=== PATIENT | female | born 1945 | race Caucasian/White ===

== ENCOUNTER → 2017-05-16 | Outpatient (CLI) | payer OTHER | LOC: FIMAGING 14:37 | PROVIDERS: ATTEND Internal Medicine | DX: Z12.31 Encounter for screening mammogram for malignant neoplasm of breast (principal) ==

== ENCOUNTER 2017-06-29 00:43 | Inpatient (IN) | payer OTHER ==
[2017-06-29] MEDS ORDERED: MAGNESIUM SULF 2 GM/WATER 50 ML BAG IV ONE (01:03)
[2017-06-29] MEDS ORDERED: MAGNESIUM SULF 2 GM/WATER 50 ML IV ONE (01:16)
[2017-06-29] MEDS ORDERED: LORazepam 2 MG/ML INJ ONE (01:17)
[2017-06-29] MEDS ORDERED: LORazepam 2 MG/ML INJ IVP ONE (01:19)
[2017-06-29] MEDS ORDERED: NS 1,000 ML IV ONE (01:21)
[2017-06-29 01:22] LABS: PLATELET COUNT 354 10^3/uL (150-400)
--- NOTE | 2017-06-29 01:26 | CPEKG ---
Heart Rate: 102 RR Interval: 588 QRSD Interval: 96 QT Interval: 368 QTC Interval: 480 QRS [place]: 45 T Wave [place]: 19 EKG Severity - ABNORMAL ECG - EKG Impression: sinsus tachycardia Electronically Signed By: Mckayla Irizarry 29-Jun-2017 07:38:58
--- NOTE | 2017-06-29 02:08 | EDPHY ---
H & P Stated Complaint: rapid hr Time Seen by Provider: 06/29/17 01:47 HPI/ROS: HPI The patient presents with palpitations since midnight, brought in by ambulance. Paramedics report that she is in a sinus tachycardia at a rate of 140. The patient said she was awakened with these. They were associated with nausea. She has not any chest pain, shortness of breath, vomiting. She does not have any dizziness or lightheadedness. As she said she was feeling well yesterday and went out to dinner. She had a cataract operation performed about 4 days ago. She she is on now steroid eyedrops as well as antibiotic eyedrops. She denies any other new medications. She has no prior history of similar. She believes she had a cardiac stress test several years ago which was unremarkable.. REVIEW OF SYSTEMS Constitutional: No fever, no chills. Eyes: No discharge. ENT: No sore throat. Cardiovascular: No chest pain, no palpitations. Respiratory: No cough, no shortness of breath. Gastrointestinal: No abdominal pain, no vomiting. Genitourinary: No hematuria. Musculoskeletal: No back pain. Skin: No rashes. Neurological: No headache. PMHx: Hypertension, hyperlipidemia Soc Hx: Lives at home PHYSICAL General Appearance: Alert, no distress Eyes: Pupils equal and round no pallor or injection ENT, Mouth: Mucous membranes moist Respiratory: There are no retractions, lungs are clear to auscultation Cardiovascular: Regular rate and rhythm Gastrointestinal: Abdomen is soft and non-tender, no masses, bowel sounds normal Neurological: A&O, moves all extremities Skin: Warm and dry, no rashes Musculoskeletal: Neck is supple non tender Extremities: symmetrical, full range of motion Psychiatric: Patient is oriented X 3, there is no agitation Source: Patient, EMS Exam Limitations: No limitations - Personal History Current Tetanus Diphtheria and Acellular Pertussis (TDAP): Yes - Medical/Surgical History Hx Asthma: No Hx Chronic Respiratory Disease: No Hx Diabetes: No Hx Cardiac Disease: Yes Hx Renal Disease: No Hx Cirrhosis: No Hx Alcoholism: No Hx HIV/AIDS: No Hx Splenectomy or Spleen Trauma: No Other PMH: HTN, Hyperlipidemia, Tubal Ligation, Appendectomy, Tonsilectomy - Social History Smoking Status: Never smoked Constitutional: Initial Vital Signs Temperature (C) 36.6 C 06/29/17 00:53 Heart Rate 150 H 06/29/17 00:53 Respiratory Rate 18 06/29/17 00:53 Blood Pressure 148/108 H 06/29/17 00:53 O2 Sat (%) 95 06/29/17 00:53 O2 Delivery Mode Room Air Allergies/Adverse Reactions: No Known Allergies Allergy (Unverified 06/29/17 00:52) Home Medications: Medication Instructions Recorded Lisinopril [Zestril 40 mg (RX)] 40 mg PO DAILY 07/02/13 Simvastatin [Zocor 20 mg (RX)] 20 mg PO DAILY18 07/02/13 amLODIPine BESYLATE [Norvasc 5 mg 5 mg PO DAILY 07/02/13 (RX)] HCTZ (*) 06/29/17 Medical Decision Making - Diagnostics EKG Interpretation: EKG: Complete interpretation has been separately recorded in the [facility] archive. Summary impression: Tachycardia with rate of 102, normal sinus rhythm , QT interval measures at 480 Imaging Results: Chest x-ray one view shows no cardiomegaly, no infiltrate, interpreted by me, radiology interpretation is pending. Imaging: I viewed and interpreted images myself Differential Diagnosis: 71-year-old female history of hypertension hyperlipidemia presents brought in by ambulance for palpitations. On monitor here initially, she appears to be in SVT. She was given fluids. It was then noted that she had a short run of ventricular tachycardia. She was given magnesium an additional fluids. She then spontaneously converted to a normal sinus rhythm with slightly prolonged QT. She felt much better after this. Labs, chest x-ray were checked and were unremarkable. Given her age and comorbidities, I feel she should be admitted for further evaluation of this SVT. We will keep her on the playground monitor. I have consulted with Dr. Martinez of the hospitalist service and we will admit her. - Data Points Laboratory Results: Laboratory Results 06/29/17 00:55 06/29/17 00:55 06/29/17 06/29/17 06/29/17 00:55 00:55 00:55 WBC RBC Hgb Hct MCV MCH MCHC RDW Plt Count MPV Neut % (Auto) Lymph % (Auto) Story % (Auto) Eos % (Auto) Baso % (Auto) Nucleat RBC Rel Count Absolute Neuts (auto) Absolute Lymphs (auto) Absolute Monos (auto) Absolute Eos (auto) Absolute Basos (auto) Absolute Nucleated RBC Immature Gran % Immature Gran # D-Dimer 0.37 ug/mLFEU ug/mLFEU (0.00-0.50) Sodium 143 mEq/L mEq/L (135-145) Potassium 3.7 mEq/L mEq/L (3.5-5.2) Chloride 104 mEq/L mEq/L (97-110) Carbon Dioxide 23 mEq/l mEq/l (22-31) Anion Gap 16 mEq/L mEq/L (8-16) BUN 15 mg/dL mg/dL (7-23) Creatinine 0.8 mg/dL mg/dL (0.6-1.0) Estimated GFR > 60 Glucose 111 mg/dL H mg/dL (70-100) Calcium 10.1 mg/dL mg/dL (8.5-10.4) Phosphorus 3.9 mg/dL mg/dL (2.5-4.5) Magnesium 2.1 mg/dL mg/dL (1.6-2.3) Troponin I < 0.012 ng/mL ng/mL (0.000-0.034) TSH 5.870 uIU/mL H uIU/mL (0.465-4.680) 06/29/17 00:55 WBC 10.23 10^3/uL H 10^3/uL (3.80-9.50) RBC 5.15 10^6/uL 10^6/uL (4.18-5.33) Hgb 15.4 g/dL g/dL (12.6-16.3) Hct 45.8 % % (38.0-47.0) MCV 88.9 fL fL (81.5-99.8) MCH 29.9 pg pg (27.9-34.1) MCHC 33.6 g/dL g/dL (32.4-36.7) RDW 13.1 % % (11.5-15.2) Plt Count 354 10^3/uL 10^3/uL (150-400) MPV 9.9 fL fL (8.7-11.7) Neut % (Auto) 51.1 % % (39.3-74.2) Lymph % (Auto) 38.7 % % (15.0-45.0) Story % (Auto) 6.6 % % (4.5-13.0) Eos % (Auto) 2.6 % % (0.6-7.6) Baso % (Auto) 0.7 % % (0.3-1.7) Nucleat RBC Rel Count 0.0 % % (0.0-0.2) Absolute Neuts (auto) 5.22 10^3/uL 10^3/uL (1.70-6.50) Absolute Lymphs (auto) 3.96 10^3/uL H 10^3/uL (1.00-3.00) Absolute Monos (auto) 0.68 10^3/uL 10^3/uL (0.30-0.80) Absolute Eos (auto) 0.27 10^3/uL 10^3/uL (0.03-0.40) Absolute Basos (auto) 0.07 10^3/uL 10^3/uL (0.02-0.10) Absolute Nucleated RBC 0.00 10^3/uL 10^3/uL (0-0.01) Immature Gran % 0.3 % % (0.0-1.1) Immature Gran # 0.03 10^3/uL 10^3/uL (0.00-0.10) D-Dimer Sodium Potassium Chloride Carbon Dioxide Anion Gap BUN Creatinine Estimated GFR Glucose Calcium Phosphorus Magnesium Troponin I TSH Medications Given: Discontinued Medications Magnesium Sulfate (Magnesium Sulf 2 Gm (Premix)) 50 mls @ 50 mls/hr IV EDNOW ONE Stop: 06/29/17 02:15 Last Admin: 06/29/17 01:22 Dose: 50 mls Sodium Chloride (Ns) 1,000 mls @ 0 mls/hr IV ONCE ONE; Wide Open PRN Reason: Protocol Stop: 06/29/17 01:22 Last Admin: 06/29/17 01:23 Dose: 1,000 mls Lorazepam (Ativan Injection) 0.5 mg IVP EDNOW ONE Stop: 06/29/17 01:20 Last Admin: 06/29/17 02:30 Dose: Not Given Potassium Chloride (Klor-Con) 40 meq PO ONCE ONE Stop: 06/29/17 03:10 Last Admin: 06/29/17 05:07 Dose: 40 meq Departure - Departure
[2017-06-29] MEDS ORDERED: ONDANSETRON DISINTEGRATING 4 MG TAB PO PRN (03:07)
[2017-06-29] MEDS ORDERED: ACETAMINOPHEN 325 MG TAB PO PRN (03:07)
[2017-06-29] MEDS ORDERED: ONDANSETRON 4 MG/2 ML VIAL IVP PRN (03:07)
[2017-06-29] MEDS ORDERED: POTASSIUM CL 20 MEQ TAB PO ONE (03:09)
--- NOTE | 2017-06-29 04:52 | GHP ---
[f rep st] HISTORY AND PHYSICAL DATE OF ADMISSION: 06/29/2017 CHIEF COMPLAINT: SVT, palpitations. HISTORY OF PRESENT ILLNESS: A 71-year-old female with history of hypertension, hyperlipidemia, and arthritis, who was brought in by ambulance with palpitations. EMS reported sinus tachycardia with rate of 140. She was awakened with a racing heart and felt like she was going to . Thirty minutes later, she developed nausea, but no emesis. No chest pain, shortness of breath, dizziness, or lightheadedness. She went out to dinner with her , had a burrito and a Mala without any issues. She had left cataract surgery 4 days ago and is currently on steroid and antibiotic eyedrops. She is currently enrolled in a study in which she receives a supplement, which is either multivitamin, cocoa, versus placebo. She drinks 3 cups of coffee a day. She walks with her at least 40-50 minutes a day and goes to the gym a couple times a week without ever having chest pain, palpitations, or shortness of breath. No PND, orthopnea, or lower extremity edema. She had a normal exercise treadmill test June 2013. In the ER, she was noted to be in SVT with heart rate in the 140s and had 5 beats of nonsustained VT, but converted to normal sinus rhythm without medications. REVIEW OF SYSTEMS: I completed a 10-point review of systems, negative except as noted in HPI. PAST MEDICAL HISTORY: Hypertension, hyperlipidemia, hip arthritis. PAST SURGICAL HISTORY: Appendectomy, tubal ligation, tonsillectomy, left cataract surgery. FAMILY HISTORY: Mother with coronary disease in the 50s. SOCIAL HISTORY: No tobacco. Has 1 alcoholic drink a week. No drugs. Is very active with walking or going to the gym. ALLERGIES: None. HOME MEDICATIONS: 1. Norvasc 5 mg daily. 2. Simvastatin 20 mg daily. 3. Zestril 40 mg daily. 4. Hydrochlorothiazide. 5. A drug study supplement daily. PHYSICAL EXAMINATION: VITAL SIGNS: Temperature afebrile, blood pressure 140/80 , heart rate 81 to 140s, respirations 16, 94% on room air. GENERAL: Well- appearing female, sitting up in bed, no acute distress. HEENT: PERRLA. Left eye with shield. CV: Regular rate and rhythm. No murmurs, gallops, or rubs. No lower extremity edema. LUNGS: Clear. No crackles or wheezing. ABDOMEN: Soft, nontender, nondistended. Positive bowel sounds. : No Arreguin. MUSCULOSKELETAL: 5/5 upper and lower extremity strength. NEURO: Two through 12 intact. PSYCH: Alert and oriented x3. LABORATORY DATA: WBC 10, hemoglobin 15, hematocrit 45, platelets 354. D-dimer is 0.37. Sodium 143, potassium 3.7, chloride 104, carbon dioxide 23, creatinine 0.8, glucose 111, calcium 10.1, phos 3.9, Mag 2.1. Troponin less than 0.012. TSH is 5.8. Chest x-ray is personally reviewed. No evidence of infection or edema. EKG: Personally reviewed, junctional tachycardia. Rhythm strip showed 4-5 beats of unsustained VT. ASSESSMENT AND PLAN: 1. Supraventricular tachycardia: She converted to normal rate and rhythm, spontaneous in the emergency room. D-dimer and troponin are negative. No ischemic changes on EKG. She denies chest pain or shortness of breath. TSH is elevated at 5. We will monitor on telemetry. Repeat troponin. Can consider an echocardiogram. 2. Nonsustained ventricular tachycardia, 4-5 beats: Mag and K were repleted. No evidence of ischemia with negative troponin. Has had a negative exercise treadmill in 2013. 3. Hypertension: Resume home medications. 4. Hyperlipidemia: Statin. 5. Deep venous thrombosis prophylaxis: Lovenox. 6. Disposition: Patient warrants observation admission given acute supraventricular tachycardia, palpitations requiring telemetry. Repeat cardiac enzymes. The patient may be able to discharge later today, if clinically stable. /[id number]/MODL MTDD
--- NOTE | 2017-06-29 05:09 | CPEKG ---
Heart Rate: 65 RR Interval: 923 P-R Interval: 140 QRSD Interval: 88 QT Interval: 416 QTC Interval: 433 P [place]: 37 QRS [place]: 32 T Wave [place]: 38 EKG Severity - NORMAL ECG - EKG Impression: SINUS RHYTHM Electronically Signed By: Mckayla Irizarry 29-Jun-2017 07:37:57
[2017-06-29] MEDS ORDERED: ENOXAPARIN 40 MG/0.4 ML SYR SC SCH (09:00)
[2017-06-29] MEDS ORDERED: HYDROCHLOROTHIAZIDE 12.5 MG PO SCH (12:15)
[2017-06-29] MEDS: LISINOPRIL 40 MG TAB PO SCH (12:43)
[2017-06-29] MEDS: amLODIPine BESYLATE 5 MG TAB PO SCH (12:43)
[2017-06-29] MEDS: HYDROCHLOROTHIAZIDE 12.5 MG CAP PO SCH (12:43)
--- NOTE | 2017-06-29 14:15 | ASMTCASEMG ---
Living Arrangements What is your living Answers: With Spouse arrangement? Who do you live with? Type Of Residence What kind of residence do Answers: House you live in? Discharge Plan Comments Coordination Status Comments Notes: Pt is a 71 y/o female admitted for SVT and palpitations. Pt will most likely d/c independent when medically stable. No therapies ordered at this time. CM available for changes. Plan: Independent Date Signed: 06/29/2017 02:14 PM Electronically Signed By:REBECCA Menjivar
[2017-06-29] MEDS: APIXABAN 5 MG TAB PO SCH ×2 (14:40→21:25)
[2017-06-29] MEDS: POLYMYXIN B SULFATE/TMP 10 ML OPHT.BTL LEFTEYE SCH ×2 (15:56→21:25)
[2017-06-29] MEDS: prednisoLONE ACET 1% 5 ML OPHT.BTL LEFTEYE SCH ×2 (15:56→21:24)
[2017-06-29] MEDS ORDERED: ATORVASTATIN CALCIUM 10 MG TAB PO SCH (18:00)
[2017-06-29] MEDS ORDERED: NON-FORMULARY NEW DRUG (Simvastatin [Zocor 20 Mg] 20 MG) PO SCH (18:00)
--- NOTE | 2017-06-29 18:18 | ECHO ---
[email or web address] [address] [address] Main: [phone] Fax: Transthoracic Echocardiogram Name: SEN TAPIA MR#: [id number] Study Date: 06/29/2017 Study Time: 02:02 PM Date of : 1945 Age: 71 year(s) Height: 154.9 cm (61 in.) Weight: 58.51 kg (129 lb.) BSA: 1.57 m2 Gender: Female Examination: Echo Indication: SVT with episodes of NS-VT Image Quality: Contrast: Requested by: Manjula Dunlap BP: 173 mmHg/98 mmHg Heart Rate: Rhythm: Indication: SVT with episodes of NS-VT Procedure Staff Auricular Therapist: Carmencita Regalado [facility] Reading Physician: Real Mcelroy Requesting Provider: Conclusions: Normal size left ventricle. No LV hypertrophy. Global hypercontractility of the left ventricle. The ejection fraction is estimated to be 75-80 %. No regional wall motion abnormality. Normal diastolic LV function. Normal size right ventricle. The left atrium is mildly dilated. The right atrium is normal in size. Mild to moderate mitral regurgitation. Mild aortic cusp calcification is noted. Mild aortic valve regurgitation is present. Moderate tricuspid regurgitation is present. The pulmonary artery pressure is mildly increased. No pericardial effusion. Measurements: Chambers Valvular Assessment AV/MV Valvular Assessment TV/PV Normal Normal Normal Name Value Range Name Value Range Name Value Range Ao Guerita (MM): 3.0 cm (2.2 cm-3.7 AV meanP mmHg ( - ) TR Vmax: 3.01 mm/s ( - ) cm) AR (PHT): 466 ms ( - ) TR PGmax: 36 mmHg ( - ) IVSd (2D): 1.0 cm (0.6 cm-1.1 MV E Vmax: 0.99 m/s ( - ) syst. PAP: 41 mmHg ( - ) cm) MV A Vmax: 1.16 m/s ( - ) LVDd (2D): 4.9 cm (3.9 cm-5.3 MV E/A: 0.85 ( - ) cm) LVDs (2D): 2.5 cm (2.1 cm-4 cm) LVPWd (2D): 0.8 cm ( - ) LVEF (MOD4): 76 % (>=55 %) Patient: SEN TAPIA Study Date: 06/29/2017 Page 1 of 2 02:02 PM EF Range: 75-80 % Continued Measurements: Chambers Valvular Assessment AV/MV Valvular Assessment TV/PV Name Value Name Value Name Value LADs: 3.7 cm MV E/E' Septal: 15.40 CVP (est.): 5 mmHg LADs Lon.1 cm MV E/E' Lateral: 15.20 LA Area: 19.7 cm2 AR Vmax: 4.69 cm/s Additional Vessels Name Value Ao Ascendin.0 cm Findings: Left Ventricle: Normal size left ventricle. No LV hypertrophy. Global hypercontractility of the left ventricle. The ejection fraction is estimated to be 75-80 %. No regional wall motion abnormality. Normal diastolic LV function. Right Ventricle: Normal size right ventricle. Left Atrium: The left atrium is mildly dilated. Right Atrium: The right atrium is normal in size. Mitral Valve: The mitral valve is normal in appearance and function. Mild to moderate mitral regurgitation. Aortic Valve: The aortic valve is tri-leaflet. Mild aortic cusp calcification is noted. Mild aortic valve regurgitation is present. Tricuspid Valve: The tricuspid valve is normal in appearance and function. Moderate tricuspid regurgitation is present. The pulmonary artery pressure is mildly increased. Pulmonic Valve: Pulmonary valve not well visualized. Aorta: The aorta is normal. Pericardium: No pericardial effusion. (No Signature Object) Patient: SEN TAPIA Study Date: 06/29/2017 Page 2 of 2 02:02 PM [id number]
[2017-06-29 18:28] LABS: PLATELET COUNT 305 10^3/uL (150-400)
--- NOTE | 2017-06-29 18:29 | PDCARPN ---
Cardiology Progress Note Assessment/Plan: Assessment: Admitted by Rishabh Lou MD, with EP after coming in with SVT, and episodes of VT. Dr Lou ordered an ECHO, and if EF is > 40% , he will start Sotolol 120 mg BID With EKG 2 hrs after each dose. ECHO is now read showing EF at 70 %. Will get Sotolol started. I did visit with Lurdes as she walked in the [place], and she is aware of this plan. She is in agreement to start the Sotolol Load. Plan: 06/29/17 18:24 Objective: Vital Signs (8 Hrs) Temp Pulse Resp BP Pulse Ox 06/29/17 16:35 36.6 C 64 12 144/82 H 94 06/29/17 11:07 36.6 C 66 12 173/98 H 97 Intake/Output (24 Hrs) 06/28/17 06/29/17 06/30/17 05:59 05:59 05:59 Intake Total 1730 Output Total 1300 Balance 430 Intake: Oral (ml) 730 IV Infused (ml) 1000 Output: Urine (ml) 1300 Toilet 1300 Other: Weight 58.96 kg Number of Voids Toilet 2 Result Diagrams: 06/29/17 00:55 06/29/17 00:55 Cardiac Labs: Cardiac Lab Results (72 Hrs) 06/29/17 05:30 Troponin I 0.013 ICD10 Worksheet Patient Problems: Problems Problem Status Onset Chest pain Acute
[2017-06-29 18:41] LABS: INR 1.1 (0.83-1.16); PROTIME(PATIENT) 14.4 SEC (12.0-15.0)
[2017-06-29] MEDS ORDERED: SOTALOL HCL 80 MG TAB PO SCH (21:00)
[2017-06-29] MEDS: SIMVASTATIN 20 MG PO SCH (21:24)
--- NOTE | 2017-06-29 22:11 | GCON ---
[f rep st] CONSULTATION REFERRING PHYSICIAN: Nerissa Martinez MD HISTORY OF PRESENT ILLNESS: This is a 71-year-old female with past history of hypertension, dyslipid emia, and arthritis, who was in the usual state of health and went to [employer] dinner, had 1 M argarita during dinner, which she is not out of the ordinary for her and eventually after watching [employer] went to bed. When she woke up around midnight, she felt her heart racing and she felt as if she was going to pass out. She developed some nausea without any vomiting. No chest pain, rodo rtness of breath, lightheadedness, or dizziness. She had cataract surgery 4 days ago and is currentl y on steroids and antibiotic eye drops. She is generally very active and does not have limitations i n terms of her activities. She had a normal stress test in June 2013. With the above history, t he patient came to the emergency room and was found to be in atrial flutter in 2:1 conduction with oc casional 1:1 conduction related aberrancy versus nonsustained VT. She self converted into normal sin us rhythm and was kept overnight. REVIEW OF SYSTEMS: Other than above is negative. PAST MEDICAL HISTORY: Hypertension, dyslipidemia, hip arthritis. PAST SURGICAL HISTORY: Appendectomy, tubal ligation, tonsillectomy, left cataract surgery. FAMILY HISTORY: Mother with coronary artery disease in the 50s. SOCIAL HISTORY: No tobacco. One alcoholic drink a week. No drug abuse. Is very active. ALLERGIES: None. HOME MEDICATIONS: Norvasc 5 mg daily, simvastatin 20 mg daily, 40 mg daily, hydrochloroth iazide. PHYSICAL EXAM: VITAL SIGNS: Stable. Blood pressure 140/80, pulse of 80, respiratory rate 16. HEEN T: Pupils equal reacting to light accommodating. Mucous membranes moist. No JVD. No lymphadenopat hy. No thyromegaly. CHEST: Good air entry bilaterally equal. CARDIOVASCULAR: Regular no S3. No murmurs. ABDOMEN: Soft, nontender. No guarding or rigidity. Bowel sounds present. EXTREMITIES: No edema. NEUROLOGIC: Grossly nonfocal. PSYCH: Alert and oriented x3. SKIN: No rashes noted. LABORATORY DATA: White count of 10, TSH of 5.8. Troponin less than 0.012. Monitoring results evalu ated and the patient has flutter with some nonsustained VT. Echocardiogram shows normal EF. Mild-to -moderate MR, [id number] TR. IMPRESSION AND PLAN: 1. This is a 71-year-old female with hypertension, who comes in with symptomatic atrial flutter with some occasional nonsustained ventricular tachycardia versus 1:1 conduction and aberrancy. Concernin g the patient's symptoms, I believe the rhythm control would be the optimal option and hence we will start her on sotalol 120 mg p.o. twice daily. The patient's CHADS score is 4. I have explained to h er the risks and benefits of oral anticoagulation and she is in favor of oral anticoagulation and we will start the same. If she has breakthrough episodes despite the use of antiarrhythmic, then we gerard l consider ablation therapy. 2. Hypertension. This is currently under good control. No changes are needed. 3. Dyslipidemia. We will continue to manage as an outpatient. Thank you for letting us participate in the patient's care. /[id number]/MODL
--- NOTE | 2017-06-29 23:41 | CPEKG ---
Heart Rate: 50 RR Interval: 1200 P-R Interval: 144 QRSD Interval: 86 QT Interval: 520 QTC Interval: 475 P [place]: 36 QRS [place]: 61 T Wave [place]: 58 EKG Severity - NORMAL ECG - EKG Impression: SINUS RHYTHM Electronically Signed By: Silvestre Brasher 30-Jun-2017 06:33:34
[2017-06-29] MEDS: SOTALOL HCL 80 MG TAB PO SCH (23:44)
[2017-06-30 04:21] LABS: INR 1.17 (0.83-1.16); PROTIME(PATIENT) 15.1 SEC (12.0-15.0)
[2017-06-30] MEDS: prednisoLONE ACET 1% 5 ML OPHT.BTL LEFTEYE SCH ×4 (07:03→20:07)
[2017-06-30] MEDS: POLYMYXIN B SULFATE/TMP 10 ML OPHT.BTL LEFTEYE SCH ×4 (07:03→20:07)
[2017-06-30] MEDS: amLODIPine BESYLATE 5 MG TAB PO SCH (09:40)
[2017-06-30] MEDS: APIXABAN 5 MG TAB PO SCH ×2 (09:41→20:07)
[2017-06-30] MEDS: HYDROCHLOROTHIAZIDE 12.5 MG CAP PO SCH (09:41)
[2017-06-30] MEDS: LISINOPRIL 40 MG TAB PO SCH (09:41)
[2017-06-30] MEDS: SOTALOL HCL 80 MG TAB PO SCH ×2 (09:42→20:07)
--- NOTE | 2017-06-30 11:51 | CPEKG ---
Heart Rate: 47 RR Interval: 1277 P-R Interval: 136 QRSD Interval: 90 QT Interval: 492 QTC Interval: 435 P [place]: 39 QRS [place]: 53 T Wave [place]: 50 EKG Severity - OTHERWISE NORMAL ECG - EKG Impression: SINUS BRADYCARDIA Electronically Signed By: Silvestre Brasher 30-Jun-2017 14:26:56
--- NOTE | 2017-06-30 14:13 | PDCARPN ---
Cardiology Progress Note Assessment/Plan: Assessment: Admitted by Rishabh Lou MD, with EP after coming in with SVT, and episodes of VT. Dr Lou ordered an ECHO, and if EF is > 40% , he will start Sotolol 120 mg BID With EKG 2 hrs after each dose. ECHO is now read showing EF at 70 %. Will get Sotolol started. I did visit with Lurdes as she walked in the han[place], and she is aware of this plan. She is in agreement to start the Sotolol Load. Plan: 06/29/17 18:24 06/30/17 14:09 Walking the halls and feeling well today. She has no lightheadedness or SOB, No palpitations. Tolerating the Sotalol load well. No positional symptoms of orthostasis. PLAN: Home tomorrow after noon on Sotalol 120 BID if she continues to tolerate the medication. Subjective: I have been walking the halls and having no problems or symptoms. Reviewed/Discussed With: family, multidisciplinary team Objective: Vital Signs (8 Hrs) Temp Pulse Resp BP Pulse Ox 06/30/17 12:00 37.1 C 47 L 12 145/82 H 97 06/30/17 08:00 36.3 C 57 L 18 161/87 H 97 Intake/Output (24 Hrs) 06/29/17 06/30/17 07/01/17 05:59 05:59 05:59 Intake Total 2030 Output Total 3100 Balance -1070 Intake: Oral (ml) 1030 IV Infused (ml) 1000 Output: Urine (ml) 3100 Toilet 3100 Other: Weight 58.96 kg Intake Quantity Yes Sufficient Number of Voids Toilet 2 Result Diagrams: 06/29/17 18:15 06/30/17 03:42 Cardiac Labs: Cardiac Lab Results (72 Hrs) 06/29/17 05:30 Troponin I 0.013 - Physical Exam Constitutional: no apparent distress Cardiovascular: regular rate and rhythm, no murmurs, no rubs Respiratory: clear to auscultate bilat, no crackles, no wheezes Skin: warm, no edema Neurologic: AAOx3 Psychiatric: cooperative, interactive ICD10 Worksheet Patient Problems: Problems Problem Status Onset Chest pain Acute
--- NOTE | 2017-06-30 14:23 | HOSPPROG ---
Hospitalist Progress Note Assessment/Plan: 71-year-old female admitted with an SVT and found to have atrial flutter at 2: 21 a.m. And 1-1 conduction. There is also episodes of an SVT in which the patient self converted. She has been stable in sinus rhythm and because of the an SVT will be started on sotalol. Patient's rhythm has been stable in NSR no chest pain or shortness of breath. She has a Karthikeyan score of 4. -cardiac dysrhythmia with atrial flutter at 2:21 a.m. 1-1 and an SVT self converted. Now on sotalol with a normal QT interval. Plan: Continue dosing sotalol. She is currently at her 2nd dose today. QT intervals mood normal. Monitors been stable on NSR. Will continue to monitor -hypertension currently in good control. -status post bilateral cataracts recently and doing well. She had basic lens implants and is seen well and doing well and continuing her eyedrops. Plan: Continue monitor technician ECG monitor and dosing sotalol. Case is discussed with Cardiology. ECG reviewed. QT interval 0.49, rhythm is NSR at 55. QTC is 0.435. No prolongation is evident. Time: 40 min Subjective: Reports she is feeling well without complaints no chest pain shortness of breath. Vision is good as she is status post bilateral cataracts. Objective: Vital Signs Temp Pulse Resp BP Pulse Ox 37.1 C 47 L 12 145/82 H 97 06/30/17 12:00 06/30/17 12:00 06/30/17 12:00 06/30/17 12:00 06/30/17 12:00 Laboratory Results 06/29/17 18:15 06/30/17 03:42 06/29/17 06/30/17 07/01/17 05:59 05:59 05:59 Intake Total 2030 Output Total 3100 Balance -1070 PT 15.1 SEC (12.0-15.0) H 06/30/17 03:42 INR 1.17 (0.83-1.16) H 06/30/17 03:42 - Time Spent With Patient Time Spent with Patient: greater than 35 minutes Time Spent with Patient: Greater than 35 minutes spent on this patients care, greater than 50% of time spent counseling, educating, and coordinating care regarding the above mentioned plan. - Pending Discharge Pending Discharge Within 24 Hours: Yes Pending Discharge Date: 07/01/17 Pending Discharge Time: 11:00 - Physical Exam Constitutional: no apparent distress Eyes: PERRL, anicteric sclera Ears, Nose, Mouth, Throat: moist mucous membranes, hearing normal Cardiovascular: regular rate and rhythym, no murmur, rub, or gallop, other ( Monitor review shows normal sinus rhythm without ectopy.) Respiratory: no respiratory distress, no rales or rhonchi Gastrointestinal: normoactive bowel sounds, soft, non-tender abdomen, no palpable masses Neurologic: AAOx3, CN II-XII Intact Psychiatric: interacting appropriately ICD10 Worksheet Patient Problems: Problems Problem Status Onset Chest pain Acute
--- NOTE | 2017-06-30 15:23 | PDMN ---
Medical Necessity Medical necessity: Patient meets inpatient criteria per physician note and [facility] [place] (new symptomatic atrial flutter with occasional non-sustained VT vs 1:1 conduction with aberrancy which self-converted; Sotalol loading initiated ; LOS will be > 2 midnights for prolonged monitoring while new medication initiated requiring cardiac monitoring.)
[2017-06-30] MEDS: SIMVASTATIN 20 MG PO SCH (17:52)
--- NOTE | 2017-06-30 22:02 | CPEKG ---
Heart Rate: 79 RR Interval: 759 P-R Interval: 148 QRSD Interval: 84 QT Interval: 404 QTC Interval: 464 P North Reading: 40 QRS North Reading: 67 EKG Severity - ABNORMAL ECG - EKG Impression: SINUS RHYTHM EKG Impression: NONSPECIFIC T ABNORMALITIES, ANT-LAT LEADS Electronically Signed By: Silvestre Brasher 01-Jul-2017 09:30:47
[2017-07-01] MEDS: prednisoLONE ACET 1% 5 ML OPHT.BTL LEFTEYE SCH (05:35)
[2017-07-01] MEDS: POLYMYXIN B SULFATE/TMP 10 ML OPHT.BTL LEFTEYE SCH (05:36)
[2017-07-01] MEDS: HYDROCHLOROTHIAZIDE 12.5 MG CAP PO SCH (07:43)
[2017-07-01] MEDS: SOTALOL HCL 80 MG TAB PO SCH (07:44)
[2017-07-01] MEDS: APIXABAN 5 MG TAB PO SCH (07:44)
[2017-07-01] MEDS: amLODIPine BESYLATE 5 MG TAB PO SCH (07:44)
[2017-07-01] MEDS: LISINOPRIL 40 MG TAB PO SCH (07:44)
--- NOTE | 2017-07-01 10:29 | CPEKG ---
Heart Rate: 42 RR Interval: 1429 P-R Interval: 152 QRSD Interval: 90 QT Interval: 504 QTC Interval: 422 P Donahue: 47 QRS Donahue: 52 T Wave Donahue: 46 EKG Severity - OTHERWISE NORMAL ECG - EKG Impression: SINUS BRADYCARDIA Electronically Signed By: Silvestre Brasher 02-Jul-2017 09:51:59
--- NOTE | 2017-07-01 11:24 | PDCARPN ---
Cardiology Progress Note Assessment/Plan: Assessment: Admitted by Rishabh Lou MD, with EP after coming in with SVT, and episodes of VT. Dr Lou ordered an ECHO, and if EF is > 40% , he will start Sotolol 120 mg BID With EKG 2 hrs after each dose. ECHO is now read showing EF at 70 %. Will get Sotolol started. I did visit with Lurdes as she walked in the [place], and she is aware of this plan. She is in agreement to start the Sotolol Load. Plan: 06/29/17 18:24 06/30/17 14:09 Walking the halls and feeling well today. She has no lightheadedness or SOB, No palpitations. Tolerating the Sotalol load well. No positional symptoms of orthostasis. PLAN: Home tomorrow after noon on Sotalol 120 BID if she continues to tolerate the medication. 07/01/17 11:21 Lurdes continues to do well. She has no lightheadedness or dizziness with the Sotalol. She has had her last dose this morning. She is to stay until after noon to ensure she is doing well. EKG at 10:00 QTcF 447, HR 42 and tolerating it well. She is walking the halls doing laps. Plan for discharge after noon. I spoke with Dr Lou, He recommends decreasing Sotalol dose to 80 mg BID, and follow up with him in 2 weeks. Follow up at clinic with Dr Lou in 2 weeks. Sooner should she become symptomatic. Will sign off. 07/01/17 12:06 Subjective: I feel great. Have been walking laps in [place]. Reviewed/Discussed With: multidisciplinary team Objective: Vital Signs (8 Hrs) Temp Pulse Resp BP Pulse Ox 07/01/17 07:48 36.3 C 53 L 16 182/78 H 98 07/01/17 04:00 36.7 C 54 L 16 137/61 H 92 Intake/Output (24 Hrs) 06/30/17 07/01/17 07/02/17 05:59 05:59 05:59 Intake Total 850 Output Total 2100 Balance -1250 Intake: Oral (ml) 850 IV Intake (ml) 0 Output: Urine (ml) 2100 Toilet 2100 Other: Number of Stools Toilet 1 Result Diagrams: 06/29/17 18:15 06/30/17 03:42 EK:00 AM HR 42, QTcF 447 - Physical Exam Cardiovascular: regular rate and rhythm, no murmurs, no rubs Respiratory: clear to auscultate bilat, no crackles, no wheezes Skin: warm, no edema Neurologic: AAOx3 Psychiatric: cooperative, interactive ICD10 Worksheet Patient Problems: Problems Problem Status Onset Paroxysmal SVT (supraventricular tachycardia) Acute Paroxysmal VT Acute Chest pain Acute
[2017-07-01 11:52] VITALS: BP 165/71; PULSE 47; RESP 18; TEMP 97.5; O2SAT 95
--- NOTE | 2017-07-01 12:27 | ASMTLACE ---
MAEGANE Length of stay for Answers: 3 days current admission Acuity / Level of Answers: Yes Care: Did the patient have an inpatient admission? # of Emergency department Answers: 1-2 visits in the last 6 months Score: 7 Date Signed: 07/01/2017 12:26 PM Electronically Signed By:CHAR Singer
--- NOTE | 2017-07-01 15:51 | ASDISCHSUM ---
Discharge Information Plan Status:Home with No Needs Medically Cleared to Leave:06/30/2017 Discharge Date:07/01/2017 12:50 PM CM D/C Disposition:Home, Routine, Self-Care ADT D/C Disposition:Home, Routine, Self-Care Projected Discharge Date:07/01/2017 12:50 PM Transportation at D/C:Family Discharge Delay Reason: Follow-Up Date:07/01/2017 12:50 PM Discharge Slot: Final Diagnosis: Placement Information Patient Contact Information Contact Name:AP Relationship: Address:[address] City:[place] Alternate Phone: [facility]/Zip Code:[place] [address] Email: Financial Information Financial Class:Medicare Advantage Plans Primary Plan Desc:[facility] [employer] Primary Plan Number:[id number] Secondary Plan Desc: Secondary Plan Number: Assessment Information LACE LACE Length of stay for Answers: 3 days current admission Acuity / Level of Answers: Yes Care: Did the patient have an inpatient admission? # of Emergency department Answers: 1-2 visits in the last 6 months Score: 7 Date Signed: 07/01/2017 12:26 PM Electronically Signed By:CHAR Signer [facility] Initial CM Assessment Living Arrangements What is your living Answers: With Spouse arrangement? Who do you live with? Type Of Residence What kind of residence do Answers: House you live in? Discharge Plan Comments Coordination Status Comments Notes: Pt is a 71 y/o female admitted for SVT and palpitations. Pt will most likely d/c independent when medically stable. No therapies ordered at this time. CM available for changes. Plan: Independent Date Signed: 06/29/2017 02:14 PM Electronically Signed By:REBECCA Menjivar Intervention Information Intervention Type:*MEHRDAD-Signed Date of Service:06/29/2017 10:22 AM Patient Type:Observation Staff Member:Libby Nunes Hours: Discipline: Severity: Comment:
[2017-07-01] MEDS ORDERED: SOTALOL HCL 80 MG TAB PO SCH (21:00)
--- NOTE | 2017-07-02 13:15 | GDS ---
[f rep st] DISCHARGE SUMMARY NEW AND ACUTE DIAGNOSES: 1. Nonsustained ventricular tachycardia. 2. Palpitations. 3. Hypertension. 4. Atrial fibrillation and flutter, all with nonsustained ventricular tachycardia at 1:1 conduction and aberrancy. 5. Anticoagulation with Eliquis for atrial flutter. CONSULTATION: Cardiology. PROCEDURES: Echocardiogram, showing normal wall motion and EF of 70%. HOSPITAL COURSE: A 71-year-old female, presented with acute palpitations and was noted on the monito r to have brief episodes of nonsustained ventricular tachycardia. She had a normal echocardiogram wi th an EF of 70%. She was started on sotalol. ECG was monitored and showed no evidence of QT interva l prolongation. She tolerated 5 initial doses without prolongation and, thus, was discharged to [facility] followup. DISCHARGE MEDICATIONS: New medications are Eliquis 5 mg p.o. twice daily, sotalol 80 mg twice daily. Continued medications are simvastatin 20 mg, lisinopril 40 mg daily, Norvasc 5 mg daily, prednisolo ne acetate eye drops, polymyxin B eye drops, hydrochlorothiazide 12.5 mg a day. PLAN: The patient will follow up with Rishabh Lou in approximately 2 weeks. Her PCP is Shyanne Mckeon . TIME: This discharge required 45 minutes, greater than 50% to counseling services manager and coordinate care. /[id number]/MODL
== END 2017-07-01 12:50 | disposition home or self-care (01) | DRG 310 ==
LOC: EDUNIT# → F2W 08:00 → OBSVTOIN 06-30 15:06
PROVIDERS: ADMIT Internal Medicine; ATTEND Internal Medicine
DX: I47.2 Ventricular tachycardia (principal); I10 Essential (primary) hypertension; R00.2 Palpitations; I48.91 Unspecified atrial fibrillation; I48.92 Unspecified atrial flutter; E78.5 Hyperlipidemia, unspecified; Z79.01 Long term (current) use of anticoagulants; Z98.42 Cataract extraction status, left eye
CPT/HCPCS: G0378; J1650; J2060; J3475

== ENCOUNTER 2017-07-13 19:39 | Emergency (ER) | payer OTHER ==
[2017-07-13 19:52] VITALS: RESP 16
[2017-07-13] MEDS ORDERED: NS 1,000 ML IV ONE (20:01)
[2017-07-13] MEDS ORDERED: fentaNYL 100 MCG/2 ML INJ IVP ONE (20:01)
--- NOTE | 2017-07-13 20:04 | EDPHY ---
H & P Time Seen by Provider: 07/13/17 19:45 HPI/ROS: CHIEF COMPLAINT: Abdominal pain HISTORY OF PRESENT ILLNESS: History of appendectomy and tubal ligation more than 40 years ago. Has abdominal pain which is lower and bilateral since early this morning. Associated with some nausea today and is worse with oral intake. No diarrhea or vomiting. Not better worse with position. Does not radiate.Takes sotalol for atrial fibrillation. Symptoms still moderate. REVIEW OF SYSTEMS: Eye: no change in vision ENT: no sore throat Cardiac: no chest pain or syncope Pulmonary: no cough or SOB Abdomen: HPI Musculoskeletal: no back pain Skin: no rash Neuro: no headache Constitutional: no fever : no urinary symptoms, no urinary frequency or dysuria A comprehensive 10 point review of systems is otherwise negative aside from elements mentioned in the history of present illness. PAST MEDICAL HISTORY: Includes hypertension, appendectomy, tubal ligation, atrial fibrillation on Eliquis. Social history: here with General Appearance: Alert and conversant, cooperative. Eyes: No scleral icterus. ENT, Mouth: Normal mucous membranes. Respiratory: Normal respiratory effort, breath sounds equal, lungs are clear to auscultation. Cardiovascular: Regular rate and rhythm. Gastrointestinal: Left lower quadrant tenderness left side greater than right and bowel sounds are present. No rebound or guarding. No peritoneal signs. No pulsatile mass. No hernia appreciated. Neurological: Alert, face symmetric, normal motor and sensory in extremities. Skin: Warm and dry, no rashes. Musculoskeletal: No peripheral edema. Psychiatric: Not agitated. Emergency Department course/MDM: Fentanyl 50 mcg IV, i-STAT and CT abdomen and pelvis to evaluate for diverticulitis or bowel obstruction. Discussed CT results, constipation without perforation or obstruction or infection, ED treatment initiated. 2243: Oral magnesium citrate and an enema, had some gas in the bathroom, would prefer to go home and treat her constipation there. Ambulatory, appears comfortable, did not have peritoneal signs on exam. I think that her decision is reasonable. Offered further ED treatments and declined. Smoking Status: Never smoked Constitutional: Initial Vital Signs Temperature (C) 36.8 C 07/13/17 19:45 Heart Rate 59 L 07/13/17 19:45 Respiratory Rate 16 07/13/17 19:45 Blood Pressure 195/93 H 07/13/17 19:45 O2 Sat (%) 94 07/13/17 19:45 O2 Delivery Mode Room Air Allergies/Adverse Reactions: No Known Allergies Allergy (Verified 07/14/17 07:03) Home Medications: Medication Instructions Recorded Lisinopril [Zestril 40 mg (*)] 40 mg PO DAILY@62907/02/13 Simvastatin [Zocor 20 mg] 20 mg PO DAILY@182907/02/13 amLODIPine BESYLATE [Norvasc 5 mg 5 mg PO DAILY@62907/02/13 (*)] Hydrochlorothiazide 12.5 mg PO DAILY@62906/29/17 prednisoLONE ACET 1% [Pred Forte 1 drops LEFTEYE BID 06/29/17 1% (*)] Apixaban [Eliquis] 5 mg PO BID@629,182907/13/17 Sotalol HCl [Betapace 80 MG (*)] 80 mg PO BID@629,182907/13/17 Medical Decision Making - Diagnostics Imaging Results: CT per Dr. Gamez shows constipation otherwise negative. 2112. Imaging: Discussed imaging studies w/ callisthenics instructor Radiologist Differential Diagnosis: Differential considered including but not limited to mesenteric ischemia, diverticulitis, UTI, bowel obstruction. - Data Points Laboratory Results: Laboratory Results 07/13/17 20:11 07/13/17 20:11 Medications Given: Discontinued Medications Fentanyl (Sublimaze) 50 mcg IVP EDNOW ONE Stop: 07/13/17 20:02 Last Admin: 07/13/17 20:21 Dose: 50 mcg Sodium Chloride (Ns) 1,000 mls @ 0 mls/hr IV EDNOW ONE; Wide Open PRN Reason: Protocol Stop: 07/13/17 20:02 Last Admin: 07/13/17 20:22 Dose: 1,000 mls Magnesium Citrate (Magnesium Citrate) 300 ml PO EDNOW ONE Stop: 07/13/17 21:25 Last Admin: 07/13/17 21:55 Dose: 300 ml Departure - Departure Disposition: Home, Routine, Self-Care Clinical Impression: Constipation Qualifiers: Constipation type: unspecified constipation type Qualified Code(s): K59.00 - Constipation, unspecified Condition: Good Instructions: Constipation (ED) Referrals: Shyanne Mckeon MD [Primary Care Provider] - As per Instructions
[2017-07-13 20:18] LABS: PLATELET COUNT 277 10^3/uL (150-400)
[2017-07-13] MEDS ORDERED: IOPAMIDOL (ISOVUE-300) 100 ML BTL ONE (20:18)
[2017-07-13 20:26] VITALS: O2SAT 93
[2017-07-13] MEDS ORDERED: MAGNESIUM CITRATE 300 ML BOTTLE PO ONE (21:24)
[2017-07-13 22:50] VITALS: BP 156/96; PULSE 68; TEMP 98.4
== END 2017-07-13 22:49 | disposition home or self-care (01) ==
DX: K59.00 Constipation, unspecified (principal); E86.9 Volume depletion, unspecified; I10 Essential (primary) hypertension; Z90.49 Acquired absence of other specified parts of digestive tract; Z79.01 Long term (current) use of anticoagulants; Z98.51 Tubal ligation status
CPT/HCPCS: 74177; 96361; 96374; 99285; J3010; Q9967; 82947-QW

== ENCOUNTER 2017-07-14 06:46 | Inpatient (IN) | payer OTHER ==
[2017-07-14] MEDS ORDERED: fentaNYL 100 MCG/2 ML INJ IVP ONE (07:24)
[2017-07-14] MEDS ORDERED: NS 500 ML IV ONE (07:24)
[2017-07-14] MEDS ORDERED: MAGNESIUM CITRATE 300 ML BOTTLE PO ONE (07:26)
[2017-07-14] MEDS ORDERED: DOCUSATE SODIUM 100 MG CAP PO ONE (07:26)
[2017-07-14] MEDS ORDERED: ONDANSETRON 4 MG/2 ML VIAL IVP ONE (07:26)
[2017-07-14 07:36] LABS: PLATELET COUNT 278 10^3/uL (150-400)
--- NOTE | 2017-07-14 07:36 | EDPHY ---
H & P Time Seen by Provider: 07/14/17 07:21 HPI/ROS: CHIEF COMPLAINT: Constipation, abdominal pain HISTORY OF PRESENT ILLNESS: Patient is a 71-year-old female with a history of tubal ligation appendectomy who presents to the emergency department with ongoing abdominal discomfort and constipation. The patient was seen in the emergency department yesterday for the same complaint. Patient states 2 nights ago she developed some lower abdominal discomfort. Her pain worsened and was accompanied by nausea. She subsequent came to the emergency department on 2017. She was seen by Dr. Murillo. A CT scan was performed which showed severe constipation. There is abundant amount of stool throughout the entire colon, completely impacting the entire colon solid per report. Patient was given an enema in the emergency department. She was given Mag citrate orally and discharged home. Upon arriving home she vomited. She has been inability keep anything down. She has been unable to take her medications. She has ongoing abdominal discomfort. She has been able to urinate with no dysuria or frequency. No fevers or chills. Patient states that she had an episode of ventricular tachycardia in June and was started on sotalol. This is her only new medication. She has an appointment with Dr. Ruiz today. REVIEW OF SYSTEMS: My complete review of systems is negative except as mentioned in the HPI. Past Medical/Surgical History: Includes hypertension, atrial fibrillation, episode of V-tach Past surgical history: Includes tubal ligation, appendectomy, tonsillectomy Social history: Patient is . She lives at home. Smoking Status: Never smoked Physical Exam: 37.7, 149/79, 76, 16, 94% on room air GENERAL: Mild acute distress, alert. HEENT: Eyes normal to inspection, normal pharynx, no signs of dehydration. NECK: No thyromegaly, no lymphadenopathy, supple. RESPIRATORY: Clear to auscultation bilaterally, no rales, rhonchi or wheezing. CVS: Regular rate and rhythm, no rubs, murmurs, or gallops. ABDOMEN: Soft, lower abdominal tenderness to palpation with no rebound or guarding, minimal distension, no organomegaly. BACK: Normal to inspection, no CVA tenderness. SKIN: Normal color, no rash, warm, dry. No pallor. EXTREMITIES: No pedal edema, no calf tenderness, no Homans sign or cords, no joint swelling. NEURO/PSYCH: Alert and oriented x3, normal mood and affect, normal motor sensory exam. No obvious cranial nerve deficit. Constitutional: Initial Vital Signs Temperature (C) 37.7 C 07/14/17 07:04 Heart Rate 76 07/14/17 07:04 Respiratory Rate 16 07/14/17 07:04 Blood Pressure 149/79 H 07/14/17 07:04 O2 Sat (%) 94 07/14/17 07:04 O2 Delivery Mode Room Air Allergies/Adverse Reactions: No Known Allergies Allergy (Verified 07/14/17 07:03) Home Medications: Medication Instructions Recorded Lisinopril [Zestril 40 mg (*)] 40 mg PO DAILY@62907/02/13 Simvastatin [Zocor 20 mg] 20 mg PO DAILY@182907/02/13 amLODIPine BESYLATE [Norvasc 5 mg 5 mg PO DAILY@62907/02/13 (*)] Hydrochlorothiazide 12.5 mg PO DAILY@62906/29/17 prednisoLONE ACET 1% [Pred Forte 1 drops LEFTEYE BID 06/29/17 1% (*)] Apixaban [Eliquis] 5 mg PO BID@0630,182907/13/17 Sotalol HCl [Betapace 80 MG (*)] 80 mg PO BID@0630,182907/13/17 Medical Decision Making ED Course/Re-evaluation: In the emergency department I discussed possible etiologies with the patient and her . I reviewed the patient's previous medical record including her visit from 07/13/2017. Differential Diagnosis: My differential includes but is not limited to constipation, perforation, small- bowel obstruction, dehydration - Data Points Laboratory Results: 07/14/17 07/14/17 07:22 07:22 WBC Pending RBC Pending Hgb Pending Hct Pending MCV Pending MCH Pending MCHC Pending RDW Pending Plt Count Pending MPV Pending Neut % (Auto) Pending Lymph % (Auto) Pending [place] % (Auto) Pending Eos % (Auto) Pending Baso % (Auto) Pending Nucleat RBC Rel Count Pending Absolute Neuts (auto) Pending Absolute Lymphs (auto) Pending Absolute Monos (auto) Pending Absolute Eos (auto) Pending Absolute Basos (auto) Pending Absolute Nucleated RBC Pending Immature Gran % Pending Immature Gran # Pending Sodium Pending Potassium Pending Chloride Pending Carbon Dioxide Pending Anion Gap Pending BUN Pending Creatinine Pending Estimated GFR Pending Glucose Pending Calcium Pending Total Bilirubin Pending Conjugated Bilirubin Pending Unconjugated Bilirubin Pending AST Pending ALT Pending Alkaline Phosphatase Pending Total Protein Pending Albumin Pending Lipase Pending Departure - Departure Disposition: [facility] Acute Clinical Impression: Abdominal pain Qualifiers: Abdominal location: lower abdomen, unspecified Qualified Code(s): R10.30 - Lower abdominal pain, unspecified Constipation Qualifiers: Constipation type: unspecified constipation type Qualified Code(s): K59.00 - Constipation, unspecified Condition: Fair Referrals: Shyanne Mckeon MD [Primary Care Provider] - As per Instructions
[2017-07-14] MEDS ORDERED: ONDANSETRON 4 MG/2 ML VIAL ONE (08:00)
[2017-07-14] MEDS ORDERED: BISACODYL 10 MG SUPP PR ONE (10:15)
[2017-07-14] MEDS ORDERED: [UNRECOGNIZED DRUG - OTHER] PR ONE (12:26)
[2017-07-14] MEDS: NS 1,000 ML IV SCH (12:26)
[2017-07-14] MEDS ORDERED: METHYLNALTREXONE BROMIDE 12 MG/0.6 ML INJ SC ONE (13:00)
[2017-07-14] MEDS ORDERED: ONDANSETRON 4 MG/2 ML VIAL IVP PRN (13:06)
--- NOTE | 2017-07-14 14:35 | ASMTCASEMG ---
Living Arrangements What is your living Answers: With Spouse arrangement? Who do you live with? Type Of Residence What kind of residence do Answers: House you live in? Discharge Plan Comments Coordination Status Comments Notes: Pt is a 71 y/o female admitted for constipation and abdominal pain. Therapies have been ordered and awaiting recommendation. Needs are TBD at this time. CM to follow. Plan: TBD Date Signed: 07/14/2017 02:34 PM Electronically Signed By:REBECCA Menjivar
[2017-07-14] MEDS: ENOXAPARIN 60 MG/0.6 ML SYR SC SCH ×2 (15:16→20:45)
[2017-07-14] MEDS: PIPERACILLIN/TAZO 3.375 GM/DEX 50 ML IV SCH (17:33)
--- NOTE | 2017-07-14 17:43 | PDGENHP ---
History and Physical History and Physical: CC: Abdominal pain HISTORY: This patient comes to the emergency room today complaining of diffuse abdominal pain which is worst across the lower abdomen and started yesterday morning. The pain is been present consistently since that time with some waxing and waning but over the last 24 hr certainly has been continually getting worse and is now extreme in her estimation. She has had several episodes of nausea and vomiting. There is no blood in the emesis. She had a small bowel movement yesterday morning none since then and says she does not feel like she was having any significant change in bowel function recently. She denies any chills or sweats, urinary symptoms, blood in the stools. She has never had an episode of pain quite like this. She came to the ER here yesterday with the same symptoms and was felt to be constipated. She had a CT scan which was read as showing marked constipation without other concerning findings. The patient was given some magnesium citrate and discharged from the ER. At home she started vomiting and continued to vomit. She came back to the ER today with ongoing symptoms and again is diagnosed with severe constipation and admitted to hospital with plans to evacuate her bowels. She does have a history of a colonoscopy 20+ years ago for cancer screening which showed diverticuli but no other abnormalities She has history of appendectomy and tubal ligation but no other abdominal surgeries or abdominal injuries. There is no history of any other digestive or abdominal illnesses that she can recall. Notably she was admitted to this hospital a couple weeks ago with atrial fibrillation and apparently also had what was felt to be some ventricular tachycardia. She had been referred by Dr. Ruiz for admission. She was started on Eliquis and sotalol at that time. She has been tolerating these medicines well at home without any cardiac symptoms but has been unable to get these medicines in over the last couple days with the above GI symptoms. Notably an echocardiogram during that admission showed an ejection fraction of 70%. ROS: A comprehensive 10 system review revealed no other significant findings PAST MEDICAL HISTORY: Atrial fibrillation Possible ventricular tachycardia hypertension Hyperlipidemia Osteoarthritis Appendectomy Tubal ligation FAMILY MEDICAL HISTORY: Her father had coronary disease SOCIAL HISTORY: She is lives at home with her . She uses no tobacco or alcohol MEDICATIONS: The patients list has been reconciled by our clinical pharmacist in the EMR. I have reviewed the list and ordered appropriate medicines. PHYSICAL EXAMINATION: Vital Signs: Her highest temperature early this morning was at 37.7. This evening she has developed a temperature 38.4 degrees. Other vital signs are stable Premises Technician: Sinus rhythm Examination: General: alert, oriented, good mentation During my 1st visit with the patient she was in extreme pain which again she described as a diffuse crampy abdominal pain but notably worse across the lower abdomen. After some pain medicine and institution of other treatments she is now much more comfortable and much more relaxed Skin: warm, dry, good color, no rash HEENT: normal Neck: no mass or jvd Resps: relaxed Lungs: clear breath sounds Heart: regular, no murmur Abdomen: soft, mildly distended, diffusely tender without rebound or guarding, most notably tender in the suprapubic area, bowel sounds are quite infrequent and quiet, no mass or palpable hernia Upper Extremities: normal Lower Extremities: no edema, warm No Bleeding or bruising Neurologic: normal speech/language, normal occupational health professional, no focal weakness IV site: looks normal [place]ORATORY [place]: [place] [address] which is up from 12,000 thousand yesterday in the ER and notably it was approximately 10,000 last week at the previous hospitalization Metabolic panel is unremarkable RADIOLOGY STUDIES: I did review her CT images from her ER visit yesterday with Dr. Canales of Radiology. Her colon is certainly full of stool from the cecum to the rectum. In addition there is some mild fluid distension of small bowel in several segments of the bowel but there is not a pattern that would suggest a transition point or obstruction. Notably however I also notice some significant areas of inflammation around diverticuli in the distal sigmoid colon. There is no abscess or free air. I subsequently reviewed her CT with Dr. Canales of Radiology and he agrees that there is some evidence to suggest diverticulitis. ASSESSMENT: 1- acute diverticulitis with severe pain but no evidence of perforation or abscess 2- severe constipation. This may be adding to her discomfort, question whether it is caused by the diverticulitis 3- known history of diverticulosis based on colonoscopy, last study Greater than 20 years ago 4- new diagnosis of atrial fibrillation was made last week, currently unable to take her anticoagulant orally so will need to give parenterally 5- question of ventricular tachycardia last week, unable to take her sotalol now , will review with Cardiology and see what recommendations they have for current management I have discussed all the above in detail with the patient and her at the bedside over period of 3 different visits. They understand the diagnoses and the treatment recommendations and are in agreement. PLANS: -inpatient admission hospital -IV hydration, NPO -IV antibiotics have been started to cover bowel purnima -avoiding Levaquin for now because of her recent ventricular tachycardia -pain management -will not give any laxative here enemas at this point until we get diverticulitis quite a down; she will eventually need management of the constipation -if she recovers with a conservative course of therapy, would recommend colonoscopy in 6-8 weeks to review for any other possible pathology -if she does not recover well will consider repeating CT scan and determine what other therapy would be indicated I have reviewed the patient's case in detail with Dr. Rupert Canales I have reviewed the patient's past medical records as part of this assessment, including previous hospital admission records and ER visit records, radiology images
[2017-07-14] MEDS: prednisoLONE ACET 1% 5 ML OPHT.BTL LEFTEYE SCH ×2 (17:55→17:59)
--- NOTE | 2017-07-14 18:34 | PDMN ---
Medical Necessity Medical necessity: C/M review: Patient meets INPT criteria under MCG M-150 Divertivculitis, acute: Acute and persistent - diverticulitis, severe constipation from cecum to rectum (on CT 07/13/2017), severe abdominal pain, inability to take oral anticoagulation or oral Sotalol, 86% RA sat, requiring planned Cardiology consult, ongoing NPO, IV NS 75 ml/hr. infusion, IV Zosyn Q 6 hrs., subcutaneous Lovenox BID, IV Morphine and IV Zofran as needed, pulse oximetry, cardiac monitoring, supplemental O2, acute inpt PT/OT, comorbid several bouts of nausea/vomiting prior to this admission, ED visit 07/13/2017 for dx constipation, newly diagnosed atrial fibrillation last week, question of possible ventricular tachycardia. MD anticipaters > 2 MN LOS for ongoing med nec for eval and TX of above. Patient is Medicare Advantage which follows guidelines CMS puts forth.
[2017-07-15] MEDS: PIPERACILLIN/TAZO 3.375 GM/DEX 50 ML IV SCH ×5 (00:01→23:05)
[2017-07-15 04:59] LABS: PLATELET COUNT 222 10^3/uL (150-400)
[2017-07-15] MEDS: NS 1,000 ML IV SCH (05:56)
[2017-07-15] MEDS: ENOXAPARIN 60 MG/0.6 ML SYR SC SCH ×2 (09:42→20:13)
[2017-07-15] MEDS: prednisoLONE ACET 1% 5 ML OPHT.BTL LEFTEYE SCH ×3 (09:43→20:12)
--- NOTE | 2017-07-15 12:40 | HOSPPROG ---
Hospitalist Progress Note Assessment/Plan: DIAGNOSES: # acute diverticulitis with severe pain but no evidence of perforation or abscess # severe constipation. This may be adding to her discomfort, question whether it is caused by the diverticulitis # known history of diverticulosis based on colonoscopy, last study Greater than 20 years ago # acute encephalopathy with hallucinations caused by her a febrile illness and pain medicines (new problem today requiring change in management) # new diagnosis of atrial fibrillation was made last week, currently unable to take her anticoagulant orally so will need to give parenterally # question of ventricular tachycardia last week, unable to take her sotalol now PLANS: -continue current antibiotics -allow small volumes of clear liquids as tolerated today -again will not try any bowel evacuation until diverticulitis is notably better -will try to minimize narcotic and other MECHANICAL FITTER side effect medications within the balance of acceptable pain management; can use Toradol if necessary -continue cardiac monitoring -continue Lovenox until she is able to effectively take Eliquis again for her AFib -I reviewed her questionable V-tach history in detail with Dr. Garcia today. As this was nonsustained and she was not having syncopes or heart failure and had a good echocardiogram, will keep her on heart monitor but not use any antiarrhythmic medications. Should she have any and unstable rhythms we can give her amiodarone SUBJECTIVE: Pain is notably better today and she is not having any fever symptoms, no longer having any nausea or vomiting No bowel movement Has had some brief periods of visual hallucinations but has not otherwise been confused or agitated, no auditory hallucinations OBJECTIVE Vitals reviewed: Some low-grade fever but notably lower than yesterday so far, vitals otherwise stable Pairer, my review: All sinus rhythm Exam: alert oriented, overall looks much more relaxed and comfortable than yesterday skin warm dry color ok resps not labored lungs clear BSs heart regular abd soft still some mild distension, and some lower abdominal tenderness in the mid and right but no guarding or rebound, seems much less tender than yesterday limbs warm, no edema iv site ok Laboratory data: White blood cell count notably better today, otherwise CBC mostly stable, slight dilutional anemia Metabolic panel normal Objective: Vital Signs Temp Pulse Resp BP Pulse Ox 37.9 C 79 20 121/68 H 92 07/15/17 08:00 07/15/17 08:00 07/15/17 08:00 07/15/17 08:00 07/15/17 08:00 Laboratory Results 07/15/17 03:55 07/15/17 03:55 07/14/17 07/15/17 07/16/17 06:59 06:59 06:59 Intake Total 848 Output Total 525 Balance 323 - Time Spent With Patient Time Spent with Patient: greater than 35 minutes Time Spent with Patient: Greater than 35 minutes spent on this patients care, greater than 50% of time spent counseling, educating, and coordinating care regarding the above mentioned plan. ICD10 Worksheet Patient Problems: Problems Problem Status Onset Abdominal pain Acute Chest pain Acute Paroxysmal SVT (supraventricular tachycardia) Acute Paroxysmal VT Acute
--- NOTE | 2017-07-15 14:50 | ASMTCMCOM ---
CM Note CM Note Notes: Pt currently on IVF, IV ABX for diverticulitis and conservative treatment for constipation. No surgery planned at this time. Anticipate d/c with no CM needs but will continue to follow for any change in needs. Date Signed: 07/15/2017 02:49 PM Electronically Signed By:CHAR Singer
[2017-07-15] MEDS ORDERED: METOPROLOL TARTRATE 5 MG/5 ML INJ ONE (19:10)
--- NOTE | 2017-07-15 19:17 | HOSPPROG ---
Hospitalist Progress Note Assessment/Plan: 1899: notified by RN that pt is in SVT w/ HR >150s. RN said that pt unable to take antiarrhythmic meds bc her diet is "clear liquids , but no po meds." Chart review revealed newly Dx'd AF/AFlutter. Also had SVT and stable VT on recent admission. Saw and examined pt. She appeared stable. VS- 150s-160 initially. BP 140/97. Gen: alert, fatigued appearing elderly F in no AD. CV: tachy rate, irreg rhythm. Radial pulse inconsistent w/ HR. Resp: CTAB no RRW. Telemetry: narrow complex QRS, rapid rate, irregular rhythm. A/P: irregular narrow complex tachyarrhythmia c/w AF RVR. Gave metoprolol 5mg IVP x 3 doses to slow down HR which was unsuccessful -- lowered HR down to 140s. Called on-call Wax Bleacher Dr. Garcia who recommends starting diltiazem drip. Starting diltiazem drip tonight. Ordering EKG for AM. Consider to restart cardiac meds in the AM if pt tolerating diet and no QT prolongation. Objective: Vital Signs Temp Pulse Resp BP Pulse Ox 36.6 C 94 20 138/73 H 89 L 07/15/17 15:37 07/15/17 15:37 07/15/17 15:37 07/15/17 15:37 07/15/17 15:37 Laboratory Results 07/15/17 03:55 07/15/17 03:55 07/14/17 07/15/17 07/16/17 05:59 05:59 05:59 Intake Total 848 1224 Output Total 525 350 Balance 323 874 ICD10 Worksheet Patient Problems: Problems Problem Status Onset Abdominal pain Acute Chest pain Acute Paroxysmal SVT (supraventricular tachycardia) Acute Paroxysmal VT Acute
[2017-07-15] MEDS: METOPROLOL TARTRATE 5 MG/5 ML INJ IVP PRN ×2 (19:25→19:59)
[2017-07-15] MEDS ORDERED: METOPROLOL TARTRATE 5 MG/5 ML INJ IVP SCH (19:30)
[2017-07-15] MEDS ORDERED: DILTIAZEM 125 MG in D5W 125 ML IV SCH ×2 (20:30→21:00)
[2017-07-15] MEDS: DILTIAZEM HCL/D5W 125 ML IV SCH (20:55)
[2017-07-15] MEDS: PROMETHAZINE HCL 25 MG/ML INJ IVP PRN (22:07)
[2017-07-16] MEDS: PIPERACILLIN/TAZO 3.375 GM/DEX 50 ML IV SCH ×4 (05:41→23:39)
[2017-07-16] MEDS ORDERED: SOTALOL HCL 80 MG TAB PO SCH (06:30)
[2017-07-16] MEDS: DILTIAZEM HCL/D5W 125 ML IV SCH (07:09)
[2017-07-16] MEDS: PROMETHAZINE HCL 25 MG/ML INJ IVP PRN (07:28)
[2017-07-16] MEDS: ENOXAPARIN 60 MG/0.6 ML SYR SC SCH ×2 (07:46→20:57)
[2017-07-16] MEDS: prednisoLONE ACET 1% 5 ML OPHT.BTL LEFTEYE SCH ×2 (08:09→20:56)
--- NOTE | 2017-07-16 10:24 | HOSPPROG ---
Hospitalist Progress Note Assessment/Plan: CRITICAL CARE NOTE: > 105 MINS OF CRITICAL CARE TIME OVERALL TODAY I was called to see the patient this morning because of significant increase in oxygen needs. She had been doing fine on a couple L of nasal cannula through the night but this morning has now needed 15 L by non-rebreather mask for oxygenation. Notably the patient did have recurrence of her atrial fibrillation overnight and initially had fast heart rates but was started on some metoprolol and diltiazem is now rate controlled. Her blood pressures have remained good though her respiratory rate is a bit faster. As I visit the patient this morning she does notice that it is harder to take a deep breath and feels like her abdomen is preventing her from taking deep breath. There is some increased pain in her belly and some fullness to her belly that her worse than yesterday. The pain is now more diffuse than it was yesterday but she still has predominantly right lower quadrant and suprapubic pain. She denies having any pleuritic pain and she is on anticoagulants. There is no pain or swelling in her legs that she notices. At 1 point she thought she may have noticed some pressure in her chest this morning. This is not present at this time. She has not been having fever symptoms nausea or vomiting. No other new symptoms See examination and other data below DIAGNOSES: # free air under diaphragm, strongly suspect acute bowel perforation # acute hypoxemic respiratory failure appears most likely due to her distended painful abdomen with elevated diaphragms and bilateral atelectasis # her atrial fibrillation has recurred overnight requiring rate control which we are accomplishing without hypotension so far, and without heart failure # acute diverticulitis is the presumed cause of her acute abdominal presentation though this is a presumptive diagnosis; # severe constipation. This may be adding to her discomfort, question whether it is caused by the diverticulitis # known history of diverticulosis based on colonoscopy, last study Greater than 20 years ago # acute encephalopathy with hallucinations caused by her a febrile illness and pain medicines * This is not recurred today # new diagnosis of atrial fibrillation was made last week, currently unable to take her anticoagulant orally so will need to give parenterally # question of ventricular tachycardia last week; I reviewed her chart in detail with Dr. Heri Garcia from the previous admission where there had been a question of V-tach. We have no actual documentation of the episode of nonsustained V-tach and did occur during her 1st ever episode of AFib while the AFib was running rapid. Would need to question whether she actually was having some rate-related aberrancy or other cause of what might have looked like V- tach. Of note at that time her echocardiogram showed 75-80% EF with no wall motion abnormalities, [id number] MR and moderate TR but no other concerning changes. She has no history of angina or coronary disease. I reviewed her situation in detail with Dr. Kem chávez and he will be visiting her just now She will need to go to the operating room today for correction of her acute abdominal issue which is presumably a bowel perforation. At this point the patient has stable hemodynamics and despite needing a lot of oxygen is getting by at think from a respiratory standpoint but may need some assistance with BiPAP if her pH and pCO2 are off. Anticipate that she will likely need ICU stay after surgery and will contact the ICU charge nurse PLANS: -continue current antibiotics -NPO -stat surgical consult is in process -ABG CBC Chem panels type and cross and troponin are all ordered stent pending -continue diltiazem drip, follow blood pressures very closely -continue cardiac monitoring -hold Lovenox for now -I reviewed her questionable V-tach history in detail with Dr. Garcia today. Not really certain if this was actual 4 beat run of V-tach or if this was just some rate-related aberrancy during her rapid AFib in the ER last week. As this was nonsustained and she was not having syncopes or heart failure and had a good echocardiogram, will keep her on heart monitor but not use any antiarrhythmic medications. Should she have any and unstable rhythms we can give her amiodarone SUBJECTIVE: See above Notably she has not had any more hallucinations since yesterday morning OBJECTIVE Vitals reviewed: Still tachycardic and irregular with her heart rate but much better controlled than last night, blood pressures are good, respirations a little bit rapid, no fever Early Childhood Director, my review: Rapid atrial fibrillation will as high as 170s during the night but now in the [address] range on diltiazem Exam: alert oriented, overall looks reasonably relaxed but is using non-rebreather mask and more tachypneic than yesterday skin warm dry color ok, no cyanosis or jaundice resps mildly labored lungs somewhat diminished breath sounds with minimal inferior bilateral crackles and a smaller appearing respiratory volume than yesterday heart rapid and irregular abd more distended and not is soft, a appears to have some mild rebound, tender throughout her belly but again the tenderness is worst at the suprapubic and right lower quadrant limbs warm, no edema iv site ok Laboratory data: I have ordered blood gas CBC Chem panels INR troponin and type and cross also been and done stat all pending I ordered a portable chest x-ray which was done and I reviewed at the bedside on the portable machine; obvious large amount of free air under the diaphragm with elevated left and right hemidiaphragm and bibasilar atelectasis Objective: Vital Signs Temp Pulse Resp BP Pulse Ox 37.3 C 110 H 18 119/80 90 L 07/16/17 07:19 07/16/17 08:15 07/16/17 08:15 07/16/17 08:15 07/16/17 08:15 Laboratory Results 07/15/17 03:55 07/15/17 03:55 07/15/17 07/16/17 07/17/17 06:59 06:59 06:59 Intake Total 848 2957 Output Total 525 875 Balance 323 2082 ICD10 Worksheet Patient Problems: Problems Problem Status Onset Abdominal pain Acute Chest pain Acute Paroxysmal SVT (supraventricular tachycardia) Acute Paroxysmal VT Acute
[2017-07-16] MEDS: NS 1,000 ML IV SCH (10:38)
--- NOTE | 2017-07-16 10:57 | CPEKG ---
Heart Rate: 114 RR Interval: 526 QRSD Interval: 88 QT Interval: 332 QTC Interval: 458 QRS Mobile: 44 T Wave Mobile: -37 EKG Severity - ABNORMAL ECG - EKG Impression: ATRIAL FIBRILLATION, V-RATE 82-155 EKG Impression: BORDERLINE T ABNORMALITIES, DIFFUSE LEADS EKG Impression: ATRIAL FIBRILLATION IS NEW IN COMPARISON TO PRIOR Electronically Signed By: Real Mcelroy 17-Jul-2017 08:21:15
--- NOTE | 2017-07-16 11:15 | GCON ---
[f rep st] CONSULTATION DATE OF CONSULTATION: 07/16/2017 CHIEF COMPLAINT: Intraabdominal free air. HISTORY OF PRESENT ILLNESS: This is a 71-year-old female admitted to the medical service now since the . Briefly, the patient presented the previous day complaining of abdominal pain. CT scan was performed on July 13, which showed an extensive amount of colonic stool, but was otherwise unremarkable and had also had some small amount of small bowel dilatation, but was negative for any other acute findings. In any rate, the patient was subsequently discharged home, only to present back the following morning complaining of persistent abdominal pain. She was subsequently admitted to the medical service and has been on that service since that time, she states at that time the pain was lower in her pelvis, left greater than right. At the time of admission, her white blood cell count was elevated and she was subsequently placed on empiric antibiotics for possible diverticulitis. It was also noted at admission that she was back in atrial fibrillation and has been on IV anticoagulants and a diltiazem drip for rate control since that time. On my examination, she is tachycardic. She is in a moderate amount of distress, complaining of abdominal pain now, right greater than left. She otherwise states that she feels well. She has been persistently nauseated and continues to vomit. She has also been febrile. PAST MEDICAL HISTORY: Atrial fibrillation, hyperlipidemia, osteoarthritis. PAST SURGICAL HISTORY: Appendectomy and tubal ligation. FAMILY HISTORY: Noncontributory. SOCIAL HISTORY: Denies illicit drug use. Is . Her , John, is at the bedside. MEDICATIONS: Current medications reviewed. She received Lovenox 60 mg this morning at 9, is also currently on diltiazem drip for a-fib rate control and Zosyn for empiric diverticulitis coverage. ALLERGIES: None. REVIEW OF SYSTEMS: A full 10-point review was performed. PHYSICAL EXAM: VITAL SIGNS: Temperature 37.3, blood pressure 119/80, heart rate 110, and she is 90% on 8 L O2. CONSTITUTIONAL: She is in a mild amount of distress and appears uncomfortable. EYES: Her pupils are equal, round, and reactive to light and accommodation. Her extraocular movements are intact. EARS, NOSE, MOUTH, THROAT: Dry mucous membranes. Normal hearing. CARDIOVASCULAR: She has an irregularly irregular rhythm with an elevated rate. No murmurs. RESPIRATORY: She is in a mild amount of respiratory distress. No rales or rhonchi. She is using accessory muscles to breathe. GI: Her abdomen is distended. It is tender to palpation with rebound tenderness. SKIN : Warm. There is a small rash in the inferior portion of her right abdomen and bruising consistent with her Lovenox injections. MUSCULOSKELETAL: Full strength, no tenderness, normal joint range of motion. NEUROLOGIC: Alert and oriented x3. Cranial nerves 2-12 intact. No weakness. No numbness. PSYCH: She is interacting appropriately. She is not anxious or encephalopathic. LYMPH , HEME, IMMUNOLOGIC: No appreciable supraclavicular or groin lymphadenopathy appreciated. LABS: White blood cell count 9, was 14 yesterday, H and H low at 11.6 and 34.9. Platelets are 222. Chemistry is largely unremarkable. CT scan performed on the first, the images of which were personally reviewed, show moderate amount of stool throughout the colon. A couple of distended small bowel loops. No intraabdominal free fluid or free air. Chest film, also personally reviewed, performed today shows a very large amount of pneumoperitoneum. ASSESSMENT AND PLAN: 71-year-old female with acute perforated viscus of unknown origin. I discussed my findings on both the CT scan and physical exam with the patient. It is unclear where her perforation is coming from, more than likely colonic in nature given the significant amount of colonic stool burden. At any rate, the patient requires urgent celiotomy. I discussed the risks, benefits, and alternatives with her including bleeding given the fact that she received 60 mg of Lovenox and is on that twice a day and has been for some time, as well as damage to surrounding organs, abscess, and need for an ileostomy or colostomy depending on what I find. She is in agreement and wishes to proceed. We will plan to proceed urgently to the operating room for exploration. /[id number]/MODL MTDD
[2017-07-16 11:18] LABS: PLATELET COUNT 234 10^3/uL (150-400)
[2017-07-16] MEDS ORDERED: BUPIVACAINE 0.25% 30 ML SDV ONE ×2 (11:31→11:35)
[2017-07-16 11:34] LABS: INR 1.24 (0.83-1.16); PROTIME(PATIENT) 15.8 SEC (12.0-15.0)
--- NOTE | 2017-07-16 11:46 | PDANEPAE ---
ANE History of Present Illness free air s/f exp lap ANE Past Medical History - Cardiovascular History Hx Hypertension: Yes Hx Arrhythmias: Yes Hx Palpitations: Yes Cardiovascular History Comment: a fib, ?v-tach. good EF. dr. shen note reviewed in detail - Pulmonary History Hx Oxygen in Use at Home: No Hx Sleep Apnea: No - Endocrine History Hx Diabetes: No Endocrine History Comment: dyslipidemia - GI History Hx Gastrointestinal Disorders: Yes Gastrointestinal History Comment: diverticulitis, now with suspected perforation - Chronic Pain History Chronic Pain: No ANE Review of Systems Review of Systems: - Exercise capacity Exercise capacity: <4 METS ANE Patient History - Allergies Allergies/Adverse Reactions: No Known Allergies Allergy (Verified 07/14/17 07:03) - Home Medications Home medications: home medication list seen and reviewed Home Medications: Lisinopril [Zestril 40 mg (*)] 40 mg PO DAILY@30 07/02/13 [Last Taken 07/13/17 ] Simvastatin [Zocor 20 mg] 20 mg PO DAILY@18307/02/13 [Last Taken 07/13/17] amLODIPine BESYLATE [Norvasc 5 mg (*)] 5 mg PO DAILY@30 07/02/13 [Last Taken 07/13/17] Hydrochlorothiazide 12.5 mg PO DAILY@30 06/29/17 [Last Taken 07/13/17] prednisoLONE ACET 1% [Pred Forte 1% (*)] 1 drops LEFTEYE BID 06/29/17 [Last Taken 07/14/17] Apixaban [Eliquis] 5 mg PO BID@0630,1830 07/13/17 [Last Taken 07/13/17 18:30] Sotalol HCl [Betapace 80 MG (*)] 80 mg PO BID@0630,1830 07/13/17 [Last Taken 06/01 18:30] - NPO status NPO Status: no food or drink >8 hours - Anes Hx Anes Hx: no prior problems - Smoking Hx Smoking Status: Never smoked - Alcohol Use Alcohol Use: Rarely ANE Labs/Vital Signs - Labs Result Diagrams: 07/15/17 03:55 07/15/17 03:55 - Vital Signs Blood Pressure: 119/80 Heart Rate: 110 Respiratory Rate: 18 O2 Sat (%): 90 Height: 154.94 cm Weight: 61.2 kg ANE Physical Exam - Airway Neck exam: FROM Mallampati Score: Class 2 Mouth exam: normal dental/mouth exam - Pulmonary Pulmonary: expiratory wheeze, respiratory distress - Cardiovascular Cardiovascular: no murmur, rub, or gallop, irregularly irregular - ASA Status ASA Status: III, E ANE Anesthesia Plan Anesthesia Plan: general endotracheal anesthesia Lines/Monitors: arterial line (+/- a-line)
--- NOTE | 2017-07-16 11:48 | PDHPUP ---
History & Physical Update H&P update statement: This history and physical update is based on an assessment of the patient which was completed after admission or registration (within 24 hours), but prior to the surgery/procedure. H&P update: H&P reviewed & patient examined, no change in patient's condition since H&P completed
[2017-07-16] MEDS ORDERED: PROPOFOL/EMULSION 500 MG/50 ML BOTTLE IV ONE (11:51)
[2017-07-16] MEDS ORDERED: fentaNYL 100 MCG/2 ML INJ ONE ×2 (11:51→15:09)
[2017-07-16] MEDS ORDERED: ROCURONIUM 50 MG/5 ML VIAL ONE (11:52)
[2017-07-16] MEDS ORDERED: DEXAMETHASONE 4 MG/ML VIAL ONE (11:52)
[2017-07-16] MEDS ORDERED: LIDOCAINE 2% 100 MG/5 ML SYR ONE (11:52)
[2017-07-16] MEDS ORDERED: ONDANSETRON 4 MG/2 ML VIAL ONE (11:52)
[2017-07-16] MEDS ORDERED: PHENYLEPHRINE HCL 100 MCG/ML SYR ONE (11:52)
[2017-07-16] MEDS ORDERED: LIDOCAINE HCL 160 MG/4 ML LTA KIT TP ONE (11:54)
[2017-07-16] MEDS ORDERED: PHENYLEPHRINE 10 MG/ML SDV ONE (12:15)
[2017-07-16] MEDS ORDERED: LABETALOL HCL 5 MG/ML 20 ML MDV ONE (12:39)
[2017-07-16] MEDS ORDERED: ACETAMINOPHEN 500 MG TAB PO PRN (13:32)
[2017-07-16] MEDS ORDERED: PROMETHAZINE HCL 25 MG/ML INJ IVP PRN (13:32)
[2017-07-16] MEDS ORDERED: ONDANSETRON 4 MG/2 ML VIAL IVP PRN (13:32)
[2017-07-16] MEDS ORDERED: MEPERIDINE 25 MG/ML SYR IVP PRN (13:32)
[2017-07-16] MEDS ORDERED: LR 500 ML IV PRN (13:32)
[2017-07-16] MEDS ORDERED: OXYCODONE/APAP 5/325 TAB PO PRN (13:32)
[2017-07-16] MEDS ORDERED: METOCLOPRAMIDE 10 MG/2 ML VIAL IVP PRN (13:32)
[2017-07-16] MEDS ORDERED: DEXAMETHASONE 4 MG/ML VIAL IVP PRN (13:32)
[2017-07-16] MEDS ORDERED: ALBUTEROL 3 ML DEYVIAL IH PRN (13:32)
[2017-07-16] MEDS ORDERED: NALOXONE HCL 0.4 MG/ML INJ IVP PRN (13:32)
[2017-07-16] MEDS ORDERED: PHENYLEPHRINE HCL 100 MCG/ML SYR IVP PRN (13:32)
[2017-07-16] MEDS ORDERED: LABETALOL HCL 5 MG/ML 20 ML MDV IVP PRN (13:32)
[2017-07-16] MEDS ORDERED: HYDROCODONE/APAP 5/325 TAB PO PRN (13:32)
[2017-07-16] MEDS ORDERED: PROPOFOL 200 MG/20 ML VIAL ONE (14:07)
[2017-07-16] MEDS ORDERED: SUGAMMADEX SODIUM 200 MG/2 ML VIAL IVP ONE (14:12)
--- NOTE | 2017-07-16 15:08 | POSTOPPROG ---
Post Op Note Date of Operation: 07/16/17 Surgeon: Kem Campa Anesthesiologist: Freddy Anesthesia: GET(General Endotracheal) Pre-op Diagnosis: perforated Viscus, intra-abdominal free air Post-op Diagnosis: Hinchey grade 3 diverticulitis, free air Procedure: Ex-lap, sigmoid colectomy with Trent's pouch, washout Findings: diseased sigmoid, pus in all 4 quadrants Inf/Abcess present in the surg proc area at time of surgery?: Yes Depth: Organ Space EBL: Minimal Total fluids administered: 3000cc NS washout Drains: Mikhail Fisher Specimen(s): sigmoid colon
[2017-07-16] MEDS: fentaNYL 100 MCG/2 ML INJ IVP PRN ×2 (15:11→15:23)
[2017-07-16] MEDS: LR 1,000 ML IV SCH (17:36)
--- NOTE | 2017-07-16 19:17 | POSTANESTH ---
Post Anesthetic Evaluation Cardiovascular Status: Normal, Stable Respiratory Status: Normal, Stable, Tx Decrease in SpO2 Level of Consciousness/Mental Status: Can Participate in Eval Pain Control: Adequate, Prn Tx Ordered Nausea/Vomiting Control: Adequate, Prn Tx Ordered Complications Possibly Related to Anesthesia: None Noted
--- NOTE | 2017-07-17 01:48 | GOP ---
[f rep st] OPERATIVE REPORT DATE OF OPERATION: 07/16/2017 SURGEON: Kem Campa MD WORKGROUP LEADER: None. ANESTHESIA: General endotracheal. ANESTHESIOLOGIST: Zach Hayes MD. PREOPERATIVE DIAGNOSIS: Perforated viscus with intraabdominal free air. POSTOPERATIVE DIAGNOSIS: Hinchey grade 3 diverticulitis with intraabdominal free pus and air. PROCEDURE PERFORMED: 1. Exploratory laparotomy. 2. Sigmoid colectomy. 3. Mobilization of splenic flexure. 4. End colostomy with Trent's pouch. FINDINGS: Gross purulence noted in all 4 quadrants, sigmoid colon thick and edematous with adherent omentum. Remainder of the abdominal viscera unremarkable. SPECIMENS: Sigmoid colon. ESTIMATED BLOOD LOSS: 20 cc. DESCRIPTION OF PROCEDURE: The patient was greeted in the preoperative suite. Risks and benefits were concerned. She was then brought back to the operative suite and placed on the OR table in supine position. After all anesthesia machines including SCDs were on and functioning, a [employer] time-out was performed. After successful induction of general anesthesia, the patient's abdomen was prepped and draped in typical sterile fashion. The patient was also placed in low lithotomy position with all pressure points appropriately padded, and a Arreguin catheter was placed. I commenced the surgery by making a generous midline incision. I carried it down to the subcutaneous tissue, and upon entering the fascia, a large whoosh of air was identified. Just beneath this, purulent fluid was identified as well. I evacuated the fluid and took cultures. I then began to systematically run the bowel. I started at the terminal ileum and ran this proximally to the ligament of Treitz and found no pathology within the small bowel. I then ran the colon from the cecum through the ascending, hepatic flexure, transverse, splenic flexure, descending, and sigmoid colon. I found no significant pathology with the exception of the sigmoid colon which was very densely adherent to the left pelvic sidewall and very firm to the touch. It also had a significant portion of the omentum densely adherent to it. I mobilized the omentum off this. I initially found no perforation site other than a lot of purulence and dense adhesions around the sigmoid colon. I mobilized the right colon to ensure that there was no cecal pathology. The patient had a previous appendectomy and had some scar tissue to this site, but the remainder of the colon and small bowel was unremarkable. I also systematically ran the stomach and proximal duodenum to the ligament of Treitz and again found no significant pathology. After I found no other pathology other than that identified in the sigmoid colon, I identified a site distally at the rectosigmoid junction and successfully divided the colon at this site. I then took the mesentery proximally to a site in the descending colon which was healthy as well. I then amputated and passed this off. Back table examination showed that there was a small perforation with feculent material extruding from it in the sigmoid colon. I then irrigated the patient's abdomen with 3 L sterile saline, noting clear effluent in the suction canister. I then mobilized the descending colon including the splenic flexure in preparation for my colostomy. I marked both ends of the rectal stump on either side with blue Prolene sutures. After sufficient mobilization of the descending colon, I placed a separate 19-Czech PANDA into the pelvis via a separate stab incision in the left lower quadrant. It was attached to the skin with a silk suture. After irrigation, gowns, gloves, and a sterile procedure kit were then brought in. Prior to closing, I chose a site in the rectus fascia and made a circumferential incision through this through which I brought out my end colostomy. I then closed the midline fascia with a # 1 PDS suture. I irrigated the subcutaneous tissue with saline. I closed the skin with cuca. I then matured my colostomy which everted well with interrupted 3-0 Vicryl stitches over which a two-piece ostomy appliance was placed. Digitization of the ostomy showed that it was widely patent and full of stool. Sterile dressings were placed. The patient was then extubated in the operative suite and taken to the PACU in satisfactory condition. DRAINS: 19-Czech channel drain into the pelvis. COUNTS: All counts were reported as correct x2. /[id number]/MODL MTDD
[2017-07-17 04:55] LABS: PLATELET COUNT 271 10^3/uL (150-400)
[2017-07-17] MEDS: PIPERACILLIN/TAZO 3.375 GM/DEX 50 ML IV SCH ×3 (05:25→16:51)
[2017-07-17] MEDS: LR 1,000 ML IV SCH ×2 (05:54→20:45)
[2017-07-17] MEDS: ENOXAPARIN 60 MG/0.6 ML SYR SC SCH ×2 (09:27→20:40)
[2017-07-17] MEDS: prednisoLONE ACET 1% 5 ML OPHT.BTL LEFTEYE SCH ×2 (09:48→20:46)
--- NOTE | 2017-07-17 11:04 | SOAPPROG ---
SOAP Progress Note Assessment/Plan: Assessment/Plan: - 71yo F s/p ex-lap, sigmoidectomy, end colostomy for perforated sigmoid diverticulitis (Hinchey 3) - VSS, HDS, afebrile - pain well controlled - abdomen is soft, appropriately tender. Ostomy is swollen but has sweat in the appliance. Incision covered with clean dressing - dc NGT, dc kim, ambulate, ok for sips - cont IV abx given gross contamination, cultures were taken intra-op 07/17/17 11:02 07/17/17 11:04 Subjective: feels well, breathing better. Just worked with therapy Objective: Vital Signs Temp Pulse Resp BP Pulse Ox 37.1 C 81 15 147/77 H 92 07/17/17 08:00 07/17/17 08:00 07/17/17 08:00 07/17/17 08:00 07/17/17 08:00 Microbiology 07/16/17 12:27 Gram Stain - Final Abdomen - Aspirate Laboratory Results 07/17/17 04:02 07/17/17 04:02 07/16/17 07/17/17 07/18/17 05:59 05:59 05:59 Intake Total 2957 3037 52 Output Total 875 1465 175 Balance 2082 1572 -123 PT 15.8 SEC (12.0-15.0) H 07/16/17 11:00 INR 1.24 (0.83-1.16) H 07/16/17 11:00 ICD10 Worksheet Patient Problems: Problems Problem Status Onset Abdominal pain Acute Chest pain Acute Paroxysmal SVT (supraventricular tachycardia) Acute Paroxysmal VT Acute
--- NOTE | 2017-07-17 17:23 | ASMTCMCOM ---
CM Note CM Note Notes: POD#1 s/p expl lap, sigmoidectomy and new colostomy. Pt lives at home w/. PT recommending HHC. Met w/pt to discuss. She is open to HHC; will benefit from home RN for new ostomy care/education. Pt is also open to PT at home but is not sure she will need it by the time she dc'd from hosp; will reassess this closer to dc. Pt 's will look into HHC agencies and let us know tomorrow which agency. CM will follow. Date Signed: 07/17/2017 05:23 PM Electronically Signed By:Lurdes Lewis RN
--- NOTE | 2017-07-17 17:29 | HOSPPROG ---
Hospitalist Progress Note Assessment/Plan: * Perforated diverticulitis s/p sigmoid colectomy - end colostomy with Mixon' s pouch -NGT out, taking sips * Peritonitis - gross pus contamination during OR -IV Zosyn * Acute respiratory failure - due to abdominal distention - improved * Afib -resume sotalol -watch daily EKG for QT prolongation with re-initiation -SQ Lovenox - back to Eliquis when taking PO * Metabolic encephalopathy - improved * HTN -holding home meds - resume when BP increases Subjective: Feeling well Objective: Vital Signs Temp Pulse Resp BP Pulse Ox 37.0 C 74 16 138/84 H 92 07/17/17 16:00 07/17/17 16:00 07/17/17 16:00 07/17/17 16:00 07/17/17 16:00 Microbiology 07/16/17 12:27 Gram Stain - Final Abdomen - Aspirate 07/16/17 12:27 Mycobacterial Smear (ALEXANDREA) - Final Abdomen - Aspirate Laboratory Results 07/17/17 04:02 07/17/17 04:02 07/16/17 07/17/17 07/18/17 05:59 05:59 05:59 Intake Total 2957 3037 936 Output Total 875 1465 445 Balance 2082 1572 491 PT 15.8 SEC (12.0-15.0) H 07/16/17 11:00 INR 1.24 (0.83-1.16) H 07/16/17 11:00 CXR viewed, my personal interpretation is - free air, possible CHF tele reviewed, now back to NSR - Physical Exam Constitutional: no apparent distress, appears nourished, not in pain Cardiovascular: regular rate and rhythym, no murmur, rub, or gallop Respiratory: no respiratory distress, no rales or rhonchi, clear to auscultation Gastrointestinal: normoactive bowel sounds, soft, non-tender abdomen, no palpable masses Skin: no rashes or abrasions, no fluctuance, no induration Neurologic: AAOx3, sensation intact bilaterally Psychiatric: interacting appropriately, not anxious, not encephalopathic, thought process linear ICD10 Worksheet Patient Problems: Problems Problem Status Onset Abdominal pain Acute Chest pain Acute Paroxysmal SVT (supraventricular tachycardia) Acute Paroxysmal VT Acute
[2017-07-17] MEDS: SOTALOL HCL 80 MG TAB PO SCH (20:40)
[2017-07-18] MEDS: PIPERACILLIN/TAZO 3.375 GM/DEX 50 ML IV SCH ×4 (00:32→17:53)
[2017-07-18 05:21] LABS: PLATELET COUNT 241 10^3/uL (150-400)
[2017-07-18] MEDS: ENOXAPARIN 60 MG/0.6 ML SYR SC SCH (08:12)
[2017-07-18] MEDS: SOTALOL HCL 80 MG TAB PO SCH ×2 (08:12→20:22)
[2017-07-18] MEDS: prednisoLONE ACET 1% 5 ML OPHT.BTL LEFTEYE SCH ×2 (08:13→08:29)
--- NOTE | 2017-07-18 09:18 | CPEKG ---
Heart Rate: 64 RR Interval: 938 P-R Interval: 144 QRSD Interval: 92 QT Interval: 440 QTC Interval: 454 P [place]: 46 QRS [place]: 77 T Wave [place]: 42 EKG Severity - ABNORMAL ECG - EKG Impression: SINUS RHYTHM EKG Impression: NORMAL SINUS RHYTHM HAS REPLACED ATRIAL FIBRILLATION Electronically Signed By: Real Mcelroy 19-Jul-2017 12:13:09
--- NOTE | 2017-07-18 10:16 | SOAPPROG ---
SOAP Progress Note Assessment/Plan: Assessment/Plan: - 71yo F s/p ex-lap, sigmoidectomy, end colostomy for perforated sigmoid diverticulitis (Hinchey 3) - VSS, HDS, afebrile - pain minimal - abdomen is soft, stoma is pink and swollen with sweat in the appliance. - tolerating sips, will adv to clears today - ok to shower, needs dressing replaced after shower 07/17/17 11:02 07/17/17 11:04 07/18/17 10:13 Subjective: voiding, walking, tolerating clears without issue Objective: Vital Signs Temp Pulse Resp BP Pulse Ox 36.8 C 67 20 144/72 H 90 L 07/18/17 07:32 07/18/17 07:32 07/18/17 07:32 07/18/17 07:32 07/18/17 07:32 Microbiology 07/16/17 12:27 Mycobacterial Smear (ALEXANDREA) - Final Abdomen - Aspirate 07/16/17 12:27 Gram Stain - Final Abdomen - Aspirate Laboratory Results 07/18/17 04:10 07/18/17 04:10 07/17/17 07/18/17 07/19/17 05:59 05:59 05:59 Intake Total 3037 2086 Output Total 1465 660 200 Balance 1572 1426 -200 PT 15.8 SEC (12.0-15.0) H 07/16/17 11:00 INR 1.24 (0.83-1.16) H 07/16/17 11:00 ICD10 Worksheet Patient Problems: Problems Problem Status Onset Abdominal pain Acute Chest pain Acute Paroxysmal SVT (supraventricular tachycardia) Acute Paroxysmal VT Acute
--- NOTE | 2017-07-18 13:49 | GCON ---
[f rep st] CONSULTATION DATE OF CONSULTATION: 07/18/2017 REFERRING PHYSICIAN: Savanah Garcia MD REASON FOR CONSULTATION: Perforated sigmoid diverticulitis with gross fecal contamination for further evaluation. CHIEF COMPLAINT: Abdominal pain. HISTORY OF PRESENT ILLNESS: This is a 71-year-old female with a past medical history significant for hypertension, dyslipidemia, who started to develop abdominal pain Monday night. She states that it got bad the next day , so she had gotten worse, so she came to the ER on where she had a CAT scan. CAT scan showed she had constipation. She was given an enema and then sent home, but by Monday, she continued to have worsening pain. She also vomited, and therefore, she came back. She denies any fevers or shaking chills. She continued to have worsening abdominal pain. A chest x-ray was done which showed air under the diaphragm. Surgery was consulted, and she was taken to the OR. In the OR, she was found to have a perforated sigmoid diverticulitis with gross pus in all 4 quadrants. Cultures were taken. 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 She was placed on Zosyn therapy and is maintained on that at present. She had an elevated white blood cell count on admission, which has sort of fluctuated during her course. She had a left shift, which has since resolved as of this morning. Her temperatures have been stable, and she is not febrile at present. She actually feels clinically better with far less abdominal pain overall. Infectious Disease is now consulted for evaluation and opinion. PAST MEDICAL HISTORY: Significant for hypertension, dyslipidemia, atrial fibrillation, and history of ventricular tachycardia. PAST SURGICAL HISTORY: Significant for appendectomy, tubal ligation. SOCIAL HISTORY: Nonsmoker. Drinks alcohol socially. Lives with her . ALLERGIES: No known drug allergies. FAMILY HISTORY: Significant for coronary artery disease. MEDICATIONS: As per JUL. REVIEW OF SYSTEMS: GENERAL: No fevers or shaking chills. HEENT: Head: No headaches. Eyes: No change in vision. ENT: No sore throat, difficulty swallowing, ear pain, or ear drainage. CARDIOVASCULAR: No chest pain or rapid heartbeat. RESPIRATORY: No shortness of breath. She has mild cough. No sputum production. ABDOMEN: As above. : No dysuria. MUSCULOSKELETAL: Denies any lower extremity edema or joint effusions or pain. SKIN: Denies any rashes. PHYSICAL EXAMINATION: VITAL SIGNS: Temperature current 37.0, pulse is 61, blood pressure 145/76, saturations are 90% on 1 L O2 via nasal cannula, respiratory rate of 16. GENERAL: She is resting in bed in no acute respiratory distress. Awake, alert, and oriented x3. HEENT. Head is normocephalic, atraumatic. Eyes without conjunctival injection or petechiae. Oropharynx is clear. No posterior erythema or thrush. CARDIOVASCULAR: S1, S2. Regular rate and rhythm. RESPIRATORY: Clear to auscultate bilaterally. No rhonchi or rales appreciated. ABDOMEN: Bowel sounds present. Mildly distended. Colostomy noted. Midline incision site covered with operative dressing. I did not take down. EXTREMITIES: Without joint effusions or lower extremity edema. SKIN: No obvious rashes. LABORATORY DATA: White blood cell count 10.8, hemoglobin 10.0, platelets are 241, neutrophil count of 69%. Sodium 141, potassium 3.8, chloride is 98, bicarb is 28, BUN is 25, creatinine is 0.5. LFTs done yesterday within the normal range. Cultures as stated above. Fungal cultures in progress. Negative AFB smear. ASSESSMENT: 1. Feculent peritonitis after perforated sigmoid diverticulitis, status post sigmoid colectomy and end colostomy. 2. Leukocytosis - multifactorial. PLAN: Patient is currently on Zosyn therapy, which I will continue for now for broad-spectrum empiric antimicrobial coverage given the above. Brief operative note shows gross contamination and pus in all 4 quadrants. Cultures at present just showing mixed intestinal purnima. Will add CRP to a.m. labs and see if this will be helpful to follow going forward. She will likely need at least 2 weeks of therapy, possibly longer if by chance she ends up developing an abscess. She may need followup imaging closer to the end of therapy given the above nature of presentation. Patient was not on antibiotics prior to coming into the hospital. She had a brief hospital stay in June for 3 days for cardiac issues. Upper GI perforations have a higher risk for concomitant involvement with Kierra compared to Lower GI perforations. Given that and that she has not had recent antibiotic exposure will hold off on antifungal coverage for now but will follow fungal cultures closely. I thank you very much for the opportunity to care for your patient in consultation. /[id number]/MODL MTDD
--- NOTE | 2017-07-18 15:41 | ASMTCMCOM ---
CM Note CM Note Notes: ID saw patient today and recommends 2 weeks of IV antibiotic therapy. I sent a referral to [facility], and [facility]adi will come speak with patient tomorrow about her insurance benefits. I also sent a referral to [facility] - patient will definitely need an RN and may have PT if she likes. Case Management will follow. Date Signed: 07/18/2017 03:40 PM Electronically Signed By:Farheen Whaley RN
--- NOTE | 2017-07-18 19:19 | HOSPPROG ---
Hospitalist Progress Note Assessment/Plan: * Perforated diverticulitis s/p sigmoid colectomy - end colostomy with Mixon' s pouch -clear liquids * Peritonitis - gross pus contamination during OR -IV Zosyn * Acute respiratory failure - due to abdominal distention - improved * Afib -resume sotalol -watch daily EKG for QT prolongation with re-initiation -back to Eliquis, taking PO * Metabolic encephalopathy - improved * HTN -resume meds when BP increases Subjective: No new complaints, tolerating clears. Objective: Vital Signs Temp Pulse Resp BP Pulse Ox 36.8 C 60 20 142/71 H 91 L 07/18/17 17:15 07/18/17 17:15 07/18/17 17:15 07/18/17 17:15 07/18/17 17:15 Microbiology 07/16/17 12:27 Gram Stain - Final Abdomen - Aspirate 07/16/17 12:27 Mycobacterial Smear (ALEXANDREA) - Final Abdomen - Aspirate Laboratory Results 07/18/17 04:10 07/18/17 04:10 07/17/17 07/18/17 07/19/17 05:59 05:59 05:59 Intake Total 3037 2086 1740 Output Total 7624 130 1322 Balance 1572 1426 700 PT 15.8 SEC (12.0-15.0) H 07/16/17 11:00 INR 1.24 (0.83-1.16) H 07/16/17 11:00 EKG viewed, my personal interpretation is - no QT prolongation tele reviewed - NSR - Physical Exam Constitutional: no apparent distress, appears nourished, not in pain Cardiovascular: regular rate and rhythym, no murmur, rub, or gallop Respiratory: no respiratory distress, no rales or rhonchi, clear to auscultation Gastrointestinal: normoactive bowel sounds, soft, non-tender abdomen, no palpable masses Skin: no rashes or abrasions, no fluctuance, no induration Neurologic: AAOx3, sensation intact bilaterally Psychiatric: interacting appropriately, not anxious, not encephalopathic, thought process linear ICD10 Worksheet Patient Problems: Problems Problem Status Onset Abdominal pain Acute Chest pain Acute Paroxysmal SVT (supraventricular tachycardia) Acute Paroxysmal VT Acute
[2017-07-19] MEDS: PIPERACILLIN/TAZO 3.375 GM/DEX 50 ML IV SCH ×2 (00:22→06:25)
[2017-07-19 05:09] LABS: PLATELET COUNT 272 10^3/uL (150-400)
[2017-07-19] MEDS: HYDROCHLOROTHIAZIDE 12.5 MG CAP PO SCH (06:25)
[2017-07-19] MEDS: amLODIPine BESYLATE 5 MG TAB PO SCH (06:25)
[2017-07-19] MEDS: LISINOPRIL 40 MG TAB PO SCH (06:25)
[2017-07-19] MEDS: APIXABAN 5 MG TAB PO SCH ×2 (06:25→17:55)
[2017-07-19] MEDS ORDERED: HYDROCHLOROTHIAZIDE 12.5 MG PO SCH (06:30)
[2017-07-19] MEDS: SOTALOL HCL 80 MG TAB PO SCH ×2 (09:14→20:23)
[2017-07-19] MEDS: prednisoLONE ACET 1% 5 ML OPHT.BTL LEFTEYE SCH (09:15)
[2017-07-19] MEDS: PIPERACILLIN/TAZO 4.5 GM/DEX 100 ML IV SCH ×2 (12:29→17:55)
--- NOTE | 2017-07-19 13:30 | PCMIDPN ---
Assessment/Plan: Assessment/Plan: 1. Feculent peritonitis secondary to perforated sigmoid diverticulitis: - s/p wash out, sigmoid colectomy and end colostomy -Cx now with PSa and GNR LF. still in progress. suseceptibilities pending -Fungal cx pending -Currnelty on zosyn therapy. -Mild leukocytosis persists but trending down. Continue to follow closely. -Culture results reviewed with patient -care coordinated with RODRIGUE Stoll zosyn 4.5gm q6- Subjective: afebrile. feels better. siting in chair. tolerated clear well. less abdominal pain overall. now with stool in colostomy bag. Denies sob, or other symptoms. Objective: Vital Signs Temp Pulse Resp BP Pulse Ox 37.1 C 57 L 12 150/79 H 90 L 07/19/17 11:55 07/19/17 11:55 07/19/17 11:55 07/19/17 11:55 07/19/17 11:55 Microbiology 07/16/17 12:27 Gram Stain - Final Abdomen - Aspirate 07/16/17 12:27 Mycobacterial Smear (ALEXANDREA) - Final Abdomen - Aspirate Laboratory Results 07/19/17 05:00 07/19/17 05:00 07/18/17 07/19/17 07/20/17 05:59 05:59 05:59 Intake Total 2086 2180 240 Output Total 660 1545 1440 Balance 1426 635 -1200 C-Reactive Protein 83.9 mg/L (<10.0) H 07/19/17 05:00 - Physical Exam General Appearance: alert, no apparent distress Respiratory: lungs clear Cardiac/Chest: regular rate, rhythm Extremities: No swelling Abdomen: normal bowel sounds, non-tender, soft, other (colostomy with stool noted) Skin: No erythema ICD10 Worksheet Patient Problems: Problems Problem Status Onset Abdominal pain Acute Chest pain Acute Paroxysmal SVT (supraventricular tachycardia) Acute Paroxysmal VT Acute
[2017-07-19] MEDS ORDERED: PROTOCOL POTASSIUM 1 DOSE MISC PRN (14:08)
[2017-07-19] MEDS ORDERED: PROTOCOL MAGNESIUM 1 DOSE IV PRN (14:08)
--- NOTE | 2017-07-19 14:08 | HOSPPROG ---
Hospitalist Progress Note Assessment/Plan: * Perforated diverticulitis s/p sigmoid colectomy - end colostomy with Mixon' s pouch -clear liquids -Diet per Surgery * Peritonitis - gross pus contamination during OR -culture c/w pseudomonas -IV Zosyn per ID * Acute respiratory failure - due to abdominal distention - resolved * Afib -resume sotalol -watch daily EKG for QT prolongation with re-initiation -back to Eliquis, taking PO * Metabolic encephalopathy - improved * HTN -tolerating home meds * Hypokalemia, start replacement protocol Plan: per above monitor HR and BP closely Zosyn PT/OT Subjective: pain is well controlled. HR ok. BP is ok. Objective: Vital Signs Temp Pulse Resp BP Pulse Ox 37.1 C 57 L 12 150/79 H 90 L 07/19/17 11:55 07/19/17 11:55 07/19/17 11:55 07/19/17 11:55 07/19/17 11:55 Microbiology 07/16/17 12:27 Gram Stain - Final Abdomen - Aspirate 07/16/17 12:27 Mycobacterial Smear (ALEXANDREA) - Final Abdomen - Aspirate Laboratory Results 07/19/17 05:00 07/19/17 05:00 07/18/17 07/19/17 07/20/17 05:59 05:59 05:59 Intake Total 2086 2180 240 Output Total 660 1545 1440 Balance 1426 635 -1200 PT 15.8 SEC (12.0-15.0) H 07/16/17 11:00 INR 1.24 (0.83-1.16) H 07/16/17 11:00 - Physical Exam Constitutional: no apparent distress Eyes: PERRL, EOMI Ears, Nose, Mouth, Throat: moist mucous membranes Cardiovascular: regular rate and rhythym, no murmur, rub, or gallop, No edema Respiratory: no respiratory distress, no rales or rhonchi, clear to auscultation Gastrointestinal: No distension Skin: warm Neurologic: AAOx3 Psychiatric: interacting appropriately, not anxious, not encephalopathic, thought process linear Lymph, Heme, Immunologic: No petechiae ICD10 Worksheet Patient Problems: Problems Problem Status Onset Abdominal pain Acute Chest pain Acute Paroxysmal SVT (supraventricular tachycardia) Acute Paroxysmal VT Acute
[2017-07-19] MEDS ORDERED: POTASSIUM CL 10 MEQ TAB PO ONE ×2 (15:03→18:00)
--- NOTE | 2017-07-19 16:09 | ASMTCMCOM ---
CM Note CM Note Notes: Pts case reviewed in morning rounds. Ingrid from [facility] met w/ pt to discuss cost. Pt will use [facility]. CM followed up w/ [facility]. [facility] is able to accept pt. CM met w/ pt and discussed d/c plans. Pt is agreeable to plan. CM to follow. Plan: ANTHONY, RN, PT with [facility] Date Signed: 07/19/2017 04:08 PM Electronically Signed By:REBECCA Menjivar
--- NOTE | 2017-07-19 17:48 | SOAPPROG ---
SOAP Progress Note Assessment/Plan: Assessment: 71yo F s/p ex-lap, sigmoidectomy, end colostomy for perforated sigmoid diverticulitis (Hinchey 3) S: Doing well. Pain is well controlled. Tolerating clears well. Eager to start eating. O: Alert Afebrile VSS No WOB Abdomen is soft, nontender. Stoma is pink with brown liquid stool in bag. Serosanguinous fluid in PANDA drain. +BS Plan: Advance diet as tolerated. Continue to monitor. 07/19/17 17:46 Objective: Vital Signs Temp Pulse Resp BP Pulse Ox 36.9 C 73 15 124/71 H 90 L 07/19/17 15:27 07/19/17 15:27 07/19/17 15:27 07/19/17 15:27 07/19/17 15:27 Microbiology 07/16/17 12:27 Mycobacterial Smear (ALEXANDREA) - Final Abdomen - Aspirate 07/16/17 12:27 Gram Stain - Final Abdomen - Aspirate Laboratory Results 07/19/17 05:00 07/19/17 05:00 07/18/17 07/19/17 07/20/17 05:59 05:59 05:59 Intake Total 2086 2180 680 Output Total 660 1545 2140 Balance 1426 635 -1460 PT 15.8 SEC (12.0-15.0) H 07/16/17 11:00 INR 1.24 (0.83-1.16) H 07/16/17 11:00 ICD10 Worksheet Patient Problems: Problems Problem Status Onset Abdominal pain Acute Chest pain Acute Paroxysmal SVT (supraventricular tachycardia) Acute Paroxysmal VT Acute
[2017-07-19] MEDS: ATORVASTATIN CALCIUM 10 MG TAB PO SCH (17:55)
[2017-07-19] MEDS ORDERED: NON-FORMULARY NEW DRUG (Simvastatin [Zocor 20 Mg] 20 MG) PO SCH (18:30)
[2017-07-19] MEDS: HYDROCODONE/APAP 5/325 TAB PO PRN (22:24)
[2017-07-20] MEDS: PIPERACILLIN/TAZO 4.5 GM/DEX 100 ML IV SCH ×5 (00:25→23:42)
[2017-07-20] MEDS: HYDROCODONE/APAP 5/325 TAB PO PRN ×4 (03:28→22:20)
[2017-07-20 05:00] LABS: PLATELET COUNT 326 10^3/uL (150-400)
[2017-07-20] MEDS: amLODIPine BESYLATE 5 MG TAB PO SCH (05:50)
[2017-07-20] MEDS: LISINOPRIL 40 MG TAB PO SCH (05:50)
[2017-07-20] MEDS: APIXABAN 5 MG TAB PO SCH ×2 (05:50→17:44)
[2017-07-20] MEDS: HYDROCHLOROTHIAZIDE 12.5 MG CAP PO SCH (05:51)
[2017-07-20] MEDS ORDERED: POTASSIUM CL 10 MEQ TAB PO ONE (08:03)
[2017-07-20] MEDS: SOTALOL HCL 80 MG TAB PO SCH ×2 (08:08→20:56)
[2017-07-20] MEDS: prednisoLONE ACET 1% 5 ML OPHT.BTL LEFTEYE SCH (08:33)
--- NOTE | 2017-07-20 08:43 | PCMIDPN ---
Assessment/Plan: Polymicrobial peritonitis due to perf diverticulitis s/p Ex-lap, sigmoid colectomy with Trent's pouch - doing well, ate full diet for first time this AM, stool in ostomy bag, bowel sound present, AF. Patient looks remarkably well --continue high dose Zosyn for polymicrobial infection including PsA. --patient aware that completing antibiotic therapy may involve IV abx/PICC --currently not on fungal coverage GPC on gram stain that are not growing out could also reflect tobi and in this high risk case would add micafungin for antifungal coverage while await maturity of cultures. micro peritoneal fluid: gram stain : 3+GPC, 2+ GPR, 1+ GNR --> cx on GNR growing so far da silva-S PsA and Ecoli sensi pending peritoneal fungal cx: pending Subjective: patient feeling well, minimal abdominal pain ate regular diet this AM without problems. Objective: Vital Signs Temp Pulse Resp BP Pulse Ox 36.8 C 62 18 159/79 H 95 07/20/17 07:15 07/20/17 08:08 07/20/17 07:15 07/20/17 08:08 07/20/17 07:15 Microbiology 07/16/17 12:27 Mycobacterial Smear (ALEXANDREA) - Final Abdomen - Aspirate 07/16/17 12:27 Gram Stain - Final Abdomen - Aspirate Laboratory Results 07/20/17 04:22 07/20/17 04:22 07/19/17 07/20/17 07/21/17 05:59 05:59 05:59 Intake Total 2180 1610 Output Total 1545 3265 Balance 635 -1655 C-Reactive Protein 83.9 mg/L (<10.0) H 07/19/17 05:00 - Physical Exam General Appearance: alert, no apparent distress, non-toxic EENT: pale conjunctiva, No thrush Respiratory: lungs clear, No accessory muscle use, No crackles Neck: supple Cardiac/Chest: regular rate, rhythm Extremities: No pedal edema Abdomen: normal bowel sounds, soft, distended (very mild), other (stoma pink and healthy appearing to L of midline incision, midline incision without erythema or drainage) Skin: pallor, No rash Neuro/Psych: alert, normal mood/affect, oriented x 3 - Time Spent With Patient Time Spent with Patient: greater than 25 minutes Time Spent with Patient: Greater than 25 minutes spent on this patients care, greater than 50% of time spent counseling, educating, and coordinating care regarding the above mentioned plan. ICD10 Worksheet Patient Problems: Problems Problem Status Onset Abdominal pain Acute Chest pain Acute Paroxysmal SVT (supraventricular tachycardia) Acute Paroxysmal VT Acute
--- NOTE | 2017-07-20 08:57 | SOAPPROG ---
SOAP Progress Note Assessment/Plan: Assessment/Plan: - 71yo F s/p ex-lap, sigmoidectomy, end colostomy for perforated sigmoid diverticulitis (Hinchey 3) - VSS, HDS, afebrile - pain well controlled - WBC 10 from 10, Cx growing out pseudomonas and e coli, appreciate ID asistance - Path reviewed with patient, no Ca, ends viable. - making progress. 07/17/17 11:02 07/17/17 11:04 07/18/17 10:13 07/20/17 08:55 07/20/17 08:56 Subjective: feels well, pain is controlled. Tolerating regular diet. Objective: Vital Signs Temp Pulse Resp BP Pulse Ox 36.8 C 62 18 159/79 H 95 07/20/17 07:15 07/20/17 08:08 07/20/17 07:15 07/20/17 08:08 07/20/17 07:15 Microbiology 07/16/17 12:27 Gram Stain - Final Abdomen - Aspirate 07/16/17 12:27 Mycobacterial Smear (ALEXANDREA) - Final Abdomen - Aspirate Laboratory Results 07/20/17 04:22 07/20/17 04:22 07/19/17 07/20/17 07/21/17 05:59 05:59 05:59 Intake Total 2180 1610 Output Total 1545 3265 Balance 635 -1655 PT 15.8 SEC (12.0-15.0) H 07/16/17 11:00 INR 1.24 (0.83-1.16) H 07/16/17 11:00 ICD10 Worksheet Patient Problems: Problems Problem Status Onset Abdominal pain Acute Chest pain Acute Paroxysmal SVT (supraventricular tachycardia) Acute Paroxysmal VT Acute
--- NOTE | 2017-07-20 09:44 | WOCRNPDOC ---
WOCRN Advanced Assessment Note - Colostomy Assessment, Advanced Left Lower Abdomen Colostomy Stoma Colostomy Appliance Intact: Yes Colostomy Appliance Currently in Use: Two Piece Flat, 2 3/4, Cut to Fit Stoma Color: Red Stoma Turgor: Moist Stoma Shape: Oval Stoma Height: Protruding Mucocutaneus Junction: Intact Colostomy Effluent: Mixed Fecal/Serosangenous Colostomy Details: End, Trent's Pouch Peristomal Skin: Intact Colostomy Comment/Treatment Details: Teaching 1 and 2 done with patient. Educational materials given. Pouch change demonstrated with some patient participation. Stoma is healthy and producing with good bowel sounds. Stoma is only seperated from midline incision by 1 cm and appliance overlaps onto cuca. Discussed one vs two piece options and with patient's preference for one piece options the initial supplies will be ordered from [employer]. Patient fits in a 2 3/4 appliance. Patient did a return demo of emptying pouch and is very willing and able to learn. hot iron worker will round again tomorrow. Please have patient participate in all care, including changing and emtpying pouch. Secure start initiated with josy. Patient prefers [employer] lock and roll to [employer].
[2017-07-20] MEDS: MICAFUNGIN NA 100 MG in NS 100 ML IV SCH (10:20)
--- NOTE | 2017-07-20 13:15 | HOSPPROG ---
Hospitalist Progress Note Assessment/Plan: * Perforated diverticulitis s/p sigmoid colectomy - end colostomy with Mixon' s pouch -regular diet -Diet per Surgery * Peritonitis - gross pus contamination during OR -culture c/w pseudomonas -IV Zosyn per ID -Micafungin per ID * Acute respiratory failure - due to abdominal distention - resolved * Afib -on home med: sotalol -Eliquis * Metabolic encephalopathy - resolved * HTN -tolerating home meds. BP is appropriate * Hypokalemia, replace PRN per protocol Plan: per above monitor HR and BP closely Zosyn, Micafungin per ID Will likely need a PICC line PT/OT Seen twice including during team rounds. d/w nurse, charge nurse, pharmacist, and block and case maker. Subjective: tolerating a regular diet. minimial pain. no resp complaints. Objective: Vital Signs Temp Pulse Resp BP Pulse Ox 36.6 C 60 16 127/74 H 94 07/20/17 11:08 07/20/17 11:08 07/20/17 11:08 07/20/17 11:08 07/20/17 11:08 Microbiology 07/16/17 12:27 Gram Stain - Final Abdomen - Aspirate 07/16/17 12:27 Mycobacterial Smear (ALEXANDREA) - Final Abdomen - Aspirate Laboratory Results 07/20/17 04:22 07/20/17 04:22 07/19/17 07/20/17 07/21/17 05:59 05:59 05:59 Intake Total 2180 1610 Output Total 1545 3265 Balance 635 -1655 PT 15.8 SEC (12.0-15.0) H 07/16/17 11:00 INR 1.24 (0.83-1.16) H 07/16/17 11:00 - Physical Exam Constitutional: no apparent distress, appears nourished Eyes: PERRL, EOMI Ears, Nose, Mouth, Throat: moist mucous membranes Cardiovascular: regular rate and rhythym, no murmur, rub, or gallop Respiratory: no respiratory distress Gastrointestinal: soft, non-tender abdomen Skin: warm Musculoskeletal: generalized weakness Neurologic: AAOx3 Psychiatric: interacting appropriately, not anxious, not encephalopathic, thought process linear Lymph, Heme, Immunologic: No petechiae ICD10 Worksheet Patient Problems: Problems Problem Status Onset Abdominal pain Acute Chest pain Acute Paroxysmal SVT (supraventricular tachycardia) Acute Paroxysmal VT Acute
[2017-07-20] MEDS: ATORVASTATIN CALCIUM 10 MG TAB PO SCH (17:44)
[2017-07-21 04:05] LABS: PLATELET COUNT 343 10^3/uL (150-400)
[2017-07-21] MEDS: PIPERACILLIN/TAZO 4.5 GM/DEX 100 ML IV SCH ×3 (06:13→18:32)
[2017-07-21] MEDS: LISINOPRIL 40 MG TAB PO SCH (06:18)
[2017-07-21] MEDS: HYDROCHLOROTHIAZIDE 12.5 MG CAP PO SCH ×2 (06:18→07:17)
[2017-07-21] MEDS: amLODIPine BESYLATE 5 MG TAB PO SCH (06:18)
[2017-07-21] MEDS: APIXABAN 5 MG TAB PO SCH ×2 (06:18→18:32)
[2017-07-21] MEDS ORDERED: POTASSIUM CL 10 MEQ TAB PO ONE (09:07)
[2017-07-21] MEDS: SOTALOL HCL 80 MG TAB PO SCH ×2 (09:39→21:32)
[2017-07-21] MEDS: prednisoLONE ACET 1% 5 ML OPHT.BTL LEFTEYE SCH (09:39)
[2017-07-21] MEDS: MICAFUNGIN NA 100 MG in NS 100 ML IV SCH (09:40)
--- NOTE | 2017-07-21 10:53 | PCMIDPN ---
Assessment/Plan: Polymicrobial peritonitis due to perf diverticulitis s/p Ex-lap, sigmoid colectomy with Trent's pouch - patient doing remarkably well. Very mild persistent WBC elevation without any clinically abnormal findings --continue high dose Zosyn for polymicrobial infection including PsA. --cannot receive FQ due to Sotalol therapy --plan Zosyn continuous infusion 18 g this daily, stop date 08/07/17 --continue to monitor cultures --Care coordinated with Dr. Campa, tentatively plan dc tomorrow - ok from ID standpoint micro peritoneal fluid: gram stain : 3+GPC, 2+ GPR, 1+ GNR --> cx on GNR growing so far da silva-S PsA and Ecoli - da silva S peritoneal fungal cx: pending meds zosyn 4.5gm IV [id number] #2 Subjective: minimal abdominal pain no c/o ready to go home Objective: Vital Signs Temp Pulse Resp BP Pulse Ox 36.6 C 64 18 165/98 H 97 07/21/17 08:00 07/21/17 09:39 07/21/17 08:00 07/21/17 09:39 07/21/17 08:00 Microbiology 07/16/17 12:27 Gram Stain - Final Abdomen - Aspirate Laboratory Results 07/21/17 03:57 07/21/17 03:57 07/20/17 07/21/17 07/22/17 05:59 05:59 05:59 Intake Total 1610 1650 125 Output Total 3265 45 50 Balance -1655 1605 75 C-Reactive Protein 83.9 mg/L (<10.0) H 07/19/17 05:00 - Physical Exam General Appearance: alert, no apparent distress EENT: No thrush Respiratory: lungs clear, No accessory muscle use Cardiac/Chest: irregularly irregular Extremities: No pedal edema Abdomen: normal bowel sounds, non-tender, soft, other (Ostomy bag full of stool) , No distended Pelvic Exam: No kim Skin: warm/dry, pallor, No diaphoresis, No rash Neuro/Psych: alert, normal mood/affect, oriented x 3 - Time Spent With Patient Time Spent with Patient: greater than 35 minutes (Reviewed PICC line risk factors, antibiotic allergy, risk of C diff - reviewed w patient and ) Time Spent with Patient: Greater than 35 minutes spent on this patients care, greater than 50% of time spent counseling, educating, and coordinating care regarding the above mentioned plan. ICD10 Worksheet Patient Problems: Problems Problem Status Onset Abdominal pain Acute Chest pain Acute Paroxysmal SVT (supraventricular tachycardia) Acute Paroxysmal VT Acute
[2017-07-21] MEDS ORDERED: ALTEPLASE 2 MG VIAL IVP PRN (11:24)
--- NOTE | 2017-07-21 11:32 | PDIAF ---
- Diagnosis Diagnosis: Polymicrobial peritonitis Code Status: Full Code - Medication Management Discharge Medications: Medications to Continue on Transfer Lisinopril [Zestril 40 mg (*)] 40 mg PO DAILY@62907/02/13 [Last Taken 07/13/17 ] Simvastatin [Zocor 20 mg] 20 mg PO DAILY@182907/02/13 [Last Taken 07/13/17] amLODIPine BESYLATE [Norvasc 5 mg (*)] 5 mg PO DAILY@62907/02/13 [Last Taken 07/13/17] Hydrochlorothiazide 12.5 mg PO DAILY@62906/29/17 [Last Taken 07/13/17] prednisoLONE ACET 1% [Pred Forte 1% (*)] 1 drops LEFTEYE BID 06/29/17 [Last Taken 07/14/17] Apixaban [Eliquis] 5 mg PO BID@0630,182907/13/17 [Last Taken 07/13/17 18:30] Sotalol HCl [Betapace 80 MG (*)] 80 mg PO BID@629,182907/13/17 [Last Taken 06/01 18:30] Prison Antibiotics: zosyn 4.5 gm IV continuous infusion Prison Antibiotic Stop Date: 08/07/17 Discharge Medications: Refer to the Discharge Home Medication list for PRN reason. PICC Care - Routine: Yes - Orders Services needed: Home Care, Registered Nurse Home Care Face to Face: I certify that this patient was under my care and that I had the required [id number] encounter meeting the encounter requirements on the discharge day. My findings support the fact that the patient is homebound as defined in Home Care Face to Face Continued: CMS Chapter 7 Medicare Benefits Manual 30.1.1 , The condition of the patient is such that there exists a normal inability to leave home and consequently, leaving home would require a considerable and taxing effort. - Labs/Radiology CBC w/diff Date: 07/24/17 (weekly Monday) CMP Date: 07/24/17 (weekly Monday) Call or Fax Lab and Imaging Results to: Dr. Vin Waters [phone] infectious disease MD - Follow Up Care Current Providers and Referrals: Shyanne Mckeon MD [Primary Care Provider] - As per Instructions Vin Waters MD [Medical Doctor] - 07/31/17 11:00 am
--- NOTE | 2017-07-21 13:55 | SOAPPROG ---
SOAP Progress Note Assessment/Plan: Assessment/Plan: - 71yo F s/p ex-lap, sigmoidectomy, end colostomy for perforated sigmoid diverticulitis (Hinchey 3) - VSS, HDS, afebrile - minimal pain - abdomen soft, minimally distended. Raymond c/d/i. Ostomy functioning well - Planning dc tomorrow on cont zosyn infusion via PICC - can f/u with me in 7-10 days for post op, staple removal. Discussed planned repeat scan in about 6 weeks prior to takedown 07/17/17 11:02 07/17/17 11:04 07/18/17 10:13 07/20/17 08:55 07/20/17 08:56 07/21/17 13:54 Subjective: fells well, tolerating reg diet. Objective: Vital Signs Temp Pulse Resp BP Pulse Ox 36.1 C 60 16 152/72 H 96 07/21/17 11:31 07/21/17 11:31 07/21/17 11:31 07/21/17 11:31 07/21/17 11:31 Microbiology 07/16/17 12:27 Gram Stain - Final Abdomen - Aspirate Laboratory Results 07/21/17 03:57 07/21/17 03:57 07/20/17 07/21/17 07/22/17 05:59 05:59 05:59 Intake Total 1610 1650 125 Output Total 3265 45 250 Balance -1655 1605 -125 PT 15.8 SEC (12.0-15.0) H 07/16/17 11:00 INR 1.24 (0.83-1.16) H 07/16/17 11:00 ICD10 Worksheet Patient Problems: Problems Problem Status Onset Abdominal pain Acute Chest pain Acute Paroxysmal SVT (supraventricular tachycardia) Acute Paroxysmal VT Acute
[2017-07-21] MEDS: ACETAMINOPHEN 325 MG TAB PO PRN ×2 (14:02→21:31)
--- NOTE | 2017-07-21 14:24 | HOSPPROG ---
Hospitalist Progress Note Assessment/Plan: * Perforated diverticulitis s/p sigmoid colectomy - end colostomy with Mixon' s pouch -regular diet -Diet per Surgery * Peritonitis - gross pus contamination during OR -culture c/w pseudomonas -IV Zosyn per ID -Micafungin per ID * Acute respiratory failure - due to abdominal distention - resolved * Afib -on home med: sotalol -Eliquis * Metabolic encephalopathy - resolved * HTN -tolerating home meds. BP is appropriate * Hypokalemia, replace PRN per protocol Plan: Zosyn, Micafungin per ID PICC today PT/OT Plan for discharge tomorrow BP is slightly elevated, but also some reading are appropriate. Cont to monitor. Subjective: no overnight event, no new complaints. Objective: Vital Signs Temp Pulse Resp BP Pulse Ox 36.1 C 60 16 152/72 H 96 07/21/17 11:31 07/21/17 11:31 07/21/17 11:31 07/21/17 11:31 07/21/17 11:31 Microbiology 07/16/17 12:27 Gram Stain - Final Abdomen - Aspirate Laboratory Results 07/21/17 03:57 07/21/17 03:57 07/20/17 07/21/17 07/22/17 05:59 05:59 05:59 Intake Total 1610 1650 125 Output Total 3265 45 250 Balance -1655 1605 -125 PT 15.8 SEC (12.0-15.0) H 07/16/17 11:00 INR 1.24 (0.83-1.16) H 07/16/17 11:00 - Physical Exam Constitutional: no apparent distress Eyes: PERRL Ears, Nose, Mouth, Throat: moist mucous membranes, hearing normal Cardiovascular: regular rate and rhythym Respiratory: no respiratory distress, no rales or rhonchi, clear to auscultation Gastrointestinal: No distension Skin: warm Neurologic: AAOx3 Psychiatric: interacting appropriately, not anxious, not encephalopathic ICD10 Worksheet Patient Problems: Problems Problem Status Onset Abdominal pain Acute Chest pain Acute Paroxysmal SVT (supraventricular tachycardia) Acute Paroxysmal VT Acute
[2017-07-21] MEDS ORDERED: LIDOCAINE 1% 2 ML INJ ONE (14:39)
--- NOTE | 2017-07-21 14:48 | ASMTCMCOM ---
CM Note CM Note Notes: Pts case discussed in morning rounds. Anticipate d/c for tomorrow. CM sent [facility] the transfer of care summary. CM to notified Priscila at [facility] tomorrow, P#: [phone]. CM to follow. Plan: [facility]; RN with [facility] Date Signed: 07/21/2017 02:47 PM Electronically Signed By:REBECCA Menjivar
--- NOTE | 2017-07-21 15:15 | WOCRNPDOC ---
WOCRN Advanced Assessment Note - Colostomy Assessment, Advanced Left Lower Abdomen Colostomy Stoma Colostomy Appliance Intact: Yes Colostomy Appliance Currently in Use: Two Piece Flat, 2 3/4, Cut to Fit Stoma Color: Red Stoma Turgor: Moist Stoma Shape: Oval Stoma Height: Protruding Mucocutaneus Junction: Intact Colostomy Effluent: Fecal, Thick Colostomy Size - Head-to-Toe Length X Width X Depth (cm): 44mm up and down, 51mm side to side Colostomy Details: End, Trent's Pouch Peristomal Skin: Intact Colostomy Comment/Treatment Details: Teaching and appliance change w/ patient and her John. Follow-up teaching today: discussed measuring stoma, peristomal skin care, types of pouching systems, showering, diet, and when to seek help from WOC RN. Patient provided w/ some additional supplies, including pouch deodorizer and curved scissors. Samples and home care supplies were previously authorized by the patient and have been ordered for delivery to their home. Both and patient participated in appliance change, and asked questions specific to care and management.
[2017-07-21] MEDS: ATORVASTATIN CALCIUM 10 MG TAB PO SCH (18:32)
[2017-07-21] MEDS: HYDROCODONE/APAP 5/325 TAB PO PRN (21:31)
[2017-07-22] MEDS: PIPERACILLIN/TAZO 4.5 GM/DEX 100 ML IV SCH ×3 (00:19→11:54)
[2017-07-22] MEDS: ACETAMINOPHEN 325 MG TAB PO PRN ×2 (04:43→09:09)
[2017-07-22] MEDS: amLODIPine BESYLATE 5 MG TAB PO SCH (05:41)
[2017-07-22] MEDS: LISINOPRIL 40 MG TAB PO SCH (05:41)
[2017-07-22] MEDS: APIXABAN 5 MG TAB PO SCH (06:23)
[2017-07-22] MEDS: SOTALOL HCL 80 MG TAB PO SCH (07:27)
[2017-07-22 07:28] VITALS: PULSE 54
[2017-07-22] MEDS: prednisoLONE ACET 1% 5 ML OPHT.BTL LEFTEYE SCH (07:28)
[2017-07-22 07:31] VITALS: RESP 17; O2SAT 96
[2017-07-22 10:57] VITALS: BP 149/85; TEMP 97.7
--- NOTE | 2017-07-22 11:16 | SOAPPROG ---
SOAP Progress Note Assessment/Plan: Assessment: 71-YEAR-OLD FEMALE DOING WELL AFTER PERFORATED DIVERTICULITIS WITH END COLOSTOMY ABDOMEN SOFT, WOUND OKAY, OSTOMY DOING WELL CHEST CLEAR, COR REGULAR RHYTHM, NONICTERIC/AFEBRILE PATIENT WANTS TO GO HOME TODAY AND IS COMFORTABLE WITH HER COLOSTOMY CARE Plan: DISCHARGE 07/22/17 11:14 Objective: Vital Signs Temp Pulse Resp BP Pulse Ox 36.5 C 54 L 17 149/85 H 96 07/22/17 10:56 07/22/17 07:29 07/22/17 07:29 07/22/17 10:56 07/22/17 07:29 Microbiology 07/16/17 12:27 Gram Stain - Final Abdomen - Aspirate Laboratory Results 07/21/17 03:57 07/22/17 06:20 07/21/17 07/22/17 07/23/17 05:59 05:59 06:59 Intake Total 1650 2415 400 Output Total 45 251 Balance 1605 2164 400 PT 15.8 SEC (12.0-15.0) H 07/16/17 11:00 INR 1.24 (0.83-1.16) H 07/16/17 11:00 ICD10 Worksheet Patient Problems: Problems Problem Status Onset Abdominal pain Acute Chest pain Acute Paroxysmal SVT (supraventricular tachycardia) Acute Paroxysmal VT Acute
--- NOTE | 2017-07-22 11:47 | PDIAF ---
- Diagnosis Diagnosis: Polymicrobial peritonitis Code Status: Full Code - Medication Management Discharge Medications: Medications to Continue on Transfer Lisinopril [Zestril 40 mg (*)] 40 mg PO DAILY@0630 07/02/13 [Last Taken 07/13/17 ] Simvastatin [Zocor 20 mg] 20 mg PO DAILY@18307/02/13 [Last Taken 07/13/17] amLODIPine BESYLATE [Norvasc 5 mg (*)] 5 mg PO DAILY@62907/02/13 [Last Taken 07/13/17] Hydrochlorothiazide 12.5 mg PO DAILY@62906/29/17 [Last Taken 07/13/17] prednisoLONE ACET 1% [Pred Forte 1% (*)] 1 drops LEFTEYE BID 06/29/17 [Last Taken 07/14/17] Apixaban [Eliquis] 5 mg PO BID@0630,182907/13/17 [Last Taken 07/13/17 18:30] Sotalol HCl [Betapace 80 MG (*)] 80 mg PO BID@0630,182907/13/17 [Last Taken 06/01 18:30] Hydrocodone/APAP 5/325 [Foster 5/325 (*)] 1 - 2 tab PO Q4HRS PRN #30 tab [Last Taken Unknown] Slip Presser Antibiotics: zosyn 18 gm IV continuous infusion Fpc Antibiotic Stop Date: 08/07/17 Discharge Medications: Refer to the Discharge Home Medication list for PRN reason. PICC Care - Routine: Yes - Orders Services needed: Home Care, Registered Nurse, Physical Therapy, Occupational Therapy Home Care Face to Face: I certify that this patient was under my care and that I had the required [id number] encounter meeting the encounter requirements on the discharge day. My findings support the fact that the patient is homebound as defined in Home Care Face to Face Continued: CMS Chapter 7 Medicare Benefits Manual 30.1.1 , The condition of the patient is such that there exists a normal inability to leave home and consequently, leaving home would require a considerable and taxing effort. Diet Recommendation: no restrictions on diet Diet Texture: Regular Texture Diet - Labs/Radiology CBC w/diff Date: 07/24/17 (weekly Monday) CMP Date: 07/24/17 (weekly Monday) Call or Fax Lab and Imaging Results to: Dr. Vin Waters [phone] infectious disease MD - Follow Up Care Current Providers and Referrals: Shyanne Mckeon MD [Primary Care Provider] - As per Instructions Kem Campa MD [Medical Doctor] - (7-10 days ) Vin Waters MD [Medical Doctor] - 07/31/17 11:00 am
--- NOTE | 2017-07-22 12:01 | ASMTCMCOM ---
CM Note CM Note Notes: Discussed in rounds. Patient medically cleared for discharge. Called [facility] who can accommodate delivery if ANTB. Message left with Priscila HC completion supervisor RN. Will update dc orders via allscripts. RN to call [facility] with report. CM available should other needs arise. Date Signed: 07/22/2017 12:00 PM Electronically Signed By:Opal Triplett RN
--- NOTE | 2017-07-22 12:02 | ASMTLACE ---
JAKOB Length of stay for Answers: 7-13 days current admission # of Emergency department Answers: 1-2 visits in the last 6 months Score: 6 Date Signed: 07/22/2017 12:01 PM Electronically Signed By:Opal Triplett RN
--- NOTE | 2017-07-22 15:14 | ASDISCHSUM ---
Discharge Information Plan Status:Home with Home Health Medically Cleared to Leave:07/21/2017 Discharge Date:07/22/2017 01:34 PM D/C Disposition:Home Health Service ADT D/C Disposition:Home Health Service Projected Discharge Date:07/20/2017 11:00 AM Transportation at D/C:Family Discharge Delay Reason: Follow-Up Date:07/20/2017 11:00 AM Discharge Slot: Final Diagnosis: Placement Information Referral Type:Home Infusion Referral ID:[id number] Provider Name:[facility] ([facility]) Address 1:[address] Address 2: City:[place] Selection Factors: State:[place] Referral Type:*Home Health Care Services Referral ID:[id number] Provider Name:[facility] Address 1:[address] Address 2: City:[place] Selection Factors: State:[place] Patient Contact Information Contact Name:AP Relationship:Kayla Address:[address] City:[place] Alternate Phone: State/Zip Code:[place] [address] Email: Financial Information Financial Class:Medicare Advantage Plans Primary Plan Desc:[employer] Primary Plan Number:[id number] Secondary Plan Desc: Secondary Plan Number: Assessment Information LACE LACMelinda Length of stay for Answers: 7-13 days current admission # of Emergency department Answers: 1-2 visits in the last 6 months Score: 6 Date Signed: 07/22/2017 12:01 PM Electronically Signed By:Opal Triplett RN [facility] Initial CM Assessment Living Arrangements What is your living Answers: With Spouse arrangement? Who do you live with? Type Of Residence What kind of residence do Answers: House you live in? Discharge Plan Comments Coordination Status Comments Notes: Pt is a 71 y/o female admitted for constipation and abdominal pain. Therapies have been ordered and awaiting recommendation. Needs are TBD at this time. CM to follow. Plan: TBD Date Signed: 07/14/2017 02:34 PM Electronically Signed By:REBECCA Menjivar [facility] CM Progress Note CM Note CM Note Notes: Pt currently on IVF, IV ABX for diverticulitis and conservative treatment for constipation. No surgery planned at this time. Anticipate d/c with no CM needs but will continue to follow for any change in needs. Date Signed: 07/15/2017 02:49 PM Electronically Signed By:CHAR Singer [facility] CM Progress Note CM Note CM Note Notes: POD#1 s/p expl lap, sigmoidectomy and new colostomy. Pt lives at home w/. PT recommending HHC. Met w/pt to discuss. She is open to HHC; will benefit from home RN for new ostomy care/education. Pt is also open to PT at home but is not sure she will need it by the time she dc'd from hosp; will reassess this closer to dc. Pt 's will look into [facility] agencies and let us know tomorrow which agency. CM will follow. Date Signed: 07/17/2017 05:23 PM Electronically Signed By:Lurdes Lewis RN [facility] Progress Note CM Note CM Note Notes: ID saw patient today and recommends 2 weeks of IV antibiotic therapy. I sent a referral to [facility], and Ladi will come speak with patient tomorrow about her insurance benefits. I also sent a referral to [facility] - patient will definitely need an RN and may have PT if she likes. Case Management will follow. Date Signed: 07/18/2017 03:40 PM Electronically Signed By:Farheen Whaley RN [facility] PATRICIA Progress Note CM Note CM Note Notes: Pts case reviewed in morning rounds[facility]. Pt will use [facility]. CM followed up w/ [facility]. [facility] is able to accept pt. CM met w/ pt and discussed d/c plans. Pt is agreeable to plan. CM to follow. Plan: RODRIGUE CRUZ, PT with [employer] Date Signed: 07/19/2017 04:08 PM Electronically Signed By:REBECCA Menjivar [facility] Progress Note CM Note CM Note Notes: Pts case discussed in morning rounds. Anticipate d/c for tomorrow. CM sent [employer] the transfer of care summary. CM to notified Priscila at [facility] tomorrow, P#: [phone]. CM to follow. Plan: [facility]; RN with [employer] Date Signed: 07/21/2017 02:47 PM Electronically Signed By:REBECCA Menjivar [facility] Progress Note CM Note CM Note Notes: Discussed in rounds. Patient medically cleared for discharge. Called [employer] who can accommodate delivery if ANTB. Message left with [facility] application support lead RN. Will update dc orders via [employer]. RN to call [facility] with report. CM available should other needs arise. Date Signed: 07/22/2017 12:00 PM Electronically Signed By:Opal Triplett RN Case Management Discharge Plan Note Case Management Discharge Discharge Order Complete? Answers: Yes Patient to Obtain Answers: Other Notes: [employer] [facility] Transportation Arranged Answers: Family/Friends Faxed Final Orders Answers: Yes Family Notified Answers: Yes Date Signed: 07/22/2017 12:01 PM Electronically Signed By:Opal Triplett RN Intervention Information
== END 2017-07-22 13:34 | disposition home health service (06) | DRG 329 ==
LOC: F2W 09:40 → OBSVTOIN 18:17
PROVIDERS: ADMIT Internal Medicine; ATTEND Internal Medicine
PROC: 0D1M0ZP Bypass Descending Colon to Rectum, Open Approach (ICD-10-PCS; principal; 2017-07-16 11:45)
PROC: 0DTN0ZZ Resection of Sigmoid Colon, Open Approach (ICD-10-PCS; principal; 2017-07-16 11:45)
PROC: 02HV33Z Insertion of Infusion Device into Superior Vena Cava, Percutaneous Approach (ICD-10-PCS; 2017-07-21)
DX: K57.20 Diverticulitis of large intestine with perforation and abscess without bleeding (principal); G93.41 Metabolic encephalopathy; J96.01 Acute respiratory failure with hypoxia; B96.5 Pseudomonas (aeruginosa) (mallei) (pseudomallei) as the cause of diseases classified elsewhere; K59.09 Other constipation; I10 Essential (primary) hypertension; E78.5 Hyperlipidemia, unspecified; I48.91 Unspecified atrial fibrillation; E87.6 Hypokalemia
CPT/HCPCS: 96374; 97110-GP; 97116-GP; 97161-GP; 97166-GO; 97530-GO; 97530-GP; 97535-GO; C1751; G8978-GP-CI; G8979-GP-CH; J0171; J1100; J1650; J2001; J2212; J2248; J2270; J2370; J2405; J2543; J2550; J2704; J3010

== ENCOUNTER → 2017-09-27 | Outpatient (CLI) | payer OTHER ==
[~2017-09-27] MED LIST: IOPAMIDOL (ISOVUE-300) 100 ML BTL ONE
== END ==
LOC: FIMAGING 09:42
PROVIDERS: ATTEND Surgery
DX: Z87.19 Personal history of other diseases of the digestive system (principal); N94.89 Other specified conditions associated with female genital organs and menstrual cycle; K59.00 Constipation, unspecified; Z90.49 Acquired absence of other specified parts of digestive tract; Z93.3 Colostomy status
CPT/HCPCS: 74177; Q9967

== ENCOUNTER 2017-11-02 06:51 | Inpatient (IN) | payer OTHER ==
--- NOTE | 2017-10-31 15:24 | PDGENHP ---
History and Physical - Chief Complaint colostomy TD - History of Present Illness 72yo female who originally underwent colectomy with Trent's for Hinchey grade 3 diverticulitis in July of 2017. Went home on IV antibiotics. has overall done well. Wants reversal. Had pre-op CT scan which showed no residual fluid or inflammation. History Information - Allergies/Home Medication List Allergies/Adverse Reactions: No Known Allergies Allergy (Verified 07/14/17 07:03) Home Medications: Lisinopril [Zestril 40 mg (*)] 40 mg PO DAILY 07/02/13 [Last Taken 07/13/17] Simvastatin [Zocor 20 mg] 20 mg PO DAILY@1830 07/02/13 [Last Taken 07/13/17] amLODIPine BESYLATE [Norvasc 5 mg (*)] 5 mg PO DAILY 07/02/13 [Last Taken ] Hydrochlorothiazide 12.5 mg PO DAILY 06/29/17 [Last Taken 07/13/17] Apixaban [Eliquis] 5 mg PO BID 07/13/17 [Last Taken 07/13/17 18:30] Sotalol HCl [Betapace 80 MG (*)] 80 mg PO BID 07/13/17 [Last Taken 07/13/17 18: 30] Acetaminophen [Tylenol 325mg (*)] 325 mg PO DAILY PRN 10/31/17 [Last Taken Unknown] I have personally reviewed and updated: family history, medical history, surgical history Past Medical History: A fib, HTN, HLD - Surgical History Additional surgical history: ex-lap, colectomy - Family History Positive for: non-pertinent - Social History Smoking Status: Never smoked Review of Systems Review of Systems: ROS: 10pt was reviewed & negative except for what was stated in HPI & below Physical Exam Physical Exam: Constitutional: no apparent distress, appears nourished, not in pain Eyes: PERRL, anicteric sclera, EOMI Ears, Nose, Mouth, Throat: moist mucous membranes, hearing normal, ears appear normal, no oral mucosal ulcers Cardiovascular: regular rate and rhythym, no murmur, rub, or gallop, No edema Respiratory: no respiratory distress, no rales or rhonchi, clear to auscultation Gastrointestinal: normoactive bowel sounds, soft, non-tender abdomen, no palpable masses, other (colostomy beefy red, stool and gas in appliance) Genitourinary: no bladder fullness, no bladder tenderness Skin: warm, normal color, no rashes or abrasions, no fluctuance, no induration, No mottled Musculoskeletal: full muscle strength, no muscle tenderness, normal joint ROM, no joint effusions Psychiatric: interacting appropriately, not anxious, not encephalopathic, thought process linear Lymph, Heme, Immunologic: no cervical LAD, no supraclavicular LAD Lab Data & Imaging Review Interpretation: CT: no fluid or residual inflammation. Assessment & Plan Assessment: 72yo F c Trent's - desires reversal Plan: plan for laparoscopic colostomy TD. RBA discussed including the 50/50 chance of needing to open. She understands and wishes to proceed with OR
[2017-11-02] MEDS ORDERED: LIDOCAINE 1% 2 ML INJ ID PRN (07:13)
[2017-11-02] MEDS ORDERED: LR 1,000 ML IV ONE (07:13)
[2017-11-02] MEDS ORDERED: ceFAZolin 2 GM/DEXTROSE 100 ML IV ONE (07:15)
[2017-11-02] MEDS ORDERED: EPINEPHrine 1 MG/ML INJ ONE ×2 (07:47→11:25)
[2017-11-02] MEDS ORDERED: BUPIVACAINE 0.25% 30 ML SDV ONE ×2 (07:47→11:25)
[2017-11-02 07:51] LABS: PLATELET COUNT 313 10^3/uL (150-400)
[2017-11-02] MEDS ORDERED: PROPOFOL 200 MG/20 ML VIAL ONE (07:59)
[2017-11-02] MEDS ORDERED: fentaNYL 100 MCG/2 ML INJ ONE ×3 (07:59→10:59)
[2017-11-02] MEDS ORDERED: DEXAMETHASONE 4 MG/ML VIAL ONE (07:59)
[2017-11-02] MEDS ORDERED: ONDANSETRON 4 MG/2 ML VIAL ONE (07:59)
[2017-11-02] MEDS ORDERED: SUGAMMADEX SODIUM 200 MG/2 ML VIAL IVP ONE (08:00)
[2017-11-02] MEDS ORDERED: ROCURONIUM 100 MG/10 ML VIAL ONE (08:00)
[2017-11-02] MEDS ORDERED: LIDOCAINE 2% 5 ML SDV ONE (08:01)
[2017-11-02] MEDS ORDERED: PHENYLEPHRINE HCL 100 MCG/ML SYR ONE (08:18)
--- NOTE | 2017-11-02 08:20 | PDANEPAE ---
ANE History of Present Illness colostomy takedown ANE Past Medical History - Cardiovascular History Hx Hypertension: Yes Hx Arrhythmias: Yes Hx Chest Pain: No Hx Coronary Artery / Peripheral Vascular Disease: No Hx CHF / Valvular Disease: No Hx Palpitations: Yes Cardiovascular History Comment: a fib, ?v-tach - ASYMPTOMATIC - Pulmonary History Hx COPD: No Hx Asthma/Reactive Airway Disease: No Hx Recent Upper Respiratory Infection: No Hx Oxygen in Use at Home: No Hx Sleep Apnea: No Sleep Apnea Screening Result - Last Documented: Negative - Neurologic History Hx Cerebrovascular Accident: No Hx Seizures: No Hx Dementia: No - Endocrine History Hx Diabetes: No Hypothyroid: No Hyperthyroid: No Obesity: no Endocrine History Comment: dyslipidemia - Renal History Hx Renal Disorders: No - Liver History Hx Hepatic Disorders: No - Neurological & Psychiatric Hx Hx Neurological and Psychiatric Disorders: No - Cancer History Hx Cancer: No - Congenital Disorder History Hx Congenital Disorders: No - GI History Hx Gastrointestinal Disorders: Yes Gastrointestinal History Comment: diverticulitis - Other Health History Other Health History: SUN RASH - Chronic Pain History Chronic Pain: No - Surgical History Prior Surgeries: BOWEL RESECTION/ COLOSTOMY. CATARACTS FELICIA. TONSILLECTOMY. APPENDECTOMY. TUBAL LIGATION ANE Review of Systems Review of systems is: negative Review of Systems: - Exercise capacity METS (RN): 5 METS ANE Patient History - Allergies Allergies/Adverse Reactions: No Known Allergies Allergy (Verified 11/02/17 07:23) - Home Medications Home medications: home medication list seen and reviewed Home Medications: Lisinopril [Zestril 40 mg (*)] 40 mg PO DAILY 07/02/13 [Last Taken 11/02/17 0600 ] Simvastatin [Zocor 20 mg] 20 mg PO DAILY@1830 07/02/13 [Last Taken 07/13/17] amLODIPine BESYLATE [Norvasc 5 mg (*)] 5 mg PO DAILY 07/02/13 [Last Taken 06:00] Hydrochlorothiazide 12.5 mg PO DAILY 06/29/17 [Last Taken 07/13/17] Apixaban [Eliquis] 5 mg PO BID 07/13/17 [Last Taken 07/13/17 18:30] Sotalol HCl [Betapace 80 MG (*)] 80 mg PO BID 07/13/17 [Last Taken 11/02/17 06: 00] Acetaminophen [Tylenol 325mg (*)] 325 mg PO DAILY PRN 10/31/17 [Last Taken Unknown] - NPO status NPO Since - Liquids (Date): 11/01/17 NPO Since - Liquids (Time): 21:00 NPO Since - Solids (Date): 11/01/17 NPO Since - Solids (Time): 21:00 - Smoking Hx Smoking Status: Never smoked - Family Anes Hx Family Hx Anesthesia Complications: NEG ANE Labs/Vital Signs - Labs Result Diagrams: 11/02/17 07:20 11/02/17 07:20 - Vital Signs Blood Pressure: 179/90 Heart Rate: 50 Respiratory Rate: 15 O2 Sat (%): 96 Height: 154.94 cm Weight: 57.153 kg ANE Physical Exam - Airway Neck exam: FROM Mallampati Score: Class 2 Mouth exam: normal dental/mouth exam - Pulmonary Pulmonary: no respiratory distress - Cardiovascular Cardiovascular: regular rate and rhythym - ASA Status ASA Status: III ANE Anesthesia Plan Anesthesia Plan: general endotracheal anesthesia
[2017-11-02] MEDS ORDERED: BUPIVACAINE/EPI 0.5% 30 ML SDV ONE (11:25)
[2017-11-02] MEDS ORDERED: PROMETHAZINE HCL 25 MG/ML INJ IVP PRN ×2 (11:30→12:12)
[2017-11-02] MEDS ORDERED: ONDANSETRON 4 MG/2 ML VIAL IVP PRN ×2 (11:30→12:12)
[2017-11-02] MEDS ORDERED: fentaNYL 100 MCG/2 ML INJ IVP PRN (11:30)
[2017-11-02] MEDS ORDERED: oxyCODONE IR 5 MG TAB PO PRN (11:30)
[2017-11-02] MEDS ORDERED: HYDROCODONE/APAP 5/325 TAB PO PRN (11:30)
[2017-11-02] MEDS ORDERED: ALBUTEROL 3 ML DEYVIAL IH PRN (11:30)
[2017-11-02] MEDS ORDERED: NALOXONE HCL 0.4 MG/ML INJ IVP PRN (11:30)
[2017-11-02] MEDS ORDERED: ACETAMINOPHEN 500 MG TAB PO PRN (11:30)
[2017-11-02] MEDS ORDERED: HYDROmorphONE/DILAUDID 1 MG/ML INJ IVP PRN ×2 (11:30→12:12)
[2017-11-02] MEDS ORDERED: LR 500 ML IV PRN (11:30)
--- NOTE | 2017-11-02 11:31 | POSTANESTH ---
Post Anesthetic Evaluation Cardiovascular Status: Normal, Stable Respiratory Status: Normal, Stable Level of Consciousness/Mental Status: Can Participate in Eval, Mildly Sleepy, Arousable Pain Control: Adequate, Prn Tx Ordered Nausea/Vomiting Control: Adequate, Prn Tx Ordered Complications Possibly Related to Anesthesia: None Noted
--- NOTE | 2017-11-02 12:12 | POSTOPPROG ---
Post Op Note Date of Operation: 11/02/17 Surgeon: Kem Campa Adding Machine Servicer: Rupert Fam MD Anesthesiologist: Gino Anesthesia: GET(General Endotracheal) Pre-op Diagnosis: perf diverticulitis, colostomy in place Post-op Diagnosis: same Procedure: Laparoscopic converted to open colostomy takedown Findings: neg leak test. 29EEA Inf/Abcess present in the surg proc area at time of surgery?: No EBL: Minimal Specimen(s): anastomotic doughnuts end colostomy
[2017-11-02] MEDS ORDERED: D5W 1/2 NS W/ 20 KCl/L 1,000 ML IV SCH (12:15)
--- NOTE | 2017-11-02 13:20 | GOP ---
[f rep st] OPERATIVE REPORT DATE OF OPERATION: 11/02/2017 SURGEON: Kem Campa MD CELL COVERER: Miah Fam MD. ANESTHESIA: General endotracheal. ANESTHESIOLOGIST: Tomás Christian MD. PREOPERATIVE DIAGNOSIS: End colostomy status post perforated diverticulitis. POSTOPERATIVE DIAGNOSIS: End colostomy status post perforated diverticulitis. PROCEDURE PERFORMED: Laparoscopic converted to open colostomy takedown. FINDINGS: Minimal pelvic adhesions from previous surgery. Was able to take these down laparoscopically. Laparoscopic EEA anastomosis was performed with positive leak test. Anastomosis completely redone 29 EEA stapled anastomosis. Negative leak test x3. SPECIMENS: 1. Anastomotic rings. 1. Distal end colostomy. 2. ESTIMATED BLOOD LOSS: 50 cc. DESCRIPTION OF PROCEDURE: The patient was greeted in the preoperative suite. Once again, risks, benefits, and alternatives were discussed. Consent was signed. She was then brought back to the operative suite, placed on the OR table in supine position. After all anesthesia machines including SCDs were on and functioning, World Health Organization time-out was performed. After a successful induction of general anesthesia, the patient's abdomen was prepped and draped in typical sterile fashion. Prior to this, she was placed in the low lithotomy position with all pressure points appropriately padded and a Arreguin catheter was placed. I entered the abdomen via an infraumbilical cutdown through which the Veress needle was passed. I achieved pneumoperitoneum to 15 mmHg CO2 which was well tolerated by the patient. Through this site, I inserted a 5 mm Visiport. Once successfully in the abdomen, I placed 2 additional 5 mm trocars, one in the right lower, one in the right upper quadrant. The patient in gentle Trendelenburg position and lysed multiple adhesions which included omentum and small bowel into the patient's pelvis. After these adhesions were successfully lysed, I successfully lysed the colonic adhesions from the distal colon, leaving only the colostomy site at the fascia level attached. I then desufflated my pneumoperitoneum. I made an elliptical incision around the colostomy site. I carried this down to subcutaneous tissue. The colon was successfully mobilized. I amputated the previous everted stoma and passed it off. I then pursestringed the area. A 25 mm dilator was then passed through the patient's rectal stump. After the pursestring was done, I placed the firing anvil into the area and tied it down. I then allowed this to go back into the patient's abdomen. The stoma site was closed with a running 0 PDS suture. I reinsufflated. I brought the stapler through the patient's rectal stump and successfully brought it to the anvil, fired the stapler. Leak test was initially positive. I buttressed an anterior portion which I felt the leak site was. The leak test was still positive. The decision was made at this point to convert to open. I made a small suprapubic incision encompassing the patient's old scar. I carried this down to subcutaneous tissue. I opened the fascia. I identified my previous anastomotic site and completely resected it using an RHETT 75 mm blue load stapler. It was then passed off. This time electing to use a 29 mm EEA stapler , I placed a pursestring on the distal colon. The firing anvil was placed into this. The stapler was brought through the new rectal stump and attached to the anvil. It was fired. A negative leak test was then performed x3. The pelvis was then irrigated with warm normal saline noting clear effluent in the suction canister. All instruments were then removed and passed off. A clean closure was then brought in. Gowns, gloves, and new drapes and instruments were brought into the field. I turned my attention toward closing the midline fascia, which was done with a #1 PDS. The subcutaneous tissue was then irrigated with sterile saline. The skin was closed with cuca. The 2 supra and infra laparoscopic port sites were then closed with Monocryl. The stoma site was then reapproximated with a 2-0 Vicryl pursestring to significantly close the defect. It was then filled with Fany, Hydrofera Blue , and a sterile dressing. The patient was then extubated in the operative suite and taken to the PACU in satisfactory condition. COUNTS: All counts were reported as correct x2. /[id number]/MODL MTDD
--- NOTE | 2017-11-02 13:45 | PDMN ---
Medical Necessity Medical necessity: [facility] General Surgery,CPT [id number], Laparoscopic converted to open colostomy takedown; medicare inpt only, 5 days
--- NOTE | 2017-11-02 16:31 | SOAPPROG ---
SOAP Progress Note Assessment/Plan: Assessment/Plan: - 72yo F s/p colostomy TD - pain controlled, pain is mostly from kim and not incisional - tolerating CLD - has been OOB, maybe a walk tonight. Excited to ambulate - labs in AM, PT/OT 11/02/17 16:29 Subjective: pain from kim, otherwise doing well. Objective: Vital Signs Temp Pulse Resp BP Pulse Ox 36.4 C 59 L 14 130/80 H 98 11/02/17 14:29 11/02/17 15:30 11/02/17 15:30 11/02/17 15:30 11/02/17 15:30 Laboratory Results 11/02/17 07:20 11/02/17 07:20 11/01/17 11/02/17 11/03/17 05:59 05:59 05:59 Intake Total 1160 Output Total 300 Balance 860 ICD10 Worksheet Patient Problems: Problems Problem Status Onset Abdominal pain Acute Chest pain Acute Paroxysmal SVT (supraventricular tachycardia) Acute Paroxysmal VT Acute
[2017-11-02] MEDS: ATORVASTATIN CALCIUM 10 MG TAB PO SCH (17:30)
[2017-11-02] MEDS: oxyCODONE IR 5 MG TAB PO PRN (17:30)
[2017-11-02] MEDS: ceFAZolin 2 GM/DEXTROSE 100 ML IV SCH ×2 (17:31→21:23)
[2017-11-02] MEDS ORDERED: NON-FORMULARY NEW DRUG (Simvastatin [Zocor 20 Mg] 20 MG) PO SCH (18:30)
[2017-11-02] MEDS: SOTALOL HCL 80 MG TAB PO SCH (19:47)
[2017-11-03] MEDS: oxyCODONE IR 5 MG TAB PO PRN ×5 (00:33→22:44)
[2017-11-03] MEDS: ceFAZolin 2 GM/DEXTROSE 100 ML IV SCH (05:07)
[2017-11-03 05:40] LABS: PLATELET COUNT 243 10^3/uL (150-400)
[2017-11-03] MEDS: amLODIPine BESYLATE 5 MG TAB PO SCH (08:24)
[2017-11-03] MEDS: HYDROCHLOROTHIAZIDE 25 MG TAB PO SCH (08:25)
[2017-11-03] MEDS: SOTALOL HCL 80 MG TAB PO SCH ×2 (08:25→20:00)
[2017-11-03] MEDS: LISINOPRIL 40 MG TAB PO SCH (08:25)
--- NOTE | 2017-11-03 12:38 | ASMTCMCOM ---
CM Note CM Note Notes: Chart reviewed. 72 year old female here for ostomy take down, per therapy notes she is medically cleared for home from their perspective. No current needs identified CM available should needs arise. Plan: Likely home no needs. Date Signed: 11/03/2017 12:37 PM Electronically Signed By:Opal Triplett RN
[2017-11-03] MEDS: ATORVASTATIN CALCIUM 10 MG TAB PO SCH (17:54)
[2017-11-04] MEDS: amLODIPine BESYLATE 5 MG TAB PO SCH (07:47)
[2017-11-04] MEDS: HYDROCHLOROTHIAZIDE 25 MG TAB PO SCH (07:48)
[2017-11-04] MEDS: SOTALOL HCL 80 MG TAB PO SCH ×2 (07:50→20:16)
[2017-11-04] MEDS: LISINOPRIL 40 MG TAB PO SCH (07:50)
[2017-11-04] MEDS: ACETAMINOPHEN 325 MG TAB PO PRN ×4 (07:53→20:16)
--- NOTE | 2017-11-04 08:51 | SOAPPROG ---
SOAP Progress Note Assessment/Plan: Assessment/Plan: - 72yo F s/p colostomy TD - VSS, HDS - pain controlled, transitioning to PO - abdomen is soft, passing flatus. Will ADAT - ambulate, PT/OT - hopefully home in the next day or so 11/02/17 16:29 11/04/17 08:50 Subjective: feels well, passing flatus. Objective: Vital Signs Temp Pulse Resp BP Pulse Ox 36.7 C 76 16 138/66 H 93 11/04/17 07:38 11/04/17 07:38 11/04/17 07:38 11/04/17 07:38 11/04/17 07:38 Laboratory Results 11/03/17 05:12 11/03/17 05:12 11/03/17 11/04/17 11/05/17 05:59 05:59 05:59 Intake Total 4398 1250 Output Total 1300 3800 Balance 3098 -2550 ICD10 Worksheet Patient Problems: Problems Problem Status Onset Abdominal pain Acute Chest pain Acute Paroxysmal SVT (supraventricular tachycardia) Acute Paroxysmal VT Acute
[2017-11-04] MEDS: ATORVASTATIN CALCIUM 10 MG TAB PO SCH (17:22)
[2017-11-05] MEDS: ACETAMINOPHEN 325 MG TAB PO PRN ×4 (02:09→21:51)
[2017-11-05] MEDS: LISINOPRIL 40 MG TAB PO SCH (07:58)
[2017-11-05] MEDS: SOTALOL HCL 80 MG TAB PO SCH ×2 (07:59→20:21)
[2017-11-05] MEDS: amLODIPine BESYLATE 5 MG TAB PO SCH (07:59)
[2017-11-05] MEDS: HYDROCHLOROTHIAZIDE 25 MG TAB PO SCH (07:59)
--- NOTE | 2017-11-05 08:32 | SOAPPROG ---
SOAP Progress Note Assessment/Plan: Assessment: 72 y/o F s/p colostomy takedown POD #3 S: Tolerating regular diet, although has been taking it slow and does not have much of an appetite. Still passing gas and had one small BM. Pain very well controlled. Thinks she would like to stay one more night. O: Alert Afebrile RRR No increased WOB Abdomen: Soft, nontender, slightly distended, dressings taken down today. No dressing needed over incision. Incision is cdi. Allevyn placed over previous colostomy site. Plan: Dispo home tomorrow. 11/05/17 08:30 Objective: Vital Signs Temp Pulse Resp BP Pulse Ox 36.8 C 59 L 16 163/85 H 92 11/05/17 07:51 11/05/17 07:51 11/05/17 07:51 11/05/17 07:51 11/05/17 07:51 Laboratory Results 11/03/17 05:12 11/03/17 05:12 11/04/17 11/05/17 11/06/17 05:59 05:59 05:59 Intake Total 1250 2140 Output Total 3800 5000 Balance -2550 -2860 ICD10 Worksheet Patient Problems: Problems Problem Status Onset Abdominal pain Acute Chest pain Acute Paroxysmal SVT (supraventricular tachycardia) Acute Paroxysmal VT Acute
[2017-11-05] MEDS: ATORVASTATIN CALCIUM 10 MG TAB PO SCH ×2 (17:50→17:51)
[2017-11-06 08:54] VITALS: BP 171/82
[2017-11-06] MEDS: LISINOPRIL 40 MG TAB PO SCH (09:23)
[2017-11-06] MEDS: amLODIPine BESYLATE 5 MG TAB PO SCH (09:23)
[2017-11-06] MEDS: HYDROCHLOROTHIAZIDE 25 MG TAB PO SCH (09:23)
[2017-11-06] MEDS: SOTALOL HCL 80 MG TAB PO SCH (09:23)
== END 2017-11-06 10:24 | disposition home or self-care (01) | DRG 346 ==
LOC: F3E 06:51
PROVIDERS: ADMIT Surgery; ATTEND Surgery
DX: Z43.3 Encounter for attention to colostomy (principal); Z53.31 Laparoscopic surgical procedure converted to open procedure; I48.91 Unspecified atrial fibrillation; I10 Essential (primary) hypertension; E78.5 Hyperlipidemia, unspecified
CPT/HCPCS: 97161-GP; 97165-GO; G8978-GP-CH; G8979-GP-CH; G8980-GP-CH; G8987-GO-CI; G8988-GO-CI; G8989-GO-CI; J0171; J0690; J1100; J2370; J2405; J2704; J3010

== ENCOUNTER 2018-04-16 12:17 | Observation (INO) | payer OTHER ==
[2018-04-16 12:53] LABS: PLATELET COUNT 292 10^3/uL (150-400)
[2018-04-16] MEDS ORDERED: ASPIRIN 325 MG TAB PO ONE (13:22)
--- NOTE | 2018-04-16 13:22 | EDPHY ---
H & P Time Seen by Provider: 04/16/18 12:57 HPI/ROS: CHIEF COMPLAINT: Chest pain HISTORY OF PRESENT ILLNESS: The patient is a 72-year-old female who presents emergency department with substernal chest pressure starting at 9:00 a.m. This morning. The patient has recent history includes being admitted for atrial fibrillation in June 2017. At that time she was started on sotalol. She states that her atrial fibrillation has been well controlled since that time. In July of 2017 the patient developed a small-bowel obstruction and peritonitis. This required colectomy. This was taken down in October of 2017. The patient saw Dr. Ramesh 2 weeks ago in his office. She states her evaluation was unremarkable. This morning at 9:00 a.m. She developed substernal chest pressure. This radiated with a pressure to her neck. It lasted for approximately 1 hr. Is now resolved. She had no associated shortness of breath or cough. No fevers or chills. No leg pain or swelling. No recent travel. REVIEW OF SYSTEMS: 10 systems were reveiwed and are negative with the exception of the elements mentioned in the history of present illness. Past Medical/Surgical History: Includes small-bowel obstruction, peritonitis, hyperlipidemia, atrial fibrillation, cataracts Past surgical history: Includes tubal ligation, appendectomy, tonsillectomy, colectomy Social history: Patient does not smoke. She is here with her . Smoking Status: Never smoked Physical Exam: Vitals noted. . GENERAL: Well-appearing, in no acute distress, alert. HEENT: Eyes normal to inspection, normal pharynx, no signs of dehydration. NECK: Normal, supple. RESPIRATORY: Clear to auscultation bilaterally, no rales, rhonchi or wheezing. Chest wall: No discoloration. No tenderness palpation CVS: Regular rate and rhythm, no rubs, murmurs, or gallops. ABDOMEN: Soft, nontender, nondistended, no organomegaly. BACK: Normal to inspection, no CVA tenderness. SKIN: Normal color, no rash, warm, dry. No pallor. EXTREMITIES: No pedal edema, no calf tenderness, no Homans sign or cords, no joint swelling. NEURO/PSYCH: Alert and oriented, normal mood and affect, normal motor sensory exam. No obvious cranial nerve deficit. Constitutional: Initial Vital Signs Temperature (C) 36.4 C 12/03/18 12:38 Heart Rate 59 L 04/16/18 12:38 Respiratory Rate 18 04/16/18 12:38 Blood Pressure 202/87 H 04/16/18 12:38 O2 Sat (%) 96 04/16/18 12:38 O2 Delivery Mode Room Air Allergies/Adverse Reactions: No Known Allergies Allergy (Verified 04/16/18 12:38) Home Medications: Medication Instructions Recorded Lisinopril [Zestril 40 mg (*)] 40 mg PO DAILY 07/02/13 Simvastatin [Zocor 20 mg] 20 mg PO DAILY@1830 07/02/13 amLODIPine BESYLATE [Norvasc 5 mg 5 mg PO DAILY 07/02/13 (*)] Hydrochlorothiazide 12.5 mg PO DAILY 06/29/17 Apixaban [Eliquis] 5 mg PO BID 07/13/17 Sotalol HCl [Betapace 80 MG (*)] 80 mg PO BID 07/13/17 Acetaminophen [Tylenol 325mg (*)] 325 mg PO DAILY PRN 10/31/17 oxyCODONE IR [Oxycodone Ir (*)] 5 - 10 mg PO Q4HRS PRN #20 tab 11/05/17 Amlodipine Besylate 04/16/18 Medical Decision Making - Diagnostics Imaging Results: Imaging Impressions Chest X-Ray 04/16/18 13:18 Impression: Negative chest. ED Course/Re-evaluation: In the emergency department I discussed possible etiologies with the patient and . I answered all her questions. Patient was given aspirin orally. She had laboratory studies, EKG and chest x-ray ordered. Patient's CBC and chemistry unremarkable. Troponin is negative. EKG shows normal sinus rhythm, normal rate, normal axis, normal intervals. VPC. There are no ST or T-wave abnormalities. EKG is normal as interpreted by me. Discussed case with Dr. Mcelroy from Cardiology. He offered the patient admission. However, patient was unsure if she want admission and asked for time. I rechecked the patient. She had no new complaints of chest pain. On re- evaluation she agreed to admission. She will be evaluated by Dr. Mcelroy. She will be admitted to the hospitalist service. Repeat EKG unchanged. [facility] Discussed the case with the hospitalist service Dr. Saldivar. She will admit the patient. I also discussed the plan with Dr. Mcelroy. Differential Diagnosis: My differential includes but is not limited to ACS, acute UT, pericarditis, myocarditis, PE, pneumonia, bronchitis, CHF - Data Points Laboratory Results: Laboratory Results 04/16/18 12:40 12 12:40 04/16/18 12 12 13:13 12:40 12:40 WBC RBC Hgb Hct MCV MCH MCHC RDW Plt Count MPV Neut % (Auto) Lymph % (Auto) [place] % (Auto) Eos % (Auto) Baso % (Auto) Nucleat RBC Rel Count Absolute Neuts (auto) Absolute Lymphs (auto) Absolute Monos (auto) Absolute Eos (auto) Absolute Basos (auto) Absolute Nucleated RBC Immature Gran % Immature Gran # PT 13.2 SEC SEC (12.0-15.0) INR 0.98 (0.83-1.16) APTT 27.5 SEC SEC (23.0-38.0) D-Dimer < 0.27 ug/mLFEU ug/mLFEU (0.00-0.50) Sodium Potassium Chloride Carbon Dioxide Anion Gap BUN Creatinine Estimated GFR Glucose Calcium POC Troponin I 0.00 ng/mL ng/mL (0.00-0.08) NT-Pro-B Natriuret Pep 205 pg/mL H pg/mL (0-125) 04/16/18 04/16/18 12:40 12:40 WBC 6.38 10^3/uL 10^3/uL (3.80-9.50) RBC 5.02 10^6/uL 10^6/uL (4.18-5.33) Hgb 14.8 g/dL g/dL (12.6-16.3) Hct 44.5 % % (38.0-47.0) MCV 88.6 fL fL (81.5-99.8) MCH 29.5 pg pg (27.9-34.1) MCHC 33.3 g/dL g/dL (32.4-36.7) RDW 13.0 % % (11.5-15.2) Plt Count 292 10^3/uL 10^3/uL (150-400) MPV 9.7 fL fL (8.7-11.7) Neut % (Auto) 56.0 % % (39.3-74.2) Lymph % (Auto) 33.7 % % (15.0-45.0) [place] % (Auto) 7.5 % % (4.5-13.0) Eos % (Auto) 1.7 % % (0.6-7.6) Baso % (Auto) 0.9 % % (0.3-1.7) Nucleat RBC Rel Count 0.0 % % (0.0-0.2) Absolute Neuts (auto) 3.57 10^3/uL 10^3/uL (1.70-6.50) Absolute Lymphs (auto) 2.15 10^3/uL 10^3/uL (1.00-3.00) Absolute Monos (auto) 0.48 10^3/uL 10^3/uL (0.30-0.80) Absolute Eos (auto) 0.11 10^3/uL 10^3/uL (0.03-0.40) Absolute Basos (auto) 0.06 10^3/uL 10^3/uL (0.02-0.10) Absolute Nucleated RBC 0.00 10^3/uL 10^3/uL (0-0.01) Immature Gran % 0.2 % % (0.0-1.1) Immature Gran # 0.01 10^3/uL 10^3/uL (0.00-0.10) PT INR APTT D-Dimer Sodium 140 mEq/L mEq/L (135-145) Potassium 4.1 mEq/L mEq/L (3.3-5.0) Chloride 102 mEq/L mEq/L (97-110) Carbon Dioxide 28 mEq/l mEq/l (22-31) Anion Gap 10 mEq/L mEq/L (6-14) BUN 17 mg/dL mg/dL (7-23) Creatinine 0.6 mg/dL mg/dL (0.6-1.0) Estimated GFR > 60 Glucose 98 mg/dL mg/dL (70-100) Calcium 9.8 mg/dL mg/dL (8.5-10.4) POC Troponin I NT-Pro-B Natriuret Pep Medications Given: Discontinued Medications Aspirin (Aspirin) 325 mg PO EDNOW ONE Stop: 04/16/18 13:23 Last Admin: 04/16/18 13:30 Dose: 325 mg Point of Care Test Results: Chemistry 04/16/18 13:13 POC Troponin I 0.00 ng/mL ng/mL (0.00-0.08) Departure - Departure Disposition: [facility] Inpatient Acute Clinical Impression: Chest pain Qualifiers: Chest pain type: unspecified Qualified Code(s): R07.9 - Chest pain, unspecified Condition: Good Referrals: Shyanne Mckeon MD [Primary Care Provider] - As per Instructions
[2018-04-16 13:27] LABS: INR 0.98 (0.83-1.16); PROTIME(PATIENT) 13.2 SEC (12.0-15.0)
--- NOTE | 2018-04-16 14:04 | CPEKG ---
Test Reason : OPEN Blood Pressure : / mmHG Vent. Rate : 054 BPM Atrial Rate : 054 BPM P-R Int : 156 ms QRS Dur : 101 ms QT Int : 478 ms P-R-T Axes : 021 048 044 degrees QTc Int : 453 ms Sinus rhythm Ventricular premature complex Confirmed by Andre Amaya ([id number]) on 04/16/2018 2:03:48 PM Referred By: Confirmed By:Andre Amaya
--- NOTE | 2018-04-16 14:31 | PDCONSULT ---
Coffee Sommelier Note: CC: chest pressure HPI: Patient is a 72 y/o female with history of atrial fibrillation (on Eliquis with [id number] score of 3), HTN, and HLP, who presents to the ER around noon with complaints of chest pressure. No chest pains have been noted. Location of the pressure was mid sub sternal. No radiation into shoulder, neck, or jaw. No dizziness. Symptoms began at about 0900 this morning. No symptoms similar in days prior. Initial troponin was zero. ECG without dynamic ST/T wave changes. Patient was seen bout two weeks ago by Dr. Gibson Ramesh with recommendations at that time to continue medical therapy as at present . Symptoms that she did note were nothing like atrial fibrillation episodes of the past. No abnormal bleeding or bruising has been noted with ongoing Eliquis therapy. Patient did exercise the day before without symptoms noted. ROS: Remainder of the 12 point review of systems was unremarkable PMHx: (1) HTN (2) HLP (3) No CAD (4) No DM (5) Atrial fibrillation SHx: no tobacco and alcohol abuse , at bedside NKDA Medications: (1) Eliquis 5 mg twice per day (2) HCTZ 12.5 mg (3) Amlodipine 5 mg (4) Simvastatin 20 mg (5) Sotalol 80 mg twice per day (6) Lisinopril 40 mg per day Vitals: as below HEENT: NCAT with PERRLA Neck: no JVD LUNGS: CTA bilaterally with no w/r/c COR: RRR without m/r/g, normal S1S2 no S3 ABD: soft EXT: no c/c/e, 2+ DP/PT/RAD NEURO: no focal deficits Troponin #1: normal ECG with normal sinus rhythm and no dynamic ST/T wave changes noted Assessment: 72 y/o female with complaints of chest pressure. No cardiac biomarker elevation. No dynamic ST/T wave changes on ECG. Plan: Two options were given to the patient A: 24 hour admission with rule out protocol (enzymes and ECG), and if negative, would proceed with MPI testing tomorrow morning. B: Second troponin, and if negative, arrangements for outpatient MPI testing. If return of symptoms, would have patient return to the ER for fallback on option A. Blood pressure elevation was noted to >200 mm Hg systolic. Would reassess this value (should the patient wish to go home), and address with medication manipulation. If she decides to stay in house, would reassess blood pressures tonight and in the morning to determine if changes are needed. Patient and are discussing what they would like to do.
[2018-04-16] MEDS ORDERED: ACETAMINOPHEN 325 MG TAB PO PRN (15:46)
[2018-04-16] MEDS ORDERED: ONDANSETRON 4 MG/2 ML VIAL IVP PRN (15:46)
[2018-04-16] MEDS ORDERED: PROMETHAZINE HCL 25 MG/ML INJ IVP PRN (15:46)
[2018-04-16] MEDS ORDERED: HYDROCODONE/APAP 5/325 TAB PO PRN (15:46)
[2018-04-16] MEDS ORDERED: NITROGLYCERIN 0.4 MG BTL SL PRN (15:46)
[2018-04-16] MEDS ORDERED: oxyCODONE IR 5 MG TAB PO PRN (15:46)
[2018-04-16] MEDS ORDERED: ONDANSETRON DISINTEGRATING 4 MG TAB PO PRN (15:46)
--- NOTE | 2018-04-16 15:55 | PDGENHP ---
History and Physical - Chief Complaint chest pressure - History of Present Illness 72 yo F with PMH of a fib as well as HTN, HLD and perforated diverticulitis requiring sigmoidectomy and end colostomy with takedown in November, presenting with chest pressure that began this am. She notes she was doing housework when a dull chest pressure began, substernally with some radiation to her neck and an associated sense of impending doom. She notes she has never had a similar sensation in the past. It lasted about one hour and resolved completely on it's own. She denies any recent changes in her health. She is on sotalol and has a chronically low heart rate. She does have HTN that is medically managed and per her report is generally under good control. History Information - Allergies/Home Medication List Allergies/Adverse Reactions: No Known Allergies Allergy (Verified 04/16/18 12:38) Home Medications: Lisinopril [Zestril 40 mg (*)] 40 mg PO DAILY 07/02/13 [Last Taken 11/02/17 0600 ] Simvastatin [Zocor 20 mg] 20 mg PO DAILY@1830 07/02/13 [Last Taken 07/13/17] amLODIPine BESYLATE [Norvasc 5 mg (*)] 5 mg PO DAILY 07/02/13 [Last Taken 06:00] Hydrochlorothiazide 12.5 mg PO DAILY 06/29/17 [Last Taken 07/13/17] Apixaban [Eliquis] 5 mg PO BID 07/13/17 [Last Taken 07/13/17 18:30] Sotalol HCl [Betapace 80 MG (*)] 80 mg PO BID 07/13/17 [Last Taken 11/02/17 06: 00] Acetaminophen [Tylenol 325mg (*)] 325 mg PO DAILY PRN 10/31/17 [Last Taken Unknown] Amlodipine Besylate 04/16/18 [Last Taken Unknown] I have personally reviewed and updated: family history, medical history, social history, surgical history Past Medical History: A fib, HTN, HLD - Past Medical History atrial fibrillation, hypertension, hyperlipidemia Additional medical history: perforated diverticulitis. VT - Surgical History Reports: appendectomy Additional surgical history: ex-lap, colectomy, end colostomy. colostomy takedown. tubal ligation - Family History Positive for: CAD (mother with AL x2, sister with AL and stent in her 60s) - Social History Smoking Status: Never smoked Alcohol Use: Occasionally Drug Use: None Additional social history: , lives independently with , 2 children and 2 grand children Review of Systems Review of Systems: ROS: 10pt was reviewed & negative except for what was stated in HPI & below Physical Exam Physical Exam: Temp Pulse Resp BP Pulse Ox 36.4 C 51 L 15 175/118 H 96 04/16/18 12:38 04/16/18 14:30 04/16/18 14:30 04/16/18 14:30 04/16/18 14:30 Constitutional: no apparent distress, appears nourished Eyes: PERRL, anicteric sclera Ears, Nose, Mouth, Throat: moist mucous membranes, hearing normal Cardiovascular: regular rate and rhythym, no murmur, rub, or gallop, No edema Respiratory: no respiratory distress, no rales or rhonchi, clear to auscultation Gastrointestinal: normoactive bowel sounds, soft, non-tender abdomen Genitourinary: no bladder tenderness Skin: warm, normal color Musculoskeletal: full muscle strength, no muscle tenderness Neurologic: AAOx3 Psychiatric: interacting appropriately, not anxious, not encephalopathic Lab Data & Imaging Review 04/16/18 12:40 04/16/18 12:40 WBC 6.38 10^3/uL (3.80-9.50) 04/16/18 12:40 RBC 5.02 10^6/uL (4.18-5.33) 04/16/18 12:40 Hgb 14.8 g/dL (12.6-16.3) 04/16/18 12:40 Hct 44.5 % (38.0-47.0) 04/16/18 12:40 MCV 88.6 fL (81.5-99.8) 04/16/18 12:40 MCH 29.5 pg (27.9-34.1) 04/16/18 12:40 MCHC 33.3 g/dL (32.4-36.7) 04/16/18 12:40 RDW 13.0 % (11.5-15.2) 04/16/18 12:40 Plt Count 292 10^3/uL (150-400) 04/16/18 12:40 MPV 9.7 fL (8.7-11.7) 04/16/18 12:40 Neut % (Auto) 56.0 % (39.3-74.2) 04/16/18 12:40 Lymph % (Auto) 33.7 % (15.0-45.0) 04/16/18 12:40 [place] % (Auto) 7.5 % (4.5-13.0) 04/16/18 12:40 Eos % (Auto) 1.7 % (0.6-7.6) 04/16/18 12:40 Baso % (Auto) 0.9 % (0.3-1.7) 04/16/18 12:40 Nucleat RBC Rel Count 0.0 % (0.0-0.2) 04/16/18 12:40 Absolute Neuts (auto) 3.57 10^3/uL (1.70-6.50) 04/16/18 12:40 Absolute Lymphs (auto) 2.15 10^3/uL (1.00-3.00) 04/16/18 12:40 Absolute Monos (auto) 0.48 10^3/uL (0.30-0.80) 04/16/18 12:40 Absolute Eos (auto) 0.11 10^3/uL (0.03-0.40) 04/16/18 12:40 Absolute Basos (auto) 0.06 10^3/uL (0.02-0.10) 04/16/18 12:40 Absolute Nucleated RBC 0.00 10^3/uL (0-0.01) 04/16/18 12:40 Immature Gran % 0.2 % (0.0-1.1) 04/16/18 12:40 Immature Gran # 0.01 10^3/uL (0.00-0.10) 04/16/18 12:40 PT 13.2 SEC (12.0-15.0) 04/16/18 12:40 INR 0.98 (0.83-1.16) 04/16/18 12:40 APTT 27.5 SEC (23.0-38.0) 04/16/18 12:40 D-Dimer < 0.27 ug/mLFEU (0.00-0.50) 04/16/18 12:40 Sodium 140 mEq/L (135-145) 04/16/18 12:40 Potassium 4.1 mEq/L (3.3-5.0) 04/16/18 12:40 Chloride 102 mEq/L (97-110) 04/16/18 12:40 Carbon Dioxide 28 mEq/l (22-31) 04/16/18 12:40 Anion Gap 10 mEq/L (6-14) 04/16/18 12:40 BUN 17 mg/dL (7-23) 04/16/18 12:40 Creatinine 0.6 mg/dL (0.6-1.0) 04/16/18 12:40 Estimated GFR > 60 04/16/18 12:40 Glucose 98 mg/dL (70-100) 04/16/18 12:40 Calcium 9.8 mg/dL (8.5-10.4) 04/16/18 12:40 POC Troponin I 0.00 ng/mL (0.00-0.08) 04/16/18 15:17 NT-Pro-B Natriuret Pep 205 pg/mL (0-125) H 04/16/18 12:40 Visualized and Interpreted Chest x-ray results: Yes Chest X-Ray results: no infiltrate Visualized and Interpreted EKG results: Yes EKG additional interpertation: sinus ye, PVC Assessment & Plan Assessment: Chest pain (Acute) 72 yo F with PMH of a fib, htn, hld presenting with 1 hour chest pressure # chest pressure: with associated sense of doom and radiation to neck, sxs resolved on their own. Patient with RFs including htn, hld, and family hx. Cardiology has been consulted and evaluated patient in ER. Plan for tele monitoring overnight, serial trops and serial ecg. If w/u remains negative overnight cardiology plans to proceed with MPI in am. Patient understands and is amenable to plan. # htn, uncontrolled: patient states her BP is generally well controlled and high likely due to stress/anxiety of being here, will monitor and start prn hydralazine, may require additional meds at dc if bp remains elevated # a fib: currently in sinus ye, on chronic AC, monitoring as above # hx of VT: on sotalol for that apparently, followed by Dr. Ramesh # HLD: continue statin # hx of perforated diverticulitis: s/p sigmoidectomy as well as colostomy and takedown, no issues since then # observation status Patient new to my care. Old records reviewed and summarized as above. Care plan reviewed with ER doctor as above.
--- NOTE | 2018-04-16 19:55 | CPEKG ---
Test Reason : OPEN Blood Pressure : / mmHG Vent. Rate : 048 BPM Atrial Rate : 048 BPM P-R Int : 155 ms QRS Dur : 098 ms QT Int : 503 ms P-R-T Axes : 040 037 040 degrees QTc Int : 450 ms Sinus bradycardia Ventricular premature complex Confirmed by Minnie Chavez ([id number]) on 04/16/2018 7:54:48 PM Referred By: Confirmed By:Minnie Chavez
[2018-04-16] MEDS: APIXABAN 5 MG TAB PO SCH (22:07)
[2018-04-16] MEDS: SOTALOL HCL 80 MG TAB PO SCH (22:07)
[2018-04-17] MEDS: APIXABAN 5 MG TAB PO SCH (08:41)
[2018-04-17] MEDS ORDERED: ASPIRIN 325 MG TAB PO SCH (09:00)
[2018-04-17] MEDS ORDERED: amLODIPine BESYLATE 5 MG TAB PO SCH (09:00)
[2018-04-17] MEDS ORDERED: LISINOPRIL 40 MG TAB PO SCH (09:00)
[2018-04-17] MEDS ORDERED: HYDROCHLOROTHIAZIDE 12.5 MG CAP PO SCH (09:00)
[2018-04-17] MEDS ORDERED: PSYLLIUM METAMUCIL 1 PKT PO SCH (10:00)
[2018-04-17] MEDS ORDERED: REGADENOSON 0.4 MG/5 ML SYR IVP ONE (11:27)
--- NOTE | 2018-04-17 12:30 | CPR ---
DATE OF PROCEDURE: 04/17/2018 PROCEDURE: Exercise nuclear stress test. INDICATION: The patient is a 72-year-old female who presented to the hospital with 1 hour of chest p ressure, which occurred when doing laundry. She is very active and denies any exertional chest disco mfort or exercise intolerance. PROCEDURE IN DETAIL: Consent was obtained. The patient was placed on continuous telemetry. Her res ting EKG revealed normal sinus rhythm without any ST-T wave changes to suggest ischemia. She exercis ed on the treadmill for 9 minutes without any associated symptoms. She developed 2 ventricular coupl ets in the first stage of exercise and then did not have any further ventricular ectopy until recover y. In recovery stage, she had rare PVCs. She had nonspecific ST changes with exertion. These were minimal and nondiagnostic. Her blood pressure at rest was 126/76 and peaked at 152/82. H er blood pressure returned to baseline within 5 minutes of recovery. PLAN: Await nuclear images. /[id number]/MODL
[2018-04-17] MEDS: SOTALOL HCL 80 MG TAB PO SCH (12:39)
[2018-04-17 12:52] VITALS: BP 152/75
--- NOTE | 2018-04-17 13:20 | PDCARPN ---
Cardiology Progress Note Chief Complaint: chest pressure Assessment/Plan: Assessment: 04-17-18 Patient doing well today. No events overnight. Chest pressure was noted in the ER yesterday prior to getting up to the floor. No elevation to cardiac biomarkers was noted overnight. Stress testing today with 9 minutes on the treadmill and no symptoms (Carrillo Treadmill Score was +9). Nuclear images are currently pending. No chest pains or pressure at present. No PND or orthopnea. 04-16-18 Patient is a 72 y/o female with history of atrial fibrillation (on Eliquis with [id number] score of 3), HTN, and HLP, who presents to the ER around noon with complaints of chest pressure. No chest pains have been noted. Location of the pressure was mid sub sternal. No radiation into shoulder, neck, or jaw. No dizziness. Symptoms began at about 0900 this morning. No symptoms similar in days prior. Initial troponin was zero. ECG without dynamic ST/T wave changes. Patient was seen bout two weeks ago by Dr. Gibson Ramesh with recommendations at that time to continue medical therapy as at present . Symptoms that she did note were nothing like atrial fibrillation episodes of the past. No abnormal bleeding or bruising has been noted with ongoing Eliquis therapy. Patient did exercise the day before without symptoms noted. Plan: (1) Contingent on findings of the MPI, would plan on discharge home (2) Given the symptoms that have been noted, would consider GI evaluation( outpatient) (3) Would have patient follow up with cardiology in the outpatient setting (in 1-2 weeks) Patient and were in agreement with these plans. Subjective: No cardiovascular complaints Reviewed/Discussed With: family, hospitalist Objective: Vital Signs (8 Hrs) Temp Pulse Resp BP Pulse Ox 04/17/18 12:00 36.7 C 56 L 22 H 152/75 H 94 04/17/18 08:41 166/82 H 04/17/18 08:36 36.8 C 45 L 16 208/109 H 97 Intake/Output (24 Hrs) 04/16/18 04/17/18 04/18/18 05:59 05:59 05:59 Intake Total 700 Balance 700 Intake: Oral (ml) 700 Other: Weight 59.1 kg Number of Voids Toilet 1 Result Diagrams: 04/16/18 12:40 04/16/18 12:40 Cardiac Labs: Cardiac Lab Results (72 Hrs) 04/17/18 04/16/18 04:08 21:56 Troponin I < 0.012 < 0.012 Telemetry: normal sinus rhythm - Physical Exam Constitutional: WDWN, healthy appearing, no apparent distress Eyes: PERRL, EOMI Ears, Nose, Mouth, Throat: moist mucous membranes Cardiovascular: regular rate and rhythm, no murmurs, no rubs, no gallops, pulses symmetric bilat, No jugular vein distention Peripheral Pulses: 2+: dorsalis-pedis (R), dorsalis-pedis (L) Respiratory: clear to auscultate bilat, no crackles, no wheezes Gastrointestinal: normoactive bowel sounds Skin: no rashes, no edema Neurologic: AAOx3, CN II-XII grossly intact Psychiatric: cooperative, interactive ICD10 Worksheet Patient Problems: Problems Problem Status Onset Chest pain Acute Abdominal pain Acute Paroxysmal SVT (supraventricular tachycardia) Acute Paroxysmal VT Acute
--- NOTE | 2018-04-17 13:52 | PDDCSUM ---
Discharge Summary Discharge Summary: Date of Admission: 04/16/2018 Date of Discharge: 04/17/2018 Consultants: cardiology (Real Mcelroy) Studies: 1. Exercise stress with MPI: no evidence of ischemia or infarct Discharge Diagnoses: 1. Non-cardiac chest pain 2. Sinus bradycardia 3. Atrial fibrillation on eliquis 4. H/o VT on sotalol 5. HTN 6. HLD 7. H/o perforated diverticulitis s/p sigmoidectomy Brief Hospital Course: 72 yo F with PMH of afib on chronic AC, htn, hld presented with 1 hour chest pressure. She was ruled out for ACS with serial troponins. A d-dimer was negative. Cardiology did see the patient in consultation. She underwent an exercise stress test with MPI per the chest pain protocol which was normal. She did not have any episodes of RVR or VT on telemetry and her symptoms did not recur. However, some sinus bradycardia was noted (HR 40-50s) which is has been ongoing since initiation of sotalol, per her report. She was asymptomatic with this. It was felt that her chest pain was likely GI related. Medications: Please refer to EMR for complete list. No changes were made. Follow Up Plan: 1. To see Dr Ramesh in 2-4 weeks 2. Follow up with PCP Physical Exam: Vitals and telemetry reviewed. Alert and oriented, bradycardic with regular rhythm, lungs clear, abdomen soft, no leg edema or JVD.
--- NOTE | 2018-04-17 15:01 | ASDISCHSUM ---
Discharge Information Plan Status:Home with No Needs Medically Cleared to Leave:04/16/2018 Discharge Date:04/16/2018 CM D/C Disposition:Home, Routine, Self-Care ADT D/C Disposition:Home, Routine, Self-Care Projected Discharge Date:04/16/2018 Transportation at D/C:Family Discharge Delay Reason: Follow-Up Date:04/16/2018 Discharge Slot: Final Diagnosis:Bradycardia Placement Information Patient Contact Information Contact Name:AP Relationship:Kayla Address:[address] City:[place] Alternate Phone: [facility]/Zip Code:[place] [address] Email: Financial Information Financial Class:Medicare Advantage Plans Primary Plan Desc:[facility] [employer]ANS Primary Plan Number:[id number] Secondary Plan Desc: Secondary Plan Number: Assessment Information LACE LACE Length of stay for Answers: Less than 1 day current admission Acuity / Level of Answers: No Care: Did the patient have an inpatient admission? Comorbidities - select Answers: Other Notes: AFib; HLD; HTN all that apply # of Emergency department Answers: 1-2 visits in the last 6 months Score: 2 Date Signed: 04/17/2018 03:01 PM Electronically Signed By:Cassy Luis Case Management Discharge Plan Note Case Management Discharge Discharge Order Complete? Answers: Yes Patient to Obtain Answers: via Family Medications Transportation Arranged Answers: Family/Friends Transport will Pick (Date 04/17/2018 12:00 AM & Time) Family Notified Answers: Yes Notes: in room Discharge Comments Notes: Discussed pt in rounds and spoke with pt and in the room. Pt to discharge independently and comfortable with this plan. No CM needs noted at this time. Intervention Information
[2018-04-17] MEDS ORDERED: ATORVASTATIN CALCIUM 10 MG TAB PO SCH (18:30)
== END 2018-04-17 15:06 | disposition home or self-care (01) ==
LOC: F2W 16:51
PROVIDERS: ADMIT Internal Medicine; ATTEND Internal Medicine
DX: R07.9 Chest pain, unspecified (principal); I10 Essential (primary) hypertension; E78.5 Hyperlipidemia, unspecified; I48.91 Unspecified atrial fibrillation; Z79.01 Long term (current) use of anticoagulants; Z87.19 Personal history of other diseases of the digestive system; Z82.49 Family history of ischemic heart disease and other diseases of the circulatory system; Z90.49 Acquired absence of other specified parts of digestive tract
CPT/HCPCS: 71046; 78452; 93005; 93017; 99285; A9500; G0378; 84484-PO; J2785

== ENCOUNTER → 2018-05-21 | Outpatient (CLI) | payer OTHER | LOC: FIMAGING 08:46 | PROVIDERS: ATTEND Internal Medicine | DX: Z12.31 Encounter for screening mammogram for malignant neoplasm of breast (principal) ==

== ENCOUNTER 2018-06-24 18:14 | Observation (INO) | payer OTHER ==
[2018-06-24] MEDS ORDERED: NS 500 ML IV ONE (18:17)
[2018-06-24 18:45] LABS: PLATELET COUNT 317 10^3/uL (150-400)
[2018-06-24] MEDS ORDERED: LORazepam 2 MG/ML INJ ONE (18:49)
[2018-06-24] MEDS ORDERED: LORazepam 2 MG/ML INJ IVP ONE (18:53)
--- NOTE | 2018-06-24 18:53 | EDPHY ---
H & P Time Seen by Provider: 06/24/18 18:16 HPI/ROS: HPI History of arrhythmia. Palpitations. Seizure-like activity. 72-year-old female by ambulance. Her is with her. This patient has a history of atrial fibrillation and ventricular tachycardia. She was admitted to the hospital about a year ago for this. On discharge she was placed on sotalol and Eliquis. Her truck and transport mechanic at that time was Dr. Ruiz. Recently she has had problems with bradycardia at a heart rate in the 40s. It was determined by her new truck and transport mechanic, Dr. Ramesh to wean her off of the sotalol. Her last dose of sotalol was on June 10. She reports that starting a week to 10 days ago she started developing palpitations. She describes these as brief and sudden-onset and feeling like her heart is beating fast and hard. She reports that she saw Dr. Ramesh regarding this about a week ago and had a remote monitor place. She reports today these episodes have been more frequent and longer in duration. She reports prior to coming to the emergency department she had such an episode and describes also having seizure-like activity. She describes this as shaking in her hands legs and arms and her jaw being clenched. She was aware that this was happening and was trying to communicate to her during this event. She spoke to Guillermina Mcnulty for cardiology service was told to come to the emergency department for evaluation. ROS: Constitutional: No fever, no chills. As above. Eyes: No discharge. No changes in vision. ENT: No sore throat. No nasal congestion or rhinorrhea. Respiratory: No cough. No shortness of breath. Cardiac: No chest pain, as above. Gastrointestinal: No abdominal pain, no vomiting, no diarrhea. Genitourinary: No hematuria. No dysuria or increased frequency with urination. Musculoskeletal: No back pain. No neck pain. No myalgias or arthralgias. Skin: No rashes. Neurological: No headache. No focal weakness or altered sensation. Past medical history: As above and includes hyperlipidemia, hypertension, appendectomy, tonsillectomy. Medications currently include lisinopril, amlodipine, HCTZ, statin. Social history: Nonsmoker. Here with her . No alcohol. Physical Exam: General Appearance: Alert, no distress. This patient is responding to questions appropriately and in full sentences. This patient appears well- hydrated and well-nourished. Eyes: Pupils equal and round no pallor or injection. No lid edema, erythema or injection. ENT, Mouth: Mucous membranes are moist. The pharyngeal tissues are unremarkable. No edema or swelling. No asymmetry suggestive of abscess. No erythema or exudates. No tongue lacerations or contusions. Respiratory: There are no retractions, lungs are clear to auscultation with good air movement bilaterally. Cardiovascular: Irregular rate and rhythm. No murmur appreciated. PVCs noted on the monitor. Gastrointestinal: Abdomen is soft and nontender, no masses, bowel sounds normal. No focal tenderness at McBurney's point. No Ramos sign. Neurological: Motor sensory function is grossly intact. Cranial nerves are normal. Cerebellar function is normal. Skin: Warm and dry, no rashes. Musculoskeletal: Neck is supple and nontender. Extremities are symmetrical. All joints range without pain or impingement. Psychiatric: No agitation. No depression. Database: EKG: EKG time is 6:59 p.m.; EKG shows a narrow complex normal sinus rhythm with a ventricular rate of 76. Multiple PACs and PVCs noted. The TX, QRS, QT intervals are within normal limits. There are no ST-T wave changes indicative of ischemic or injury pattern. No evidence of right heart strain. Interpreted by me. Imaging: Procedures: Emergency department course: Triage vital signs reviewed. She is mildly hypertensive. Triage vital signs are otherwise unremarkable. She is somewhat anxious. After my evaluation she had 1 of these episodes of seizure-like activity. She was communicating with me. I put my hand on her forehead and asked her to calm and these tremors resolved. She will be given 0.5 mg of IV Ativan. She was placed on a secured entrance monitor. She was started on IV normal saline with 500 cc to be given over the next 1-2 hours. EKG was obtained and reviewed by myself. 7:45 p.m., the patient was re-evaluated. She is resting comfortably at this time. No further pseudo seizure activity. Results of her emergency department workup were discussed with her . Plan for admission reviewed. All of their questions were answered. Hospitalist paged. 8:10 p.m., discussed case with on-call hospitalist. Case discussed in detail. Patient accepted for admission to telemetry observation. 8:20 p.m., spoke with on-call truck and transport mechanic Dr. Guillermina Mcnulty who spoke with this patient earlier this evening. She will consult on further management of this patient. The patient was admitted to telemetry observation in stable condition. Differential Diagnosis: The differential diagnosis on this patient includes but is not limited to PVCs, PACs, atrial fibrillation, anxiety reaction, pseudoseizures. This represents a partial list of diagnoses considered. These considerations are based on history , physical exam, past history, reassessment and diagnostic testing. Smoking Status: Never smoked Constitutional: Initial Vital Signs Temperature (C) 36.7 C 06/24/18 18:25 Heart Rate 86 06/24/18 18:25 Respiratory Rate 22 H 06/24/18 18: Blood Pressure 153/105 H 06/24/18 18:25 O2 Sat (%) 94 06/24/18 18:25 O2 Delivery Mode Room Air O2 (L/minute) 3 Allergies/Adverse Reactions: No Known Allergies Allergy (Verified 06/24/18 19:10) Home Medications: Medication Instructions Recorded Apixaban [Eliquis] 5 mg PO BID 06/24/18 Hydrochlorothiazide 12.5 mg PO DAILY 06/24/18 Lisinopril [Zestril 40 mg (*)] 40 mg PO DAILY 06/24/18 Simvastatin 20 mg PO HS 06/24/18 amLODIPine BESYLATE [Norvasc 5 mg 5 mg PO DAILY 06/24/18 (*)] Medical Decision Making - Data Points Laboratory Results: Laboratory Results 06/24/18 18:40 06/24/18 18:40 06/24/18 06/24/18 06/24/18 18:40 18:40 18:36 WBC 7.84 10^3/uL 10^3/uL (3.80-9.50) RBC 4.94 10^6/uL 10^6/uL (4.18-5.33) Hgb 14.9 g/dL g/dL (12.6-16.3) Hct 43.6 % % (38.0-47.0) MCV 88.3 fL fL (81.5-99.8) MCH 30.2 pg pg (27.9-34.1) MCHC 34.2 g/dL g/dL (32.4-36.7) RDW 13.1 % % (11.5-15.2) Plt Count 317 10^3/uL 10^3/uL (150-400) MPV 10.3 fL fL (8.7-11.7) Neut % (Auto) 48.3 % % (39.3-74.2) Lymph % (Auto) 41.7 % % (15.0-45.0) Rowan % (Auto) 6.6 % % (4.5-13.0) Eos % (Auto) 2.2 % % (0.6-7.6) Baso % (Auto) 0.9 % % (0.3-1.7) Nucleat RBC Rel Count 0.0 % % (0.0-0.2) Absolute Neuts (auto) 3.79 10^3/uL 10^3/uL (1.70-6.50) Absolute Lymphs (auto) 3.27 10^3/uL H 10^3/uL (1.00-3.00) Absolute Monos (auto) 0.52 10^3/uL 10^3/uL (0.30-0.80) Absolute Eos (auto) 0.17 10^3/uL 10^3/uL (0.03-0.40) Absolute Basos (auto) 0.07 10^3/uL 10^3/uL (0.02-0.10) Absolute Nucleated RBC 0.00 10^3/uL 10^3/uL (0-0.01) Immature Gran % 0.3 % % (0.0-1.1) Immature Gran # 0.02 10^3/uL 10^3/uL (0.00-0.10) Sodium 139 mEq/L mEq/L (135-145) Potassium 3.9 mEq/L mEq/L (3.5-5.2) Chloride 104 mEq/L mEq/L (97-110) Carbon Dioxide 27 mEq/l mEq/l (22-31) Anion Gap 8 mEq/L mEq/L (6-14) BUN 18 mg/dL mg/dL (7-23) Creatinine 0.7 mg/dL mg/dL (0.6-1.0) Estimated GFR > 60 Glucose 109 mg/dL H mg/dL (70-100) Calcium 9.8 mg/dL mg/dL (8.5-10.4) POC Troponin I 0.00 ng/mL ng/mL (0.00-0.08) Medications Given: Discontinued Medications Sodium Chloride (Ns) 500 mls @ 1,000 mls/hr IV EDNOW ONE PRN Reason: Protocol Stop: 06/24/18 18:46 Last Admin: 06/24/18 18:35 Dose: 500 mls Lorazepam (Ativan Injection) 0.5 mg IVP EDNOW ONE Stop: 06/24/18 18:54 Last Admin: 06/24/18 19:03 Dose: 0.5 mg Point of Care Test Results: Chemistry 06/24/18 18:36 POC Troponin I 0.00 ng/mL ng/mL (0.00-0.08) Departure - Departure Disposition: [facility] Inpatient Acute Clinical Impression: Pseudoseizures, Palpitations
[2018-06-24] MEDS ORDERED: ATORVASTATIN CALCIUM 10 MG TAB PO SCH (21:00)
--- NOTE | 2018-06-24 21:46 | PDGENHP ---
History and Physical - Chief Complaint shaking and racing heart - History of Present Illness patient is a 72 year old female with pmh of afib, HTN, HLD who presented to the Er with complaints of racing heart and shaking all over. She has a history of afib and is currently wearing a 30 day event monitor. Today she noticed that she felt like her heart was racing and so triggered her monitor. She then called her warehouse assistant who called the monitor company to get a report. They patient then developed a shaking or shivering sensation in her legs, all over her body including her teeth chattering and her eyes blinking. she says through this episode she has remained totally conscious. They told their warehouse assistant about this and the doc told her to come to the ER. she says that this shaking sensation has happened 5 times total today. Episodes last a minute or two and then resolve. she is totally awake and alert through them. She has had no loss of bowel or bladder. she does not feel post ictal or confused afterwards. she has never had seizures or head trauma i nthe past. Otherwise she denied any NV, cp, or other symptoms. History Information - Allergies/Home Medication List Allergies/Adverse Reactions: No Known Allergies Allergy (Verified 06/24/18 19:10) Home Medications: Apixaban [Eliquis] 5 mg PO BID 06/24/18 [Last Taken 06/24/18 09:00] Hydrochlorothiazide 12.5 mg PO DAILY 06/24/18 [Last Taken 06/24/18] Lisinopril [Zestril 40 mg (*)] 40 mg PO DAILY 06/24/18 [Last Taken 06/24/18] Simvastatin 20 mg PO HS 06/24/18 [Last Taken 06/23/18] amLODIPine BESYLATE [Norvasc 5 mg (*)] 5 mg PO DAILY 06/24/18 [Last Taken ] I have personally reviewed and updated: family history, medical history, social history, surgical history Past Medical History: A fib, HTN, HLD - Past Medical History atrial fibrillation, hypertension, hyperlipidemia Additional medical history: perforated diverticulitis. VT - Surgical History Reports: appendectomy Additional surgical history: ex-lap, colectomy, end colostomy. colostomy takedown. tubal ligation - Family History Positive for: CAD (mother with VA x2, sister with VA and stent in her 60s) - Social History Smoking Status: Never smoked Additional social history: , lives independently with , 2 children and 2 grand children Review of Systems Review of Systems: ROS: 10pt was reviewed & negative except for what was stated in HPI & below Physical Exam Physical Exam: Temp Pulse Resp BP Pulse Ox 36.8 C 78 18 135/78 H 91 L 06/24/18 21:29 06/24/18 21:29 06/24/18 21:29 06/24/18 21:29 06/24/18 21:29 Constitutional: no apparent distress, appears nourished, not in pain Eyes: PERRL, anicteric sclera, EOMI Ears, Nose, Mouth, Throat: moist mucous membranes, hearing normal, ears appear normal, no oral mucosal ulcers Cardiovascular: regular rate and rhythym, no murmur, rub, or gallop, No edema Respiratory: no respiratory distress, no rales or rhonchi, clear to auscultation Gastrointestinal: normoactive bowel sounds, soft, non-tender abdomen, no palpable masses Genitourinary: no bladder fullness, no bladder tenderness Skin: warm, normal color, no rashes or abrasions, no fluctuance, no induration, No mottled Musculoskeletal: full muscle strength, no muscle tenderness, normal joint ROM, no joint effusions Psychiatric: interacting appropriately, not anxious, not encephalopathic, thought process linear Lymph, Heme, Immunologic: no cervical LAD, no supraclavicular LAD Lab Data & Imaging Review 06/24/18 18:40 06/24/18 18:40 WBC 7.84 10^3/uL (3.80-9.50) 06/24/18 18:40 RBC 4.94 10^6/uL (4.18-5.33) 06/24/18 18:40 Hgb 14.9 g/dL (12.6-16.3) 06/24/18 18:40 Hct 43.6 % (38.0-47.0) 06/24/18 18:40 MCV 88.3 fL (81.5-99.8) 06/24/18 18:40 MCH 30.2 pg (27.9-34.1) 06/24/18 18:40 MCHC 34.2 g/dL (32.4-36.7) 06/24/18 18:40 RDW 13.1 % (11.5-15.2) 06/24/18 18:40 Plt Count 317 10^3/uL (150-400) 06/24/18 18:40 MPV 10.3 fL (8.7-11.7) 06/24/18 18:40 Neut % (Auto) 48.3 % (39.3-74.2) 06/24/18 18:40 Lymph % (Auto) 41.7 % (15.0-45.0) 06/24/18 18:40 Hubbard % (Auto) 6.6 % (4.5-13.0) 06/24/18 18:40 Eos % (Auto) 2.2 % (0.6-7.6) 06/24/18 18:40 Baso % (Auto) 0.9 % (0.3-1.7) 06/24/18 18:40 Nucleat RBC Rel Count 0.0 % (0.0-0.2) 06/24/18 18:40 Absolute Neuts (auto) 3.79 10^3/uL (1.70-6.50) 06/24/18 18:40 Absolute Lymphs (auto) 3.27 10^3/uL (1.00-3.00) H 06/24/18 18:40 Absolute Monos (auto) 0.52 10^3/uL (0.30-0.80) 06/24/18 18:40 Absolute Eos (auto) 0.17 10^3/uL (0.03-0.40) 06/24/18 18:40 Absolute Basos (auto) 0.07 10^3/uL (0.02-0.10) 06/24/18 18:40 Absolute Nucleated RBC 0.00 10^3/uL (0-0.01) 06/24/18 18:40 Immature Gran % 0.3 % (0.0-1.1) 06/24/18 18:40 Immature Gran # 0.02 10^3/uL (0.00-0.10) 06/24/18 18:40 Sodium 139 mEq/L (135-145) 06/24/18 18:40 Potassium 3.9 mEq/L (3.5-5.2) 06/24/18 18:40 Chloride 104 mEq/L (97-110) 06/24/18 18:40 Carbon Dioxide 27 mEq/l (22-31) 06/24/18 18:40 Anion Gap 8 mEq/L (6-14) 06/24/18 18:40 BUN 18 mg/dL (7-23) 06/24/18 18:40 Creatinine 0.7 mg/dL (0.6-1.0) 06/24/18 18:40 Estimated GFR > 60 06/24/18 18:40 Glucose 109 mg/dL (70-100) H 06/24/18 18:40 Calcium 9.8 mg/dL (8.5-10.4) 06/24/18 18:40 POC Troponin I 0.00 ng/mL (0.00-0.08) 06/24/18 18:36 Assessment & Plan Assessment: Palpitations (Acute)- patient has a history of afib adn Vtach. she was previously on sotalol but this was stopped by Dr. Ramesh due to bradycardia. Now having episodes of palpitations. she recently developed episodes of palpitations. she was placed on a 30 day event monitor. Patient spoke to Guillermina Mcnulty who referred her to the ER. -cont eliquis -monitor on telemetry -cardiology to [place] in am Pseudoseizures- etiology uncertain at this point. she has no history of trauma, seizures, and she remains conscious through the entire episode. Doubt this represents actual epileptic seizures. -consult neurology -seizures precautions -ativan PRN HTN- cont HCTZ and cherise, and norvasc HLD- cont statin PPX- eliquis and scds Fluids- po Lytes- WNL Nutrition- cardiac diet Cor- Full dispo- observation for racing herat and possible seizures.
[2018-06-24] MEDS ORDERED: ONDANSETRON 4 MG/2 ML VIAL IVP PRN (22:11)
[2018-06-24] MEDS ORDERED: ACETAMINOPHEN 325 MG TAB PO PRN (22:11)
[2018-06-24] MEDS ORDERED: ONDANSETRON DISINTEGRATING 4 MG TAB PO PRN (22:11)
[2018-06-24] MEDS ORDERED: LORazepam 2 MG/ML INJ IVP PRN (22:39)
[2018-06-24] MEDS: APIXABAN 5 MG TAB PO SCH (22:45)
--- NOTE | 2018-06-24 22:49 | CPEKG ---
Test Reason : OPEN Blood Pressure : / mmHG Vent. Rate : 076 BPM Atrial Rate : 081 BPM P-R Int : 141 ms QRS Dur : 094 ms QT Int : 385 ms P-R-T Axes : 022 052 032 degrees QTc Int : 433 ms Sinus rhythm Multiple premature complexes, vent & supraven Confirmed by Kevyn Snyder ([id number]) on 06/24/2018 10:48:42 PM Referred By: Kevyn Snyder Confirmed By:Kevyn Snyder
[2018-06-25 04:26] LABS: PLATELET COUNT 254 10^3/uL (150-400)
[2018-06-25] MEDS ORDERED: LISINOPRIL 40 MG TAB PO SCH (09:00)
[2018-06-25] MEDS ORDERED: amLODIPine BESYLATE 5 MG TAB PO SCH (09:00)
[2018-06-25] MEDS ORDERED: HYDROCHLOROTHIAZIDE 12.5 MG CAP PO SCH (09:00)
[2018-06-25] MEDS: APIXABAN 5 MG TAB PO SCH (09:18)
--- NOTE | 2018-06-25 09:31 | GCON ---
[f rep st] CONSULTATION NEUROLOGIC CONSULTATION REFERRING PHYSICIAN: Jeremiah Cleveland MD HISTORY: The patient is a 72-year-old woman whom I am asked to see in neurologic consultation regard ing episodes of shaking of uncertain source. She has a history of cardiac problems outlined in the h istory and physical, but the specific reason I was asked to see her is an event that occurred yesterd ay. She was at home with her when she said she felt as though something was going to happen. She started to feel tremulousness in a symmetric fashion in her lower extremities and says that it symmetrically ascended up to her body, into her arms and into her jaw where she was rapidly opening a nd closing her mouth as if her teeth were chattering, and at the same time, she was also blinking but was fully conscious throughout and said she knew it was happening, and the only reason she did not t ry to speak to her is she thought she would bite her tongue. She is not sure exactly how duy g it lasted, but maybe 20 or 30 seconds. This prompted advice from Cardiology, Dr. Mcnulty, to go to [facility] Emergency Room. The patient had another brief episode after that, and then, an episode with the re scue squad for which she got benzodiazepine, and then, one more episode in the Emergency Department, which were all quite similar, she says, and at no point did she have altered awareness. Each time it started in a symmetric fashion with tremulousness in her legs and then ascended. She says that, man y years ago, she recalls being evaluated for hypertension and someone working her up for pheochromocy sharon and being told that it was borderline, but ultimately, they never made a formal diagnosis of dennis t. She has been under no unusual stress recently. From a subjective standpoint, she said these even ts are not associated with a sense of fear or doom, and she does not feel as if she is having a panic attack. She does not have flushing of the skin or diaphoresis. She had recently been treated for h er tachycardia syndrome with sotalol but has come off that and is wearing a 30-day monitor, but so fa r, no specific arrhythmias are being detected as a precipitant for this. She remembers, about a year ago, when she started having cardiac problems feeling very tremulous thro ughout her body, which she thought was probably just being fearful of what was happening. She has no prior history of any seizure activity. Her sister has had seizures, but that was following __ cerebral aneurysm. She has been admitted for observation and has not had any recurrent episodes after the one yesterday in the Emergency Department. PAST MEDICAL HISTORY: Atrial fibrillation, hypertension, diverticulitis. PAST SURGICAL HISTORY: She has had some surgeries. FAMILY HISTORY: Coronary disease in the family. SOCIAL HISTORY: She has no history of smoking. She has lived in [place] for 50 years. She is britta ied. REVIEW OF SYSTEMS: Unremarkable, except for that noted above. MEDICATION: Her current medications are: 1. Tylenol as needed. 2. Norvasc. 3. Eliquis. 4. Lipitor. 5. Microzide. 6. Zestril. 7. Zofran. 8. She was also on simvastatin at home which is not continued at the moment. ALLERGIES: No known allergies. PHYSICAL EXAM: VITAL SIGNS: Blood pressure is 146/87, pulse of 75, respirations 16, temperature 36. 8. GENERAL: She is well developed, in no acute distress. EYES: Clear. NECK: Supple. No bruits or masses. CARDIAC: Regular rate and rhythm. No murmur. EXTREMITIES: No cyanosis or edema. NEUR OLOGIC: She is alert and attentive with clear, fluent speech and normal cognition. She has a friend ly and calm affect and denies feeling anxious or depressed. Pupils are 1 mm and reactive. Extraocul ar movements intact. Normal facial sensation and strength. Palate elevates symmetrically. Tongue p rotrudes midline. Motor exam reveals normal muscle bulk and tone with 5/5 strength and no abnormal m ovements. Sensation is preserved for temperature and light touch. No ataxia on [id number]. Julius bart gait. Reflexes 1+ and symmetric. LABORATORY STUDIES: Unremarkable CBC and electrolytes. TSH is 2. IMPRESSION: Total unit time of 55 minutes. The patient has a history of what sounds like nonepilept ic seizure phenomena, or more accurately, generalized tremulousness. Although there is an evolution from her legs up her body to her arms and jaw, the bilaterality and lack of other typical features fo r a seizure with fully retained consciousness and awareness of the event makes it very unlikely to be epileptic event. It would be more likely a systemic discharge from elevated adrenaline levels. Thi s could, of course, be precipitated by anxiety, although she does not feel anxious and could arise in the setting of very rare entities, such as pheochromocytoma, which she said, many years ago, was bor derline in a workup but never confirmed. I do not think it is likely to represent serotonin syndrome as a manifestation of carcinoid. It is hard to link this directly to a primary cardiac disorder, an d I do not think her medication is likely to trigger this either. Therefore, I do not think she need s anti-seizure medication. I do not think EEG is indicated. From a neurologic standpoint, she can s imply follow up with me as needed. If events do continue, then, further workup through her primary c are or Endocrinology would be appropriate to consider. I would defer all that to hospitalist and Car diology and her primary care provider. Please contact me if there are any additional questions. /[id number]/MODL
[2018-06-25 11:49] VITALS: BP 139/79
--- NOTE | 2018-06-25 12:21 | HOSPPROG ---
Hospitalist Progress Note Assessment/Plan: Palpitations (Acute)- patient has a history of afib and Vtach. she was previously on sotalol but this was stopped by Dr. Ramesh due to bradycardia. Now having episodes of palpitations. she recently developed episodes of palpitations. she was placed on a 30 day event monitor. Patient spoke to Guillermina Mcnulty who referred her to the ER. -cont eliquis -monitor on telemetry, multiple PACs/PVCs noted -cardiology to eval this AM Pseudoseizures- etiology uncertain at this point. she has no history of trauma, seizures, and she remains conscious through the entire episode. Doubt this represents actual epileptic seizures. -Seen by neurology this believed to be pseudoseizures, no need for EEG, antiepileptics -seizures precautions -ativan PRN HTN- cont HCTZ and cherise, and norvasc HLD- cont statin PPX- eliquis and scds Fluids- po Lytes- WNL Nutrition- cardiac diet Cor- Full dispo- Pending cardiology recommendations Subjective: Patient reports no complaints this AM Objective: Vital Signs Temp Pulse Resp BP Pulse Ox 36.7 C 69 18 139/79 H 96 06/25/18 11:48 06/25/18 11:48 06/25/18 11:48 06/25/18 11:48 06/25/18 11:48 Laboratory Results 06/25/18 03:45 06/25/18 03:45 06/24/18 06/25/18 06/26/18 05:59 05:59 05:59 Intake Total 950 Output Total 1200 900 Balance -250 -900 - Physical Exam Constitutional: no apparent distress Eyes: PERRL Ears, Nose, Mouth, Throat: moist mucous membranes Cardiovascular: regular rate and rhythym, No edema Respiratory: no respiratory distress Gastrointestinal: soft, non-tender abdomen Skin: warm Musculoskeletal: full muscle strength Neurologic: AAOx3 Psychiatric: interacting appropriately ICD10 Worksheet Patient Problems: Problems Problem Status Onset Palpitations Acute Pseudoseizures Acute Abdominal pain Acute Chest pain Acute Paroxysmal SVT (supraventricular tachycardia) Acute Paroxysmal VT Acute
--- NOTE | 2018-06-25 13:08 | PDCARCONS ---
Cardiology Consult Reason for Consult: Palpitations. Chief Complaint: Palpitations, possible seizure. Requesting Physician: Dr. Marcus Nguyen. History of Present Illness: She is typically followed in our practice by Dr. Conrado Ramesh. Prior to that she had been followed by Dr. Ruiz. She has a history of atrial flutter. At 1 point , 1-1 conduction was documented. Historically she had been treated with sotalol however developed bradycardia with heart rates down into the 40s. As result this medication was weaned and ultimately discontinued about 2 weeks ago. A molebile telemetry patch was applied following cessation of the sotalol. Generally she has done well. Apparently, yesterday, she noted that her heart rate was a little faster than normal. She thought her pulse was in the 80s. Additionally, she felt periods of time where she would skipped heartbeat which was followed closely by very forceful cardiac contractions. As result, she contacted the on-call physician. When that physician called her back her stated that she was possibly having a seizure. As result, the patient was brought to the emergency department here. Here she has been stable. There have been no witnessed seizure activity. She notes that she had a sensation of shaking that ascended from her feet up into her upper extremities including her mouth and head. She also describes a feeling as if her teeth were chattering. She had no fever, chills or sweats. She was awake for this entire activity and was alert and oriented. She had no history of chest discomfort. She has never had a similar episode in the past. Overnight she has been monitored on telemetry with no arrhythmias. She has not had any recurrent events here. She has been seen by Neurology. It was thought that she was experiencing generalized tremors without seizure activity in that no further workup was warranted. We did contact History Information - Allergies/Home Medication List Allergies/Adverse Reactions: No Known Allergies Allergy (Verified 06/24/18 19:10) Home Medications: Apixaban [Eliquis] 5 mg PO BID 06/24/18 [Last Taken 06/24/18 09:00] Hydrochlorothiazide 12.5 mg PO DAILY 06/24/18 [Last Taken 06/24/18] Lisinopril [Zestril 40 mg (*)] 40 mg PO DAILY 06/24/18 [Last Taken 06/24/18] Simvastatin 20 mg PO HS 06/24/18 [Last Taken 06/23/18] amLODIPine BESYLATE [Norvasc 5 mg (*)] 5 mg PO DAILY 06/24/18 [Last Taken ] I have personally reviewed and updated: family history, medical history, social history, surgical history Past Medical History: - Surgical History Reports: no pertinent surgical hx Additional surgical history: Paroxysmal atrial fibrillation, hypertension, diverticulitis. - Family History Positive for: non-pertinent - Social History Smoking Status: Never smoked Physical Exam Physical Exam: Temp Pulse Resp BP Pulse Ox 36.7 C 69 18 139/79 H 96 06/25/18 11:48 06/25/18 11:48 06/25/18 11:48 06/25/18 11:48 06/25/18 11:48 Constitutional: no apparent distress, appears nourished, not in pain Eyes: PERRL, anicteric sclera, EOMI Ears, Nose, Mouth, Throat: moist mucous membranes, hearing normal, ears appear normal, no oral mucosal ulcers Cardiovascular: regular rate and rhythym, no murmur, rub, or gallop, No edema Respiratory: no respiratory distress, no rales or rhonchi, clear to auscultation Gastrointestinal: normoactive bowel sounds, soft, non-tender abdomen, no palpable masses Genitourinary: no bladder fullness, no bladder tenderness Skin: warm, normal color, no rashes or abrasions, no fluctuance, no induration, No mottled Musculoskeletal: full muscle strength, no muscle tenderness, normal joint ROM, no joint effusions Psychiatric: interacting appropriately, not anxious, not encephalopathic, thought process linear Lymph, Heme, Immunologic: no cervical LAD, no supraclavicular LAD Lab and Imaging 06/25/18 03:45 06/25/18 03:45 WBC 5.19 10^3/uL (3.80-9.50) 06/25/18 03:45 RBC 4.09 10^6/uL (4.18-5.33) L 06/25/18 03:45 Hgb 12.2 g/dL (12.6-16.3) L 06/25/18 03:45 Hct 36.4 % (38.0-47.0) L 06/25/18 03:45 MCV 89.0 fL (81.5-99.8) 06/25/18 03:45 MCH 29.8 pg (27.9-34.1) 06/25/18 03:45 MCHC 33.5 g/dL (32.4-36.7) 06/25/18 03:45 RDW 13.3 % (11.5-15.2) 06/25/18 03:45 Plt Count 254 10^3/uL (150-400) 06/25/18 03:45 MPV 10.0 fL (8.7-11.7) 06/25/18 03:45 Neut % (Auto) 41.6 % (39.3-74.2) 06/25/18 03:45 Lymph % (Auto) 44.1 % (15.0-45.0) 06/25/18 03:45 Mcclain % (Auto) 9.8 % (4.5-13.0) 06/25/18 03:45 Eos % (Auto) 3.1 % (0.6-7.6) 06/25/18 03:45 Baso % (Auto) 1.2 % (0.3-1.7) 06/25/18 03:45 Nucleat RBC Rel Count 0.0 % (0.0-0.2) 06/25/18 03:45 Absolute Neuts (auto) 2.16 10^3/uL (1.70-6.50) 06/25/18 03:45 Absolute Lymphs (auto) 2.29 10^3/uL (1.00-3.00) 06/25/18 03:45 Absolute Monos (auto) 0.51 10^3/uL (0.30-0.80) 06/25/18 03:45 Absolute Eos (auto) 0.16 10^3/uL (0.03-0.40) 06/25/18 03:45 Absolute Basos (auto) 0.06 10^3/uL (0.02-0.10) 06/25/18 03:45 Absolute Nucleated RBC 0.00 10^3/uL (0-0.01) 06/25/18 03:45 Immature Gran % 0.2 % (0.0-1.1) 06/25/18 03:45 Immature Gran # 0.01 10^3/uL (0.00-0.10) 06/25/18 03:45 Sodium 138 mEq/L (135-145) 06/25/18 03:45 Potassium 4.1 mEq/L (3.5-5.2) 06/25/18 03:45 Chloride 110 mEq/L (97-110) 06/25/18 03:45 Carbon Dioxide 26 mEq/l (22-31) 06/25/18 03:45 Anion Gap 2 mEq/L (6-14) L 06/25/18 03:45 BUN 16 mg/dL (7-23) 06/25/18 03:45 Creatinine 0.6 mg/dL (0.6-1.0) 06/25/18 03:45 Estimated GFR > 60 06/25/18 03:45 Glucose 91 mg/dL (70-100) 06/25/18 03:45 Calcium 8.9 mg/dL (8.5-10.4) 06/25/18 03:45 Phosphorus 4.0 mg/dL (2.5-4.5) 06/25/18 03:45 Magnesium 2.2 mg/dL (1.6-2.3) 06/25/18 03:45 POC Troponin I 0.00 ng/mL (0.00-0.08) 06/24/18 18:36 TSH 2.020 uIU/mL (0.465-4.680) 06/25/18 03:45 Visualized and Interpreted Chest x-ray results: No Visualized and Interpreted imaging results: No Visualized and Interpreted EKG results: Yes EKG additional interpertation: Normal sinus rhythm with occasional PACs and PVCs. Telemetry: Normal sinus rhythm. Echocardiogram: Not performed this hospitalization. A/P Assessment: This is a 72-year-old female with a history of paroxysmal atrial flutter previously treated with sotalol. This medication was discontinued several weeks ago. Currently she is wearing a [employer]ice monitor. Yesterday she experienced symptoms of palpitations which by description are consistent with atrial and ventricular extrasystoles. She had no symptoms that suggested recurrent atrial fibrillation or flutter. We did contact [employer]ice monitor and there was no indication of arrhythmia other than sinus tachycardia, PVCs and PACs. These extrasystoles were also noted on her electrocardiogram. Furthermore, yesterday, she experienced generalized tremors without seizure activity. The exact cause, at this time, is not entirely clear however she has been seen by Neurology who has not recommended any further workup. Plan: At this point, from a cardiovascular perspective, I think that she can be discharged home. I would like her to continue her [employer] monitor and to follow up with Dr. Ramesh as previously scheduled. I do not think she requires any further inpatient cardiovascular testing or therapies. Review of Systems Review of Systems: - Review of Systems Constitutional: no symptoms reported EENTM: no symptoms reported Respiratory: see HPI Cardiac: no symptoms reported, see HPI Gastrointestinal/Abdominal: no symptoms reported Genitourinary: no symptoms Musculoskelatal: no symptoms Skin: no symptoms Neurological: no symptoms Hematologic/Lymphatic: no symptoms reported Immunologic/allergic: no symptoms reported All Other Systems: Reviewed and Negative
--- NOTE | 2018-06-25 13:27 | PDDCSUM ---
Discharge Summary Discharge Summary: Date of Admission: 06/24/2018 Date of Discharge: 06/25/2018 Consults: Cardiology Followup: Cardiology, Dr. Ramesh Hospital Course Problem List: Palpitations (Acute)- patient has a history of afib and Vtach. she was previously on sotalol but this was stopped by Dr. Ramesh due to bradycardia. Now having episodes of palpitations. she recently developed episodes of palpitations. she was placed on a 30 day event monitor. Patient spoke to Guillermina Mcnulty who referred her to the ER. -cont eliquis -monitored on telemetry, multiple PACs/PVCs noted -cardiology consulted who recommend f/u with Dr. 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 she has no history of trauma, seizures, and she remains conscious through the entire episode. Doubt this represents actual epileptic seizures. -Seen by neurology this believed to be pseudoseizures, no need for EEG, antiepileptics -seizures precautions -ativan PRN HTN- cont HCTZ and cherise, and norvasc HLD- cont statin Time spent on discharge was >35 minutes with >50% of time spent on patient education and counseling.
--- NOTE | 2018-06-25 15:12 | ASMTDCNOTE ---
Case Management Discharge Discharge Order Complete? Answers: Yes Patient to Obtain Answers: via Family Medications Transportation Arranged Answers: Family/Friends Family Notified Answers: Yes Discharge Comments Notes: Pt admitted with palpitations, Afib, Vtach. & HTN. . Monitored over night and is discharging home with with no CM needs. Event monitor on for 30days and Pt to follow up with Guillermina Mcnulty. Date Signed: 06/25/2018 03:11 PM Electronically Signed By:CHAR Singer
--- NOTE | 2018-06-25 15:15 | ASDISCHSUM ---
Discharge Information Plan Status:Home with No Needs Medically Cleared to Leave:06/24/2018 Discharge Date:06/24/2018 CM D/C Disposition:Home, Routine, Self-Care ADT D/C Disposition: Projected Discharge Date:06/24/2018 Transportation at D/C:Family Discharge Delay Reason: Follow-Up Date:06/24/2018 Discharge Slot: Final Diagnosis: Placement Information Patient Contact Information Contact Name:AP Relationship:Kayla Address:[address] City:[place] Alternate Phone: State/Zip Code:[place] [address] Email: Financial Information Financial Class:Medicare Advantage Plans Primary Plan Desc:[facility] Primary Plan Number:[id number] Secondary Plan Desc: Secondary Plan Number: Assessment Information LACE LACE Length of stay for Answers: 1 day current admission Acuity / Level of Answers: No Care: Did the patient have an inpatient admission? Comorbidities - select Answers: Other Notes: AFib: HLD; HTN all that apply # of Emergency department Answers: 1-2 visits in the last 6 months Score: 3 Date Signed: 06/25/2018 03:13 PM Electronically Signed By:CHAR Singer Case Management Discharge Plan Note Case Management Discharge Discharge Order Complete? Answers: Yes Patient to Obtain Answers: via Family Medications Transportation Arranged Answers: Family/Friends Family Notified Answers: Yes Discharge Comments Notes: Pt admitted with palpitations, Afib, Vtach. & HTN. . Monitored over night and is discharging home with with no CM needs. Event monitor on for 30days and Pt to follow up with Guillermina Mcnulty. Date Signed: 06/25/2018 03:11 PM Electronically Signed By:CHAR Singer Intervention Information
== END 2018-06-25 15:32 | disposition home or self-care (01) ==
LOC: EDUNIT# → F2W 21:12
PROVIDERS: ADMIT Internal Medicine; ATTEND Internal Medicine
DX: R00.2 Palpitations (principal); I48.91 Unspecified atrial fibrillation; I47.1 Supraventricular tachycardia; E86.9 Volume depletion, unspecified; R56.9 Unspecified convulsions; R25.1 Tremor, unspecified; I10 Essential (primary) hypertension; E78.5 Hyperlipidemia, unspecified; Z87.19 Personal history of other diseases of the digestive system; Z82.49 Family history of ischemic heart disease and other diseases of the circulatory system; Z79.01 Long term (current) use of anticoagulants
CPT/HCPCS: 93005; 96374; 99285; G0378; J2060; 84484-ER

== ENCOUNTER → 2018-08-16 | Outpatient (CLI) | payer OTHER | LOC: FIMAGING 08:19 | PROVIDERS: ATTEND Surgery | DX: K43.2 Incisional hernia without obstruction or gangrene (principal) | CPT/HCPCS: 74177; Q9967 ==

== ENCOUNTER 2018-09-18 10:49 | Day surgery (SDC) | payer OTHER ==
--- NOTE | 2018-09-17 15:31 | PDGENHP ---
History and Physical - Chief Complaint ventral incisional hernia - History of Present Illness 72yo F known to me from previous perforated diverticulitis, s/p colostomy and subsequent take down presents with abdominal bulge. No obstructive symptoms History Information - Allergies/Home Medication List Allergies/Adverse Reactions: shellfish derived Allergy (Verified 09/14/18 11:25) Rash Home Medications: Apixaban [Eliquis] 06/24/18 [Last Taken 06/24/18 09:00] Hydrochlorothiazide 06/24/18 [Last Taken 06/24/18] Lisinopril [Zestril 40 mg (*)] 06/24/18 [Last Taken 06/24/18] Simvastatin 06/24/18 [Last Taken 06/23/18] amLODIPine BESYLATE [Norvasc 5 mg (*)] 06/24/18 [Last Taken 06/24/18] Metoprolol Tartrate 09/14/18 [Last Taken Unknown] I have personally reviewed and updated: family history, medical history, social history, surgical history Past Medical History: A fib, HTN, HLD - Past Medical History atrial fibrillation, hypertension, hyperlipidemia Additional medical history: perforated diverticulitis. VT - Surgical History Reports: no pertinent surgical hx Additional surgical history: Paroxysmal atrial fibrillation, hypertension, diverticulitis. - Family History Positive for: non-pertinent - Social History Smoking Status: Never smoked Additional social history: , lives independently with , 2 children and 2 grand children Review of Systems Review of Systems: ROS: 10pt was reviewed & negative except for what was stated in HPI & below Physical Exam Physical Exam: Constitutional: no apparent distress, appears nourished, not in pain Eyes: PERRL, anicteric sclera, EOMI Ears, Nose, Mouth, Throat: moist mucous membranes, hearing normal, ears appear normal, no oral mucosal ulcers Cardiovascular: regular rate and rhythym, no murmur, rub, or gallop, No edema Respiratory: no respiratory distress, no rales or rhonchi, clear to auscultation Gastrointestinal: normoactive bowel sounds, other (reducible lower midline ventral hernia ) Genitourinary: no bladder fullness, no bladder tenderness Skin: warm, normal color, no rashes or abrasions, no fluctuance, no induration, No mottled Musculoskeletal: full muscle strength, no muscle tenderness, normal joint ROM, no joint effusions Psychiatric: interacting appropriately, not anxious, not encephalopathic, thought process linear Lymph, Heme, Immunologic: no cervical LAD, no supraclavicular LAD Lab Data & Imaging Review Visualized and Interpreted imaging results: Yes Interpretation: CT: lower midline ventral hernia Assessment & Plan Assessment: 72yo F c reducible incisional hernia Plan: to OR for robotic assisted repair, RBA discussed
[2018-09-18] MEDS ORDERED: ceFAZolin 2 GM/DEXTROSE 100 ML IV ONE (11:28)
[2018-09-18] MEDS ORDERED: LR 1,000 ML IV ONE (11:28)
[2018-09-18] MEDS ORDERED: BUPIVACAINE/EPI 0.5% 30 ML SDV ONE (11:32)
[2018-09-18] MEDS ORDERED: PROPOFOL 200 MG/20 ML VIAL ONE (13:03)
[2018-09-18] MEDS ORDERED: fentaNYL 100 MCG/2 ML INJ ONE ×3 (13:03→14:46)
[2018-09-18] MEDS ORDERED: ROCURONIUM 50 MG/5 ML VIAL ONE (13:04)
[2018-09-18] MEDS ORDERED: ONDANSETRON 4 MG/2 ML VIAL ONE ×2 (14:25→14:46)
[2018-09-18] MEDS ORDERED: DEXAMETHASONE 4 MG/ML VIAL ONE (14:25)
--- NOTE | 2018-09-18 14:26 | POSTOPPROG ---
Post Op Note Date of Operation: 09/18/18 Surgeon: Kem Campa Quality Assurance Supervisor Trim: MAHOGANY Agrawal Anesthesiologist: Sona Anesthesia: GET(General Endotracheal) Pre-op Diagnosis: Ventral incisional hernia Post-op Diagnosis: same Procedure: robot assist incisional hernia repair with mesh Findings: 5cm defect, 9cm Symbotex mesh Inf/Abcess present in the surg proc area at time of surgery?: No EBL: Minimal
--- NOTE | 2018-09-18 14:52 | PDANEPAE ---
ANE History of Present Illness Robotic Hernia Repair ANE Past Medical History - Cardiovascular History Hx Hypertension: Yes Hx Arrhythmias: Yes Hx Chest Pain: No Hx Coronary Artery / Peripheral Vascular Disease: No Hx CHF / Valvular Disease: No Hx Palpitations: No Cardiovascular History Comment: a fib/flutter - ASYMPTOMATIC - Pulmonary History Hx COPD: No Hx Asthma/Reactive Airway Disease: No Hx Recent Upper Respiratory Infection: No Hx Oxygen in Use at Home: No Hx Sleep Apnea: No Sleep Apnea Screening Result - Last Documented: Negative - Neurologic History Hx Cerebrovascular Accident: No Hx Seizures: No Hx Dementia: No Neurologic History Comment: pseudoseizures - Endocrine History Hx Diabetes: No Endocrine History Comment: dyslipidemia - Renal History Hx Renal Disorders: No - Liver History Hx Hepatic Disorders: No - Neurological & Psychiatric Hx Hx Neurological and Psychiatric Disorders: No - Cancer History Hx Cancer: No - Congenital Disorder History Hx Congenital Disorders: No - GI History Hx Gastrointestinal Disorders: Yes Gastrointestinal History Comment: diverticulitis - Other Health History Other Health History: SUN RASH. bloody noses from eliquis. bilat cataract sx - Chronic Pain History Chronic Pain: No - Surgical History Prior Surgeries: BOWEL RESECTION/ COLOSTOMY take down. CATARACTS FELICIA. TONSILLECTOMY. APPENDECTOMY. TUBAL LIGATION ANE Review of Systems Review of Systems: - Exercise capacity METS (RN): 5 METS ANE Patient History - Allergies Allergies/Adverse Reactions: shellfish derived Allergy (Verified 09/14/18 11:25) Rash - Home Medications Home Medications: Apixaban [Eliquis] 06/24/18 [Last Taken 09/14/18] Hydrochlorothiazide 06/24/18 [Last Taken 09/17/18] Lisinopril [Zestril 40 mg (*)] 06/24/18 [Last Taken 09/18/18] Simvastatin 06/24/18 [Last Taken 09/17/18] amLODIPine BESYLATE [Norvasc 5 mg (*)] 06/24/18 [Last Taken 09/17/18] Metoprolol Tartrate 09/14/18 [Last Taken 09/18/18] - NPO status NPO Since - Liquids (Date): 09/18/18 NPO Since - Liquids (Time): 08:00 NPO Since - Solids (Date): 09/17/18 NPO Since - Solids (Time): 19:00 - Smoking Hx Smoking Status: Never smoked - Family Anes Hx Family Hx Anesthesia Complications: none ANE Labs/Vital Signs - Vital Signs Blood Pressure: 181/84 Heart Rate: 60 Respiratory Rate: 20 O2 Sat (%): 95 Height: 154.94 cm Weight: 58.967 kg ANE Physical Exam - Airway Neck exam: FROM Mallampati Score: Class 2 Mouth exam: normal dental/mouth exam - Pulmonary Pulmonary: clear to auscultation - Cardiovascular Cardiovascular: regular rate and rhythym - ASA Status ASA Status: II ANE Anesthesia Plan Anesthesia Plan: general endotracheal anesthesia
[2018-09-18] MEDS: fentaNYL 100 MCG/2 ML INJ IVP PRN ×2 (14:53→15:50)
--- NOTE | 2018-09-18 14:53 | POSTANESTH ---
Post Anesthetic Evaluation Cardiovascular Status: Normal, Stable Respiratory Status: Normal, Stable Level of Consciousness/Mental Status: Can Participate in Eval, Alert and Oriented Pain Control: Adequate, Prn Tx Ordered Nausea/Vomiting Control: Adequate, Prn Tx Ordered Complications Possibly Related to Anesthesia: None Noted
[2018-09-18] MEDS ORDERED: PROMETHAZINE HCL 25 MG/ML INJ IVP PRN (15:14)
[2018-09-18] MEDS ORDERED: NALOXONE HCL 0.4 MG/ML INJ IVP PRN (15:14)
[2018-09-18] MEDS ORDERED: ONDANSETRON 4 MG/2 ML VIAL IVP PRN (15:14)
[2018-09-18] MEDS ORDERED: ACETAMINOPHEN 500 MG TAB PO PRN (15:14)
[2018-09-18] MEDS ORDERED: oxyCODONE IR 5 MG TAB PO PRN (15:14)
[2018-09-18] MEDS ORDERED: LR 500 ML IV PRN (15:14)
[2018-09-18] MEDS ORDERED: HYDROmorphONE/DILAUDID 1 MG/ML INJ IVP PRN (15:14)
[2018-09-18] MEDS ORDERED: oxyCODONE IR 5 MG TAB ONE (15:21)
[2018-09-18] MEDS ORDERED: ACETAMINOPHEN 500 MG TAB ONE (15:23)
[2018-09-18 17:36] VITALS: BP 143/74
--- NOTE | 2018-09-18 22:48 | GOP ---
[f rep st] OPERATIVE REPORT DATE OF OPERATION: 09/18/2018 SURGEON: Kem Campa MD BUILDING RENTAL SUPERINTENDENT: Liliya Agrawal CFA ANESTHESIA: General endotracheal. ANESTHESIOLOGIST: Joey Magallanes DO PREOPERATIVE DIAGNOSIS: Ventral incisional hernia. POSTOPERATIVE DIAGNOSIS: Ventral incisional hernia. PROCEDURE PERFORMED: Robotic assisted ventral incisional hernia repair with mesh. FINDINGS: 4 x 5 cm ventral hernia consistent with preoperative imaging successfully closed with a 0 Stratafix suture and imbricated with a 9 cm covered Symbotex mesh. SPECIMENS: None. ESTIMATED BLOOD LOSS: 5 cc. DESCRIPTION OF PROCEDURE: The patient was greeted in the preoperative suite. Once again, risks, noemy efits, and alternatives were discussed. Consent was signed. She was then brought back to the operat howard suite, placed on the OR table in supine position. After all anesthesia machines including SCDs w ere on and functioning, [employer] time-out was performed. The patient was then induc ed. Her abdomen was prepped and draped in typical sterile fashion. I entered the abdomen using the Veress needle in the left upper quadrant and achieved pneumoperitoneum to 15 mmHg. Then in You's point using the Visiport technique, I successfully entered the patient's abdomen. Through this site I inserted an 8 mm trocar. Under direct visualization, I inserted 2 additional 8 mm trocars, 1 in th e midline, 1 in the right upper quadrant. The patient was then placed in gentle Trendelenburg positi on. I turned my attention toward the patient's inferior midline where the hernia was identified. I first turned my attention toward the inferior portion where I created a flap in the peritoneal tissue to ensure that there were no bladder adhesions to the inferior portion. Once this flap was taken do wn, I cleansed the edges and successfully reapproximated the fascia using a running 0 Stratafix sutur e noting excellent fascial reapproximation imbricating the hernia sac into the closure. After this w as done, I then brought in a 9 cm Symbotex mesh. It was allowed to lay over with appropriate overlap . This was then run to the underlying peritoneum with a 3-0 Vicryl V-Loc stitch. Once this was done , I inspected the remainder of the anatomy and found no other significant findings. Local anesthesia was infiltrated into the operative site. Ports were then removed under direct visualization. The s kin was closed with Monocryl. Dermabond was placed. The patient was then extubated in the operative suite and taken to the PACU in satisfactory condition. DRAINS: None. INSTRUMENT COUNT: All counts were reported as correct x2. /[id number]/MODL
== END 2018-09-18 17:36 | disposition home or self-care (01) ==
LOC: FSGY 10:49
PROVIDERS: ATTEND Surgery
DX: K43.2 Incisional hernia without obstruction or gangrene (principal); I48.0 Paroxysmal atrial fibrillation; Z79.01 Long term (current) use of anticoagulants; I10 Essential (primary) hypertension; E78.5 Hyperlipidemia, unspecified
CPT/HCPCS: C1781; J0690; J1100; J2405; J2704; J3010